=== PATIENT | female | born 1980 | race Caucasian/White ===

== ENCOUNTER 2020-05-31 15:57 | Emergency (ER) | payer MEDICARE, MEDICAID ==
[~2020-05-31] VITALS: Ht 167.7 cm; Wt 154.5 kg
[~2020-05-31 15:57] MED LIST: AC500T; AC500T PO; AMOX500C2 PO; ARIP15TA PO; ARPZ30T PO; CYCL10TA9 PO; DESV100T PO; FLC150T PO; FLX20C; FURO40TA4 PO; HYDR-31; HYDR-3874 PO; HYDR1CAP2 PO; HYDR1TAB PO; HYDR25CA5 PO; IBP800T; IBP800T PO; IMITREX PO; KCL10CCR PO; LORA10TA7 PO; LORA1TAB PO; METR500T PO; MGX400T; OLN10T; OMEP20CA6 PO; PRESTIQUE PO; SULF1TAB38; SUMA100T2 PO; [UNRECOGNIZED DRUG - CODE] PO; trazadone PO
--- NOTE | 2020-05-31 16:36 | ED Integumentary General ---
General Chief Complaint: Skin/Wound Problems Stated Complaint: 2ND COVID SHOT/RASH/L ARM SWELLING Nursing Triage Note: Pt states she had second covid vaccine today and has developed a rash and swelling on her arm Source: patient Exam Limitations: no limitations History of Present Illness Date Seen by Provider: May 31, 2020 Time Seen by Provider: 16:22 Initial Comments This pleasant 39-year-old young lady presents to the emergency room with complaints of left arm swelling, erythema, and mild itching after receiving her second vaccination of the motor during a COVID-19 vaccine. She did not have significant problems with the first dose. She denies any systemic or severe symptoms of allergic reaction such as hives, intense itching, difficulty breathing or swelling of the throat, lips, or tongue. She did take a hyd roxyzine and used topical Benadryl. This was helpful in reducing erythema and itching. She also describes some minor itching of the left upper chest. She denied any nausea, vomiting, lightheadedness, or tachycardia. Allergies and Home Medications Allergies Coded Allergies: diclofenac (Verified Allergy, Severe, BURNING, 08/06/14) ondansetron HCl (Verified Allergy, Severe, 11/03/11) INTERACTS WITH OTHER MEDS risperidone (Verified Allergy, Severe, 11/03/11) meloxicam (Verified Allergy, Intermediate, 11/03/11) COVID-19 vaccine, mRNA-1273, LNP-S (Verified Allergy, Mild, Rash, 05/31/20) Rash and itching of the left arm pseudoephedrine (Unverified Allergy, Mild, 12/20/08) tramadol (Unverified Allergy, Mild, 12/20/08) albuterol (Unverified Adverse Reaction, Unknown, tachycardia, 08/06/14) Uncoded Allergies: NSA (Allergy, Intermediate, 11/03/11) Home Medications Acetaminophen 500 Mg Tablet, 1,000 MG PO Q6H PRN, (Reported) Aripiprazole 15 Mg Tab, 15 MG PO DAILY, (Reported) AM Aripiprazole 30 Mg Tab, 30 MG PO HS, (Reported) Cyclobenzaprine Hcl 10 Mg Tablet, 10 PO BID PRN, (Reported) Desvenlafaxine Succinate 100 Mg Tab.sr.24h, 100 MG PO DAILY, (Reported) Hydrocodone Bit/Acetaminophen 1 Each Tablet, 1-2 EACH PO Q4HR PRN Prescribed by: DARLENE LOMELI on 11/03/11 1858 Hydrocodone/Acetaminophen 1 Each Tablet, 1 EACH PO Q6H PRN for PAIN Prescribed by: KAREN PORTER on 08/06/14 1747 Hydroxyzine Pamoate 25 Mg Capsule, 25 MG PO DAILY PRN, (Reported) TAKES IN THE AFTERNOON Ibuprofen 800 Mg Tablet, 1 EACH PO TID PRN, (Reported) Loratadine 10 Mg Tablet, 10 MG PO DAILY, (Reported) Omeprazole 20 Mg Capsule.dr, 40 MG PO DAILY, (Reported) Potassium Chloride 10 Meq Tablet.sa, 10 MEQ PO DAILY, (Reported) Sumatriptan Succinate 100 Mg Tablet, 0 PO UD, (Reported) 1 TAB AT ONSET OF CORONEL; MAY REPEAT X 1 IN 2 HOURS Patient Home Medication List Home Medication List Reviewed: Yes Review of Systems Review of Systems Constitutional: no symptoms reported EENTM: no symptoms reported Respiratory: no symptoms reported Cardiovascular: no symptoms reported Gastrointestinal: no symptoms reported Genitourinary: no symptoms reported : No Musculoskeletal: no symptoms reported Skin: see HPI Psychiatric/Neurological: No Symptoms Reported Endocrine: No Symptoms Reported Past Mldwkad-Fvlaar-Kiepdb Hx Past Med/Social Hx: Reviewed Nursing Past Med/Soc Hx Patient Social History Alcohol Use: Occasionally Uses Smoking Status: Current Someday Smoker Recent Infectious Disease Expo: No Recent Hopitalizations: Yes (; pancreatitis) Past Medical History Surgeries: Yes (c-sections; ovarian cyst) Respiratory: Yes (ALLERGY INDUCED ASTHMA) COPD Cardiac: Yes (ARRYTHMIA, HX OF ABLATION AGE 25; SVT) Neurological: Yes Reproductive Disorders: Yes (OVARIAN CYSTS (removed 2009)) Sexually Transmitted Disease: No Gastrointestinal: Yes (ACUTE pancreatitis - admitS 12/24/09, 12/28/09 & 01/04/10) Pancreatitis Musculoskeletal: Yes Chronic Back Pain Endocrine: Yes Diabetes, Insulin dep Psychosocial: Yes (BI-POLAR, PERSONALITY DISORDER; POST TRAMATIC STRESS DISORDER) Integumentary: No Blood Disorders: No Family Medical History No Pertinent Family Hx Physical Exam Vital Signs Vital Signs - First Documented 05/31/20 16:13 Temp 36.2 Pulse 78 Resp 18 B/P (MAP) 164/104 (124) Pulse Ox 94 O2 Delivery Room Air Capillary Refill : Less Than 3 Seconds General Appearance: WD/WN, no apparent distress HEENT: normal ENT inspection Neck: normal inspection Cardiovascular: regular rate, rhythm, no edema Respiratory: lungs clear, normal breath sounds, no respiratory distress Extremities: normal inspection, no pedal edema Neurologic/Psychiatric: no motor/sensory deficits, alert, normal mood/affect, oriented x 3 Skin: warm/dry, rash (Subtle erythema and subtle swelling of the left upper extremity from the wrist through the shoulder.) Progress/Results/Core Measures Results/Orders Vital Signs/I&O 05/31/20 05/31/20 16:13 16:44 Temp 36.2 Pulse 78 80 Resp 18 18 B/P (MAP) 164/104 (124) 140/89 Pulse Ox 94 94 O2 Delivery Room Air Blood Pressure Mean: 124 Progress Progress Note : Progress Note Patient did not appear to be in anaphylaxis. Symptoms were improving with use of antihistamines. She was advised to continue as he did with antihistamine therapy. The vaccine was added to her allergy list. Departure Impression Primary Impression: Local reaction to severe acute respiratory syndrome coronavirus 2 (SARS-CoV-2) vaccine Disposition: HOME, SELF-CARE Condition: Stable Departure-Patient Inst. Decision time for Depature: 16:34 Referrals: [facility] (PCP/Family) Primary Care Physician Patient Instructions: COVID-19 Vaccines Add. Discharge Instructions: You may continue to use [id number] antihistamines topically and/or orally. Benadryl (diphenhydramine) or hydroxyzine are both acceptable. Return to the emergency room promptly if you develop worsening symptoms c oncerning for severe allergic reaction such as hives, rapid heart rate, lightheadedness, difficulty breathing, vomiting, or swelling of the tongue, lips, or throat. Call with questions or concerns. Return to care if you have any other significant concerns or progressive symptoms. All discharge instructions reviewed with patient and/or family. Voiced understanding. Copy Copies To 1: JING WEISS JOSHUA T MD May 31, 2020 16:36
[2020-05-31 16:44] VITALS: BP 140/89
== END 2020-05-31 16:44 | disposition home or self-care (01) ==
LOC: EDUNIT# 15:57 → ER 16:00
DX: T88.1XXA Other complications following immunization, not elsewhere classified, initial encounter (principal); J44.9 Chronic obstructive pulmonary disease, unspecified; K21.9 Gastro-esophageal reflux disease without esophagitis; G89.29 Other chronic pain; M54.9 Dorsalgia, unspecified; E11.9 Type 2 diabetes mellitus without complications; F17.200 Nicotine dependence, unspecified, uncomplicated; Z88.6 Allergy status to analgesic agent; Z88.5 Allergy status to narcotic agent; Z88.7 Allergy status to serum and vaccine; Z88.8 Allergy status to other drugs, medicaments and biological substances; Z79.891 Long term (current) use of opiate analgesic
CPT/HCPCS: 99281

== ENCOUNTER 2020-09-03 17:34 | Emergency (ER) | payer MEDICARE, MEDICAID ==
[~2020-09-03] VITALS: Ht 170.2 cm; Wt 153.3 kg
[2020-09-03] MEDS ORDERED: ACHD5005 PO ×3 (18:03→18:16)
--- NOTE | 2020-09-03 18:18 | ED Headache ---
General Chief Complaint: Head/Cervical Problems Stated Complaint: HEADACHE Nursing Triage Note: PT ARRIVED TO THE ER BY PRIVATE VEHICLE WITH CHIEF COMPLAINT OF HEADACHE. PT WAS ALERT, ORIENTED X 4 AND AMBULATORY. 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 PT HAS HAD A MIGRAINE SINCE 1500 WHEN SHE TOOK HER LAST OF MEDICATIONS. TOOK HER MEDICATIONS AND DID NOT HELP. PAIN IS LOCALIZED TO OBACK AND TEMPORAL AREA. PT STATED FOR WHATEVER REASON THEY KEEP DENYING HER MEDICATION REFILLS. TODAY IS 11 YEAR ANNIVERSARY OF HER HUSBANDS PASSING. SHE KNEW SHE WOULD GET A HEADACHE, BUT DID NOT KNOW IT WOULD BE THIS BAD. PT HAS HISTORY OF MIGRAINES. PT HAS HYPERTENSION. 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 LAST ONE IN MAY 2020 PT STATES SHE HAS FREQUENT HEADACHES--AT LEAST 3 HEADACHES EVERY WEEK STATES THIS HEADACHE IS NO DIFFERENT THAN HER USUAL HEADACHES, JUST A LITTLE MO RE INTENSE, BUT HAS HAD HEADACHES THIS BAD AND WORSE IN THE PAST TOOK SUMATRIPTAN, TYLENOL 500 MG AND ZOFRAN AT 1500 STATES BLURRY VISION GOT BETTER, BUT NO RELIEF WITH HEADACHE OR NAUSEA STATES HE HAS BEEN UNDER ALOT OF STRESS LATELY--HER FATHER RECENTLY WAS PLACED ON HOSPICE IN THE LAST FEW WEEKS, AND TODAY IS 11TH ANNIVERSARY OF HER 'S . PT TAKES PROPRANOLOL FOR BLOOD PRESSURE AND HEADACHES NO CHANGE IN DOSE OR ANY MISSED DOSES. TAKES ONCE/DAY. PT IS DIABETIC, BLOOD GLUCOSE 112 AT 1700 PT SMOKES 1 PPD PCP: ADRIANNA-JAILENE, [employer] [facility] Allergies and Home Medications Allergies Coded Allergies: diclofenac (Verified Allergy, Severe, BURNING, 08/06/14) ondansetron HCl (Verified Allergy, Severe, 11/03/11) INTERACTS WITH OTHER MEDS risperidone (Verified Allergy, Severe, 11/03/11) meloxicam (Verified Allergy, Intermediate, 11/03/11) COVID-19 vaccine, mRNA-1273, LNP-S (Verified Allergy, Mild, Rash, 05/31/20) Rash and itching of the left arm pseudoephedrine (Unverified Allergy, Mild, 12/20/08) tramadol (Unverified Allergy, Mild, 12/20/08) albuterol (Unverified Adverse Reaction, Unknown, tachycardia, 08/06/14) Uncoded Allergies: NSA (Allergy, Intermediate, 11/03/11) Home Medications Acetaminophen 500 Mg Tablet, 1,000 MG PO Q6H PRN, (Reported) Aripiprazole 15 Mg Tab, 15 MG PO DAILY, (Reported) AM Aripiprazole 30 Mg Tab, 30 MG PO HS, (Reported) Cyclobenzaprine Hcl 10 Mg Tablet, 10 PO BID PRN, (Reported) Desvenlafaxine Succinate 100 Mg Tab.sr.24h, 100 MG PO DAILY, (Reported) Hydrocodone Bit/Acetaminophen 1 Each Tablet, 1-2 EACH PO Q4HR PRN Prescribed by: DARLENE LOMELI on 11/03/11 1858 Hydrocodone/Acetaminophen 1 Each Tablet, 1 EACH PO Q6H PRN for PAIN Prescribed by: KAREN PORTER on 08/06/14 1747 Hydroxyzine Pamoate 25 Mg Capsule, 25 MG PO DAILY PRN, (Reported) TAKES IN THE AFTERNOON Ibuprofen 800 Mg Tablet, 1 EACH PO TID PRN, (Reported) Loratadine 10 Mg Tablet, 10 MG PO DAILY, (Reported) Omeprazole 20 Mg Capsule.dr, 40 MG PO DAILY, (Reported) Potassium Chloride 10 Meq Tablet.sa, 10 MEQ PO DAILY, (Reported) Sumatriptan Succinate 100 Mg Tablet, 0 PO UD, (Reported) 1 TAB AT ONSET OF CORONEL; MAY REPEAT X 1 IN 2 HOURS Patient Home Medication List Home Medication List Reviewed: Yes Review of Systems Review of Systems Constitutional: no symptoms reported; No chills, No diaphoresis, No dizziness, No fever Eyes: See HPI, Blurred Vision Ears, Nose, Mouth, Throat: no symptoms reported Respiratory: no symptoms reported Cardiovascular: no symptoms reported Gastrointestinal: see HPI; No abdominal pain, No diarrhea; nausea; No vomiting Genitourinary: no symptoms reported Musculoskeletal: no symptoms reported; No back pain, No neck pain Skin: no symptoms reported; No rash Psychiatric/Neurological: See HPI, Anxiety, Depressed, Emotional Problems, Headache; Denies Numbness, Denies Paresthesia, Denies Seizure, Denies Tingling, Denies Tremors, Denies Weakness Past Knwzzqh-Hhpbhp-Ufhvxt Hx Patient Social History Tobacco Use?: Yes (SMOKES 1 PPD) Tobacco type used: Cigarettes Smoking Status: Current Everyday Smoker Smokeless Tobacco Frequency: Current Everyday User Substance use?: Yes Substance type: Marijuana Substance frequency: Daily Alcohol Use?: No Pt feels they are or have been: No Immunizations Up To Date Second COVID19 Vaccination Edwin: MAY 31, 2020 COVID19 Vaccine Knifer Up: [place] Past Medical History Surgery/Hospitalization HX: CARDIAC ABLATION AGE 25 FOR SVT C-SECTIONS OVARIAN CYST REMOVED Surgeries: Yes (c-sections; ovarian cyst) Cardiac, Section Respiratory: Yes (ALLERGY INDUCED ASTHMA) COPD Cardiac: Yes (ARRYTHMIA, HX OF ABLATION AGE 25; SVT) Hypertension, Irregular Heartbeat Neurological: Yes Headaches /Migraines Reproductive Disorders: Yes (OVARIAN CYSTS (removed 2009)) Sexually Transmitted Disease: No Genitourinary: No Gastrointestinal: Yes (ACUTE pancreatitis - admitS 12/24/09, 12/28/09 & 01/04/10) Pancreatitis Musculoskeletal: Yes Chronic Back Pain Endocrine: Yes (OBESITY) Diabetes, Insulin dep HEENT: No Psychosocial: Yes (BI-POLAR, PERSONALITY DISORDER; POST TRAMATIC STRESS DISORDER) Integumentary: No Blood Disorders: No Family Medical History No Pertinent Family Hx Physical Exam Vital Signs Vital Signs - First Documented 09/03/20 17:45 Temp 35.6 Pulse 85 Resp 18 B/P (MAP) 163/121 (135) Pulse Ox 98 O2 Delivery Room Air Capillary Refill : Less Than 3 Seconds Height, Weight, BMI Height: 5'7" Weight: 279lbs. oz. 126.133561oi; 52.00 BMI Method:Stated General Appearance: WD/WN, no apparent distress, obese HEENT: PERRL/EOMI, normal ENT inspection, TMs normal, pharynx normal Neck: non-tender, full range of motion, supple, normal inspection; No lymphadenopathy (R), No lymphadenopathy (L) Cardiovascular: regular rate, rhythm, no murmur Respiratory: normal breath sounds, no respiratory distress, no accessory muscle use Gastrointestinal: non tender, soft Back: normal inspection, no CVA tenderness, no vertebral tenderness Extremities: normal inspection, normal capillary refill Psychiatric: alert, oriented x 3 Crainal Nerves: normal hearing, normal speech, PERRL Coordination/Gait: normal finger to nose, normal gait Motor/Sensory: no motor deficit, no sensory deficit Skin: normal color, warm/dry, tattoos/piercings (TATTOOS) Progress/Results/Core Measures Results/Orders My Orders Orders - NEO MONTIEL DO Ketorolac Injection (Toradol Injection) (09/03/20 18:30) Clonidine Tablet (Catapres Tablet) (09/03/20 18:30) Medications Given in ED Vital Signs/I&O 09/03/20 09/03/20 17:45 19:55 Temp 35.6 Pulse 85 76 Resp 18 18 B/P (MAP) 163/121 (135) 139/109 Pulse Ox 98 96 O2 Delivery Room Air Room Air Blood Pressure Mean: 135 Progress Progress Note : Progress Note GIVEN TORADOL FOR HEADACHE WITH COMPLETE RELIEF OF HEADACHE--STATES SHE FEELS GREAT GIVEN CLONIDINE FOR BLOOD PRESSURE, AND BLOOD PRESSURE COMING DOWN AT DISMISSAL PT FEELS COMFORTABLE GOING HOME Departure Impression Primary Impression: Headache Additional Impression: HTN (hypertension) Disposition: 01 HOME, SELF-CARE Condition: Improved Departure-Patient Inst. Decision time for Depature: 19:35 Referrals: [facility] (PCP/Family) Primary Care Physician Patient Instructions: Headache, Adult (DC), DASH Diet, High Blood Pressure ED Add. Discharge Instructions: CONTINUE YOUR MEDICATIONS PRESCRIBED TYLENOL 1 GRAM/ MOTRIN 800 MG 4 TIMES A DAY NEEDED FOR PAIN/HEADACHE FOLLOW UP WITH YOUR DR TOMORROW IF SYMPTOMS PERSIST All discharge instructions reviewed with patient and/or family. Voiced understanding. NEO MONTIEL DO Sep 03, 2020 18:18
[2020-09-03] MEDS ORDERED: KETOROLAC 60 MG/2 ML VIAL IM ONE (18:30)
[2020-09-03] MEDS ORDERED: cloNIDine 0.1 MG (CATAPRES) TAB PO ONE (18:30)
[2020-09-03 19:55] VITALS: BP 139/109
== END 2020-09-03 19:55 | disposition home or self-care (01) ==
LOC: EDUNIT# 17:34 → ER 17:35
DX: I10 Essential (primary) hypertension (principal); G43.909 Migraine, unspecified, not intractable, without status migrainosus; E11.9 Type 2 diabetes mellitus without complications; F31.9 Bipolar disorder, unspecified; F43.10 Post-traumatic stress disorder, unspecified; F60.9 Personality disorder, unspecified; E66.9 Obesity, unspecified; J44.9 Chronic obstructive pulmonary disease, unspecified; F17.210 Nicotine dependence, cigarettes, uncomplicated; Z79.4 Long term (current) use of insulin; Z79.899 Other long term (current) drug therapy; Z88.5 Allergy status to narcotic agent; Z88.8 Allergy status to other drugs, medicaments and biological substances
CPT/HCPCS: 96372; 99284

== ENCOUNTER 2020-09-14 15:27 | Emergency (ER) | payer MEDICARE, MEDICAID ==
[~2020-09-14] VITALS: Ht 170 cm; Wt 155.0 kg
[~2020-09-14 15:27] MED LIST changes: +ACHD5005 PO
[2020-09-14 15:54] LABS: BASOPHILS # (AUTO) 0.1 10^3/uL (0.0-0.1); BASOPHILS % (AUTO) 1 % (0-10); EOSINOPHILS # (AUTO) 0.2 10^3/uL (0.0-0.3); EOSINOPHILS % (AUTO) 2 % (0-10); HEMATOCRIT 42 % (35-52); HEMOGLOBIN 13.4 g/dL (11.5-16.0); LYMPHOCYTES % (AUTO) 38 % (12-44); MEAN CORPUSCULAR HEMOGLOBIN 26 pg (25-34); MEAN CORPUSCULAR HGB CONC 32 g/dL (32-36); MEAN CORPUSCULAR VOLUME 82 fL (80-99); MEAN PLATELET VOLUME 9.4 fL (9.0-12.2); MONOCYTES # (AUTO) 1.2 10^3/uL (0.0-1.0); MONOCYTES % (AUTO) 9 % (0-12); NEUTROPHILS # (AUTO) 6.8 10^3/uL (1.8-7.8); NEUTROPHILS % (AUTO) 51 % (42-75); PLATELET COUNT 349 10^3/uL (130-400); WHITE BLOOD COUNT 13.3 10^3/uL (4.3-11.0)
[2020-09-14] MEDS ORDERED: ALPRAZolam 0.5 MG (XANAX) TAB PO SCH (16:00)
--- NOTE | 2020-09-14 16:07 | ED Chest Pain ---
General Chief Complaint: Chest Pain Stated Complaint: INTERMITTENT CP/STRESSED Source: patient Exam Limitations: no limitations History of Present Illness Date Seen by Provider: Sep 14, 2020 Time Seen by Provider: 16:07 Initial Comments ER with reports of chest pain onset last night. She attributes this to stress as her father was recently put on hospice. Timing/Duration: 1-2 days Severity/Quality: moderate Location: central Radiation: no radiation Activities at Onset: none ASA po CREPE BOX TENDER: No NTG SL CREPE BOX TENDER: No Associated Symptoms: denies symptoms Allergies and Home Medications Allergies Coded Allergies: diclofenac (Verified Allergy, Severe, BURNING, 08/06/14) ondansetron HCl (Verified Allergy, Severe, 11/03/11) INTERACTS WITH OTHER MEDS risperidone (Verified Allergy, Severe, 11/03/11) meloxicam (Verified Allergy, Intermediate, 11/03/11) COVID-19 vaccine, mRNA-1273, LNP-S (Verified Allergy, Mild, Rash, 05/31/20) Rash and itching of the left arm pseudoephedrine (Unverified Allergy, Mild, 12/20/08) tramadol (Unverified Allergy, Mild, 12/20/08) albuterol (Unverified Adverse Reaction, Unknown, tachycardia, 08/06/14) Uncoded Allergies: NSA (Allergy, Intermediate, 11/03/11) Home Medications Acetaminophen 500 Mg Tablet, 1,000 MG PO Q6H PRN, (Reported) Apixaban 5 Mg Tablet, 5 MG PO BID Prescribed by: JALEN ONEAL on 09/14/201650 Aripiprazole 15 Mg Tab, 15 MG PO DAILY, (Reported) AM Aripiprazole 30 Mg Tab, 30 MG PO HS, (Reported) Cyclobenzaprine Hcl 10 Mg Tablet, 10 PO BID PRN, (Reported) Desvenlafaxine Succinate 100 Mg Tab.sr.24h, 100 MG PO DAILY, (Reported) Diltiazem HCl 120 Mg Cap.er.24h, 120 MG PO DAILY Prescribed by: JALEN ONEAL on 09/14/20 165 Hydrocodone Bit/Acetaminophen 1 Each Tablet, 1-2 EACH PO Q4HR PRN Prescribed by: DARLENE LOMELI on 11/03/11 1858 Hydrocodone/Acetaminophen 1 Each Tablet, 1 EACH PO Q6H PRN for PAIN Prescribed by: KAREN PORTER on 08/06/14 1747 Hydroxyzine Pamoate 25 Mg Capsule, 25 MG PO DAILY PRN, (Reported) TAKES IN THE AFTERNOON Ibuprofen 800 Mg Tablet, 1 EACH PO TID PRN, (Reported) Loratadine 10 Mg Tablet, 10 MG PO DAILY, (Reported) Omeprazole 20 Mg Capsule.dr, 40 MG PO DAILY, (Reported) Potassium Chloride 10 Meq Tablet.sa, 10 MEQ PO DAILY, (Reported) Sumatriptan Succinate 100 Mg Tablet, 0 PO UD, (Reported) 1 TAB AT ONSET OF CORONEL; MAY REPEAT X 1 IN 2 HOURS Patient Home Medication List Home Medication List Reviewed: Yes Review of Systems Review of Systems Constitutional: see HPI EENTM: No Symptoms Reported Respiratory: No Symptoms Reported Cardiovascular: See HPI, Chest Pain Gastrointestinal: No Symptoms Reported Genitourinary: No Symptoms Reported Musculoskeletal: no symptoms reported Skin: no symptoms reported Psychiatric/Neurological: No Symptoms Reported Endocrine: No Symptoms Reported Hematologic/Lymphatic: No Symptoms Reported Past Whgcudb-Vweqyl-Nssmrk Hx Past Medical History Surgery/Hospitalization HX: CARDIAC ABLATION AGE 25 FOR SVT C-SECTIONS OVARIAN CYST REMOVED Surgeries: Yes (c-sections; ovarian cyst) Cardiac, Section Respiratory: Yes (ALLERGY INDUCED ASTHMA) COPD Cardiac: Yes (ARRYTHMIA, HX OF ABLATION AGE 25; SVT) Hypertension, Irregular Heartbeat Neurological: Yes Headaches /Migraines Reproductive Disorders: Yes (OVARIAN CYSTS (removed 2009)) Sexually Transmitted Disease: No Genitourinary: No Gastrointestinal: Yes (ACUTE pancreatitis - admitS 12/24/09, 12/28/09 & 01/04/10) Pancreatitis Musculoskeletal: Yes Chronic Back Pain Endocrine: Yes (OBESITY) Diabetes, Insulin dep HEENT: No Psychosocial: Yes (BI-POLAR, PERSONALITY DISORDER; POST TRAMATIC STRESS DISORDER) Integumentary: No Blood Disorders: No Family Medical History No Pertinent Family Hx Physical Exam Vital Signs Vital Signs - First Documented 09/14/20 15:33 Temp 36.0 Pulse 76 Resp 20 B/P (MAP) 167/108 (127) O2 Delivery Room Air Capillary Refill : Height, Weight, BMI Height: 5'7" Weight: 279lbs. oz. 126.990959ws; 52.00 BMI Method:Stated General Appearance: No Apparent Distress, WD/WN, Obese, Other (EKG shows a rate of 77 atrial flutter) Neck: Full Range of Motion, Normal Inspection Respiratory: No Accessory Muscle Use, No Respiratory Distress Cardiovascular: Normal Peripheral Pulses, Irregularly Irregular Gastrointestinal: Normal Bowel Sounds, Non Tender, Soft Extremity: Normal Capillary Refill, Normal Inspection Neurologic/Psychiatric: Alert, Oriented x3 Skin: Normal Color, Warm/Dry Progress/Results/Core Measures Results/Orders Lab Results Laboratory Tests Test 09/14/20 15:42 Range/Units White Blood Count 13.3 H 4.3-11.0 10^3/uL Red Blood Count 5.12 H 3.80-5.11 10^6/uL Hemoglobin 13.4 11.5-16.0 g/dL Hematocrit 42 35-52 % Mean Corpuscular Volume 82 80-99 fL Mean Corpuscular Hemoglobin 26 25-34 pg Mean Corpuscular Hemoglobin Concent 32 32-36 g/dL Red Cell Distribution Width 17.8 H 10.0-14.5 % Platelet Count 349 130-400 10^3/uL Mean Platelet Volume 9.4 9.0-12.2 fL Immature Granulocyte % (Auto) 0 % Neutrophils (%) (Auto) 51 42-75 % Lymphocytes (%) (Auto) 38 12-44 % Monocytes (%) (Auto) 9 0-12 % Eosinophils (%) (Auto) 2 0-10 % Basophils (%) (Auto) 1 0-10 % Neutrophils # (Auto) 6.8 1.8-7.8 10^3/uL Lymphocytes # (Auto) 5.0 H 1.0-4.0 10^3/uL Monocytes # (Auto) 1.2 H 0.0-1.0 10^3/uL Eosinophils # (Auto) 0.2 0.0-0.3 10^3/uL Basophils # (Auto) 0.1 0.0-0.1 10^3/uL Immature Granulocyte # (Auto) 0.1 0.0-0.1 10^3/uL Neutrophils % (Manual) 55 % Lymphocytes % (Manual) 36 % Monocytes % (Manual) 6 % Eosinophils % (Manual) 2 % Basophils % (Manual) 1 % Anisocytosis SLIGHT Microcytosis SLIGHT Prothrombin Time 12.6 12.2-14.7 SEC INR Comment 0.9 0.8-1.4 Activated Partial Thromboplast Time 29 24-35 SEC D-Dimer 0.33 0.00-0.49 UG/ML Sodium Level 141 135-145 MMOL/L Potassium Level 4.1 3.6-5.0 MMOL/L Chloride Level 105 98-107 MMOL/L Carbon Dioxide Level 25 21-32 MMOL/L Anion Gap 11 5-14 MMOL/L Blood Urea Nitrogen 9 7-18 MG/DL Creatinine 0.74 0.60-1.30 MG/DL Estimat Glomerular Filtration Rate 87 BUN/Creatinine Ratio 12 Glucose Level 134 H 70-105 MG/DL Calcium Level 9.0 8.5-10.1 MG/DL Corrected Calcium 9.1 8.5-10.1 MG/DL Magnesium Level 1.6 1.6-2.4 MG/DL Total Bilirubin 0.2 0.1-1.0 MG/DL Aspartate Amino Transf (AST/SGOT) 19 5-34 U/L Alanine Aminotransferase (ALT/SGPT) 33 0-55 U/L Alkaline Phosphatase 70 40-136 U/L Myoglobin 24.0 10.0-92.0 NG/ML Troponin I < 0.028 <0.028 NG/ML B-Type Natriuretic Peptide 43.6 <100.0 PG/ML Total Protein 7.1 6.4-8.2 GM/DL Albumin 3.9 3.2-4.5 GM/DL My Orders Orders - JALEN ONEAL APRN Cbc With Automated Diff (09/14/20 15:43) Magnesium (09/14/20 15:43) Chest 1 View, Ap/Pa Only (09/14/20 15:43) Ekg Tracing (09/14/20 15:43) Comprehensive Metabolic Panel (09/14/20 15:43) Myoglobin Serum (09/14/20 15:43) Protime With Inr (09/14/20 15:43) Partial Thromboplastin Time (09/14/20 15:43) O2 (09/14/20 15:43) Monitor-Rhythm Ecg Trace Only (09/14/20 15:43) Lipid Panel (09/15/20 06:00) Ed Iv/Invasive Line Start (09/14/20 15:43) BNP (09/14/20 15:43) Fibrin Degradation Products (09/14/20 15:43) Troponin I (09/14/20 15:43) Alprazolam Tablet (Xanax Tablet) (09/14/20 16:00) Manual Differential (09/14/20 15:42) Apixaban Tablet (Eliquis Tablet) (09/14/20 16:45) Diltiazem Cd 24 Hr Capsule (Cardizem Cd (09/14/20 16:45) Medications Given in ED Current Medications Medications Dose Ordered Sig/Sabine Route Start Time Stop Time Status Last Admin Dose Admin Apixaban 5 mg ONCE ONCE PO 09/14/20 16:45 09/14/20 16:46 DC 09/14/20 16:41 5 MG Vital Signs/I&O 09/14/20 09/14/20 15:33 15:33 Temp 36.0 Pulse 76 Resp 20 B/P (MAP) 167/108 (127) O2 Delivery Room Air Room Air Departure Communication (Admissions) She states that she has a history of SVT, she follows with an house decorator at [facility] in [place]. She had a cardiac catheterization at the age of 29. She is on propranolol. She has frequent palpitations and tachycardia that she attributes to SVT. However her EKG here shows this at this time to be rate controlled atrial flutter. She is not an ticoagulated. 1648-discussed with Dr. Landis. Her heart rate is controlled in the 70s, her blood pressure is 165/117 which is certainly going to be tolerant of a calcium channel jeremy like Cardizem CD 120 which will do daily in addition to stroke prophylaxis with Eliquis 5 mg p.o. twice daily. He will follow up with her in the clinic. Impression Primary Impression: New onset atrial flutter Disposition: , SELF-CARE Condition: Stable Departure-Patient Inst. Referrals: [facility] (PCP/Family) Primary Care Physician SYLVIE LANDIS MD Patient Instructions: Atrial Flutter (DC), Going Home on Blood Thinners Add. Discharge Instructions: 1. Call Dr. Landis Thursday to make an appointment to be seen for follow-up. In the meantime start the new medications. Be mindful that you are now on a blood thinner and so any previous injury that might not have blood much will now cause some more significant bleeding. If you fall and hit your head this does warrant evaluation in the emergency room. All discharge instructions reviewed with patient and/or family. Voiced understanding. Scripts Apixaban (Eliquis) 5 Mg Tablet 5 MG PO BID, #60 TAB Prov: JALEN ONEAL APRN 09/14/20 Diltiazem HCl (Cardizem Cd) 120 Mg Cap.er.24h 120 MG PO DAILY, #30 CAP Prov: JALEN ONEAL APRN 09/14/20 JALEN ONEAL APRN Sep 14, 2020 16:07
[2020-09-14 16:08] LABS: INR 0.9 (0.8-1.4); PROTHROMBIN TIME PATIENT 12.6 SEC (12.2-14.7)
[2020-09-14 16:09] LABS: ALBUMIN 3.9 GM/DL (3.2-4.5); POTASSIUM 4.1 MMOL/L (3.6-5.0)
[2020-09-14 16:12] LABS: TOTAL PROTEIN 7.1 GM/DL (6.4-8.2)
[2020-09-14 16:13] LABS: BILIRUBIN,TOTAL 0.2 MG/DL (0.1-1.0)
[2020-09-14 16:15] LABS: CREATININE SERUM 0.74 MG/DL (0.60-1.30)
[2020-09-14 16:17] LABS: ANISOCYTOSIS SLIGHT; BASOPHILS % (MANUAL) 1 %; EOSINOPHILS % (MANUAL) 2 %; LYMPHOCYTES % (MANUAL) 36 %; MICROCYTOSIS SLIGHT; MONOCYTES % (MANUAL) 6 %; NEUTROPHILS % (MANUAL) 55 %
[2020-09-14 16:18] LABS: MAGNESIUM 1.6 MG/DL (1.6-2.4)
--- NOTE | 2020-09-14 16:40 | Diagnostic Imaging Report ---
INDICATION: Chest pain COMPARISON: 04/12/2006 TECHNIQUE: Single Chest dated 09/14/2020. FINDINGS: Examination slightly limited secondary to patient body habitus. The cardiac silhouette is prominent. No significant pulmonary vascular congestion. No focal pulmonary opacity. No large-volume pleural effusion. No pneumothorax. No acute osseous abnormality. IMPRESSION: Prominence of the cardiac silhouette, which may be accentuated by patient body habitus and technique. No definite acute cardiopulmonary abnormality. Dictated by: Dictated on workstation # [id number]
[2020-09-14] MEDS ORDERED: APIXABAN 5 MG (ELIQUIS) TABLET PO ONE (16:45)
[2020-09-14] MEDS ORDERED: dilTIAZem120 MG (CARDIZEM CD) CAP PO SCH (16:45)
[2020-09-14] MEDS ORDERED: DILT120C82 PO (16:51)
[2020-09-14] MEDS ORDERED: APIX5TAB PO (16:51)
[2020-09-14 17:11] VITALS: BP 145/100
== END 2020-09-14 17:11 | disposition home or self-care (01) ==
LOC: EDUNIT# 15:27 → ER 15:29
DX: I48.92 Unspecified atrial flutter (principal); J44.9 Chronic obstructive pulmonary disease, unspecified; I10 Essential (primary) hypertension; G89.29 Other chronic pain; M54.9 Dorsalgia, unspecified; E11.9 Type 2 diabetes mellitus without complications; F31.9 Bipolar disorder, unspecified; E66.9 Obesity, unspecified; Z79.891 Long term (current) use of opiate analgesic; Z79.899 Other long term (current) drug therapy; Z68.43 Body mass index [BMI] 50.0-59.9, adult
CPT/HCPCS: 36415; 71045; 80053; 83735; 83874; 83880; 84484; 85007; 85027; 85379; 85610; 85730; 93005; 93041

== ENCOUNTER 2020-09-22 18:49 | Emergency (ER) | payer MEDICARE, MEDICAID ==
[~2020-09-22] VITALS: Ht 170.1 cm; Wt 145.0 kg
[~2020-09-22 18:49] MED LIST changes: +APIX5TAB PO; +DILT120C82 PO
--- NOTE | 2020-09-22 18:58 | ED Cardiac General ---
History of Present Illness General Stated Complaint: PALPITATIONS Source: patient History of Present Illness Date Seen by Provider: Sep 22, 2020 Time Seen by Provider: 18:48 Initial Comments PT ARRIVES VIA EMS FROM [facility] PT WENT TO [facility] TODAY BECAUSE OF ELEVATED BP AT HOME OF 150/90 PT C/O CHEST PAIN WHILE THERE, AND EKG WAS DONE AND SHOWED ATRIAL FLUTTER WITH RATE OF 87, SO EMS WAS CALLED. EMS GAVE 324 MG ASPIRIN PT WAS DX WITH ATRIAL FLUTTER ON 09/14/20 AND IS ON CARDIZEM, PROPRANOLOL AND ELIQUIS PT DOES NOT KNOW IF SHE IS ALWAYS IN ATRIAL FLUTTER OR NOT, DOES NOT HAVE ANY SENSATION OF IRREGULAR HEART BEAT OR PALPITATIONS STATES THE ONLY TIME SHE HAS ANY SENSATION OF AN IRREGULAR HEART BEAT IS WHEN IT IS BEATING FAST, AND HAS NOT BEEN HAVING THAT STATES SHE HAS HAD SLIGHT CHEST PAIN A COUPLE OF TIMES TODAY, BUT IS NOT HAVING PAIN NOW NO SHORTNESS OF BREATH NO SWELLING IN FEET/ANKLES NO SWEATS OR SYNCOPE PT HAD PRIOR CARDIAC ABLATION IN 2005 FOR SVT PT HAS NOT SEEN A POWERTRAIN DESIGN ENGINEER IN MANY YEARS HAS FIRST APPOINTMENT WITH DR. HOBSON 09/27/20 PCP: [facility], JUSTO RICCI POWERTRAIN DESIGN ENGINEER: DR. HOBSON Allergies and Home Medications Allergies Coded Allergies: diclofenac (Verified Allergy, Severe, BURNING, 08/06/14) ondansetron HCl (Verified Allergy, Severe, 11/03/11) INTERACTS WITH OTHER MEDS risperidone (Verified Allergy, Severe, 11/03/11) meloxicam (Verified Allergy, Intermediate, 11/03/11) COVID-19 vaccine, mRNA-1273, LNP-S (Verified Allergy, Mild, Rash, 05/31/20) Rash and itching of the left arm pseudoephedrine (Unverified Allergy, Mild, 12/20/08) tramadol (Unverified Allergy, Mild, 12/20/08) albuterol (Unverified Adverse Reaction, Unknown, tachycardia, 08/06/14) Uncoded Allergies: NSA (Allergy, Intermediate, 11/03/11) Home Medications Acetaminophen 500 Mg Tablet, 1,000 MG PO Q6H PRN, (Reported) Apixaban 5 Mg Tablet, 5 MG PO BID Prescribed by: JALEN ONEAL on 09/14/20 7001 Aripiprazole 15 Mg Tab, 15 MG PO DAILY, (Reported) AM Aripiprazole 30 Mg Tab, 30 MG PO HS, (Reported) Cyclobenzaprine Hcl 10 Mg Tablet, 10 PO BID PRN, (Reported) Desvenlafaxine Succinate 100 Mg Tab.sr.24h, 100 MG PO DAILY, (Reported) Diltiazem HCl 120 Mg Cap.er.24h, 120 MG PO DAILY Prescribed by: JALEN ONEAL on 09/14/20 1651 Hydrocodone Bit/Acetaminophen 1 Each Tablet, 1-2 EACH PO Q4HR PRN Prescribed by: DARLENE LOMELI on 11/03/11 1858 Hydrocodone/Acetaminophen 1 Each Tablet, 1 EACH PO Q6H PRN for PAIN Prescribed by: KAREN PORTER on 08/06/14 1747 Hydroxyzine Pamoate 25 Mg Capsule, 25 MG PO DAILY PRN, (Reported) TAKES IN THE AFTERNOON Ibuprofen 800 Mg Tablet, 1 EACH PO TID PRN, (Reported) Loratadine 10 Mg Tablet, 10 MG PO DAILY, (Reported) Omeprazole 20 Mg Capsule.dr, 40 MG PO DAILY, (Reported) Potassium Chloride 10 Meq Tablet.sa, 10 MEQ PO DAILY, (Reported) Sumatriptan Succinate 100 Mg Tablet, 0 PO UD, (Reported) 1 TAB AT ONSET OF CORONEL; MAY REPEAT X 1 IN 2 HOURS Review of Systems Review of Systems Constitutional: no symptoms reported; No dizziness Respiratory: No Symptoms Reported; Denies Shortness of Air Cardiovascular: See HPI Gastrointestinal: No Symptoms Reported Genitourinary: No Symptoms Reported Musculoskeletal: no symptoms reported Skin: no symptoms reported Psychiatric/Neurological: No Symptoms Reported Endocrine: No Symptoms Reported Hematologic/Lymphatic: No Symptoms Reported Past Qahpbdf-Riykro-Krxbmu Hx Patient Social History Tobacco Use?: Yes (1 PPD) Tobacco type used: Cigarettes Smoking Status: Current Everyday Smoker Substance use?: Yes Substance type: Marijuana Additional substance use comme: SMOKES MARIJUANA DAILY Substance frequency: Daily Alcohol Use?: No Past Medical History Surgery/Hospitalization HX: CARDIAC ABLATION AGE 25 FOR SVT IN 2005 C-SECTIONS OVARIAN CYST REMOVED 10/2009 Surgeries: Yes (c-sections; ovarian cyst) Cardiac, Section Respiratory: Yes (ALLERGY INDUCED ASTHMA) Asthma, COPD Cardiac: Yes (ATRIAL FLUTTER DX 09/14/20; HX OF CARDIAC ABLATION AGE 25 FOR SVT) Hypertension, Irregular Heartbeat Neurological: Yes Headaches /Migraines Reproductive Disorders: Yes (OVARIAN CYSTS (removed 2009)) Sexually Transmitted Disease: No Genitourinary: No Gastrointestinal: Yes (ACUTE PANCREATITIS/ADMITTED 12/24/09, 12/28/09 & 01/04/10) Pancreatitis Musculoskeletal: Yes Chronic Back Pain Endocrine: Yes (OBESITY) Diabetes, Insulin dep HEENT: No Cancer: No Psychosocial: Yes (BI-POLAR, PERSONALITY DISORDER; POST TRAMATIC STRESS DISORDER) Anxiety, PTSD, Bipolar, Personality Disorder, Depression Integumentary: No Blood Disorders: No Family Medical History No Pertinent Family Hx Physical Exam Vital Signs Vital Signs - First Documented 09/22/20 18:59 Temp 36.8 Pulse 85 Resp 20 B/P (MAP) 144/85 (104) Pulse Ox 97 O2 Delivery Room Air Capillary Refill : Height, Weight, BMI Height: 5'7" Weight: 279lbs. oz. 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 Norm as Tested Skin: Normal Color, Warm/Dry, Tattoos/Piercings (MULTIPLE TATTOOS) Progress/Results/Core Measures Results/Orders Lab Results Laboratory Tests Test 09/22/20 18:56 09/22/20 19:00 09/22/20 19:25 Range/Units White Blood Count 14.0 H 4.3-11.0 10^3/uL Red Blood Count 5.48 H 3.80-5.11 10^6/uL Hemoglobin 14.4 11.5-16.0 g/dL Hematocrit 45 35-52 % Mean Corpuscular Volume 82 80-99 fL Mean Corpuscular Hemoglobin 26 25-34 pg Mean Corpuscular Hemoglobin Concent 32 32-36 g/dL Red Cell Distribution Width 17.2 H 10.0-14.5 % Platelet Count 379 130-400 10^3/uL Mean Platelet Volume 9.8 9.0-12.2 fL Immature Granulocyte % (Auto) 0 % Neutrophils (%) (Auto) 53 42-75 % Lymphocytes (%) (Auto) 36 12-44 % Monocytes (%) (Auto) 9 0-12 % Eosinophils (%) (Auto) 1 0-10 % Basophils (%) (Auto) 1 0-10 % Neutrophils # (Auto) 7.5 1.8-7.8 10^3/uL Lymphocytes # (Auto) 5.0 H 1.0-4.0 10^3/uL Monocytes # (Auto) 1.3 H 0.0-1.0 10^3/uL Eosinophils # (Auto) 0.2 0.0-0.3 10^3/uL Basophils # (Auto) 0.1 0.0-0.1 10^3/uL Immature Granulocyte # (Auto) 0.0 0.0-0.1 10^3/uL Neutrophils % (Manual) 51 % Lymphocytes % (Manual) 40 % Monocytes % (Manual) 6 % Eosinophils % (Manual) 3 % Poikilocytosis SLIGHT Sodium Level 135-145 MMOL/L Potassium Level 4.1 3.6-5.0 MMOL/L Chloride Level 106 98-107 MMOL/L Carbon Dioxide Level 24 21-32 MMOL/L Anion Gap 9 5-14 MMOL/L Blood Urea Nitrogen 9 7-18 MG/DL Creatinine 0.78 0.60-1.30 MG/DL Estimat Glomerular Filtration Rate 82 BUN/Creatinine Ratio 12 Glucose Level 108 H 70-105 MG/DL Calcium Level 10.1 8.5-10.1 MG/DL Corrected Calcium 10.1 8.5-10.1 MG/DL Magnesium Level 2.1 1.6-2.4 MG/DL Total Bilirubin 0.3 0.1-1.0 MG/DL Aspartate Amino Transf (AST/SGOT) 22 5-34 U/L Alanine Aminotransferase (ALT/SGPT) 39 0-55 U/L Alkaline Phosphatase 74 40-136 U/L Troponin I < 0.028 <0.028 NG/ML B-Type Natriuretic Peptide 16.2 <100.0 PG/ML Total Protein 7.4 6.4-8.2 GM/DL Albumin 4.0 3.2-4.5 GM/DL TSH [place] Testing 2.12 0.35-4.94 UIU/ML Serum Test, Qualitative NEGATIVE NEGATIVE Glucometer 120 H 70-110 MG/DL Urine Opiates Screen NEGATIVE NEGATIVE Urine Oxycodone Screen NEGATIVE NEGATIVE Urine Methadone Screen NEGATIVE NEGATIVE Urine Propoxyphene Screen NEGATIVE NEGATIVE Urine Barbiturates Screen NEGATIVE NEGATIVE Ur Tricyclic Antidepressants Screen NEGATIVE NEGATIVE Urine Phencyclidine Screen NEGATIVE NEGATIVE Urine Amphetamines Screen NEGATIVE NEGATIVE Urine Methamphetamines Screen NEGATIVE NEGATIVE Urine Benzodiazepines Screen NEGATIVE NEGATIVE Urine Cocaine Screen NEGATIVE NEGATIVE Urine Cannabinoids Screen POSITIVE H NEGATIVE My Orders Orders - NEO MONTIEL DO Accucheck Stat ONCE (09/22/20 18:51) Ed Iv/Invasive Line Start (09/22/20 18:51) Ekg Tracing (09/22/20 18:51) Monitor-Rhythm Ecg Trace Only (09/22/20 18:51) BNP (09/22/20 18:51) Cbc With Automated Diff (09/22/20 18:51) Comprehensive Metabolic Panel (09/22/20 18:51) Drug Screen Stat (Urine) (09/22/20 18:51) Hcg,Qualitative Serum (09/22/20 18:51) Magnesium (09/22/20 18:51) Thyroid Analyzer (09/22/20 18:51) Troponin I (09/22/20 18:51) Chest 1 View, Ap/Pa Only (09/22/20 18:51) Manual Differential (09/22/20 18:56) Vital Signs/I&O 09/22/20 18:59 Temp 36.8 Pulse 85 Resp 20 B/P (MAP) 144/85 (104) Pulse Ox 97 O2 Delivery Room Air Progress Progress Note : Progress Note PT IS ASYMPTOMATIC THROUGHOUT ENTIRE ER STAY HEART RATE REMAINS IN 70'S, IN CONTINUOUS ATRIAL FLUTTER--PT IS UNAWARE OF IRREGULAR HEART BEAT BP STABLE Initial ECG Impression Date: Sep 22, 2020 Initial ECG Impression Time: 18:54 Initial ECG Rate: 77 Initial ECG Rhythm: A Fib/Flutter (ATRIAL FLUTTER) Diagnostic Imaging Comments CXR--NO ACUTE PROCESS, PER RADIOLOGIST REPORT Reviewed: Reviewed by Me Departure Communication (Admissions) 1949--SPOKE WITH DR. HOBSON, HE IS AGREEABLE TO DOING A REPEAT TROPONIN AND EKG, AND SENDING PT HOME IF UNCHANGED AND PT REMAINS ASYMPTOMATIC AND RATE CONT ROLLED. Impression Primary Impression: ATRIAL FLUTTER RATE CONTROLLED Additional Impressions: IDDM (insulin dependent diabetes mellitus) HTN (hypertension) Marijuana use Cigarette smoker Disposition: 01 HOME, SELF-CARE Condition: Stable Departure-Patient Inst. Referrals: [facility] (PCP/Family) Primary Care Physician NICO HOBSON JR, MD Patient Instructions: Atrial Flutter (DC), Controlling Blood Sugar in Children With Diabetes, High Blood Pressure (DC), Marijuana Use and Addiction (DC) Add. Discharge Instructions: CONTINUE YOUR CURRENT MEDICATIONS PRESCRIBED KEEP YOUR APPOINTMENT WITH DR. HOBSON THIS WEEK RETURN TO ER IF SYMPTOMS WORSEN NEO MONTIEL DO Sep 22, 2020 18:58
[2020-09-22 18:59] VITALS: BP 144/85
[2020-09-22 19:03] LABS: BASOPHILS # (AUTO) 0.1 10^3/uL (0.0-0.1); BASOPHILS % (AUTO) 1 % (0-10); EOSINOPHILS # (AUTO) 0.2 10^3/uL (0.0-0.3); EOSINOPHILS % (AUTO) 1 % (0-10); HEMATOCRIT 45 % (35-52); HEMOGLOBIN 14.4 g/dL (11.5-16.0); LYMPHOCYTES % (AUTO) 36 % (12-44); MEAN CORPUSCULAR HEMOGLOBIN 26 pg (25-34); MEAN CORPUSCULAR HGB CONC 32 g/dL (32-36); MEAN CORPUSCULAR VOLUME 82 fL (80-99); MEAN PLATELET VOLUME 9.8 fL (9.0-12.2); MONOCYTES # (AUTO) 1.3 10^3/uL (0.0-1.0); MONOCYTES % (AUTO) 9 % (0-12); NEUTROPHILS # (AUTO) 7.5 10^3/uL (1.8-7.8); NEUTROPHILS % (AUTO) 53 % (42-75); PLATELET COUNT 379 10^3/uL (130-400)
[2020-09-22 19:22] LABS: ALANINE AMINOTRANSFERASE 39 U/L (0-55); ALKALINE PHOSPHATASE 74 U/L (40-136); BILIRUBIN,TOTAL 0.3 MG/DL (0.1-1.0); BUN/CREATININE RATIO 12; CALCIUM 10.1 MG/DL (8.5-10.1); CARBON DIOXIDE 24 MMOL/L (21-32); CREATININE SERUM 0.78 MG/DL (0.60-1.30); GFR ESTIMATED 82; GLUCOSE 108 MG/DL (70-105); MAGNESIUM 2.1 MG/DL (1.6-2.4); TOTAL PROTEIN 7.4 GM/DL (6.4-8.2)
[2020-09-22 19:42] LABS: CHLORIDE 106 MMOL/L (98-107); POTASSIUM 4.1 MMOL/L (3.6-5.0); TSH (THYROID ANALYZER) 2.12 UIU/ML (0.35-4.94)
[2020-09-22 20:05] LABS: EOSINOPHILS % (MANUAL) 3 %; LYMPHOCYTES % (MANUAL) 40 %; MONOCYTES % (MANUAL) 6 %; NEUTROPHILS % (MANUAL) 51 %; POIKILOCYTOSIS SLIGHT
--- NOTE | 2020-09-22 20:06 | Diagnostic Imaging Report ---
EXAMINATION: Chest 1 view. HISTORY: Chest pain. COMPARISON: 09/14/2020. FINDINGS: The lung volumes are normal. No focal consolidation is seen. No large pleural effusion or pneumothorax is seen. The cardiomediastinal silhouette is normal in size and contour. No acute osseous abnormality is seen. IMPRESSION: No acute pleuroparenchymal process. Dictated by: Dictated on workstation # [id number]
[2020-09-22 20:09] LABS: AMPHETAMINE SCREEN, URINE NEGATIVE (NEGATIVE); BARBITURATE SCREEN URINE NEGATIVE (NEGATIVE); BENZODIAZEPINES SCREEN URINE NEGATIVE (NEGATIVE); CANNABINOID SCREEN, URINE POSITIVE (NEGATIVE); COCAINE SCREEN URINE NEGATIVE (NEGATIVE); METHADONE STAT NEGATIVE (NEGATIVE); METHAMPHETAMINE SCREEN URINE S NEGATIVE (NEGATIVE); OPIATE SCREEN URINE NEGATIVE (NEGATIVE); OXYCODONE STAT NEGATIVE (NEGATIVE); PROPOXYPHENE STAT NEGATIVE (NEGATIVE); TRICYCLIC ANTIDEPRESSANTS SCRE NEGATIVE (NEGATIVE)
== END 2020-09-22 21:55 | disposition home or self-care (01) ==
LOC: EDUNIT# 18:49 → ER 18:49
DX: I48.92 Unspecified atrial flutter (principal); E11.9 Type 2 diabetes mellitus without complications; I10 Essential (primary) hypertension; F12.90 Cannabis use, unspecified, uncomplicated; G43.909 Migraine, unspecified, not intractable, without status migrainosus; E66.9 Obesity, unspecified; J44.9 Chronic obstructive pulmonary disease, unspecified; G89.29 Other chronic pain; M54.9 Dorsalgia, unspecified; F41.9 Anxiety disorder, unspecified; F31.9 Bipolar disorder, unspecified; F17.210 Nicotine dependence, cigarettes, uncomplicated; Z68.43 Body mass index [BMI] 50.0-59.9, adult; Z79.891 Long term (current) use of opiate analgesic; Z79.01 Long term (current) use of anticoagulants; Z79.899 Other long term (current) drug therapy
CPT/HCPCS: 36415; 71045; 80053; 80306; 82947; 83735; 83880; 84443; 84484; 84703; 85007; 85027; 93005; 93041

== ENCOUNTER → 2020-10-02 | Outpatient (CLI) | payer MEDICARE, MEDICAID | LOC: CARD 08:26 | PROVIDERS: ATTEND Internal Medicine Cardiovascular Disease | DX: I51.7 Cardiomegaly (principal); I48.3 Typical atrial flutter | CPT/HCPCS: 93306 ==

== ENCOUNTER → 2020-10-11 | Outpatient (CLI) | payer MEDICARE, MEDICAID ==
[~2020-10-11] MED LIST changes: +CATHETER FLUSH 10 ML SYR IV PRN; +REGADENOSON 0.4 MG/5 ML SYR (LEXISCAN) IV ONE
[2020-10-11 08:15] VITALS: BP 133/94
--- NOTE | 2020-10-11 10:34 | NUCLEAR STRESS TEST ---
REGADENOSON NUCLEAR STRESS Date of procedure: 10/11/2020. Primary care provider: [facility]. Admitting physician: Agapito Canales Jr., MD. INDICATION: Typical atrial flutter. BASELINE ELECTROCARDIOGRAM: Atrial flutter with variable AV block with a ventricular rate of 80 bpm with low voltage in the precordial leads and nonspecific ST changes. STRESS TEST PROCEDURE: The patient was administered 0.4 mg of intravenous Regadenoson. The resting heart rate was 80 bpm and the peak heart rate was 100 bpm. The resting blood pressure was 134/94 mmHg and the minimum blood pressure was 127/82 mmHg. This represents a normal heart rate and a normal blood pressure response to Regadenoson. The test was stopped due to the protocol. There was no chest discomfort during the test. The patient was in atrial flutter for the duration of the test. There were no significant stress induced electrocardiogram changes. NUCLEAR PROCEDURE: The patient was administered 11 mCi of intravenous technetium 99m Tetrofosmin at rest for the rest images. The patient was subsequently administered 31.2 mCi of intravenous technetium 99m Tetrofosmin at peak stress for the stress images. Following an appropriate wait after each injection, imaging was obtained. The images were subsequently processed and reformatted in the usual views. Gated imaging was obtained. The image quality was adequate but with the fair amount of gastrointestinal and breast attenuation artifact. CT attenuation correction was used as a adjunct to standard imaging. Both the corrected and uncorrected images were reviewed for interpretation. NUCLEAR RESULTS: There was a moderate sized, moderate intensity, reversible mid to distal anterior defect with a moderate amount of inducible ischemia. There was normal left ventricular chamber size with an end-diastolic volume of 100 mL and an end-systolic volume of 27 mL. There was borderline transient ischemic dilatation. The TID ratio was 1.27. There was normal wall motion in all segments with a calculated ejection fraction of 73%. IMPRESSION: 1. Normal heart rate and blood pressure response to regadenoson. 2. There was no chest discomfort during the test. 3. The patient was in atrial flutter for the duration of the test. 4. There were no electrocardiogram changes during the test. 5. There was a moderate sized, moderate intensity, reversible mid to distal anterior defect with a moderate amount of inducible ischemia. 6. There was borderline transient ischemic dilatation with a TID ratio of 1.27. 7. There was normal wall motion in all segments with a calculated ejection fraction of 73%. 8. This is an abnormal result representing an overall moderate risk of future cardiac events. Certain portions of this document may have been dictated utilizing voice recognition technology. Inherent to this technology, typographical and grammatical errors may exist. As much as I am diligent to identify and correct these mistakes, some errors may remain in the document. AGAPITO CANALES JR, MD Oct 11, 2020 10:34
== END ==
LOC: CARD 06:39
PROVIDERS: ATTEND Internal Medicine Cardiovascular Disease
DX: I48.3 Typical atrial flutter (principal)
CPT/HCPCS: 78452; 93017; A9502

== ENCOUNTER 2020-10-25 10:35 | Day surgery (SDC) | payer MEDICARE, MEDICAID ==
[2020-10-25] VITALS (9 sets, daily range): BP systolic 102–129; BP diastolic 55–81
[~2020-10-25] VITALS: Ht 170 cm; Wt 154.0 kg
[~2020-10-25 10:35] MED LIST changes: -CATHETER FLUSH 10 ML SYR IV PRN; -REGADENOSON 0.4 MG/5 ML SYR (LEXISCAN) IV ONE
[2020-10-25] MEDS ORDERED: NS IV 1000 ML 1,000 ML IV ONE (11:30)
[2020-10-25] MEDS ORDERED: CATHETER FLUSH 10 ML SYR IV PRN (11:30)
[2020-10-25] MEDS ORDERED: ASPIRIN 81 MG CHEW (CHILDREN'S ASA) PO ONE (11:30)
[2020-10-25] MEDS ORDERED: MIDAZOLAM 5 MG/5 ML (VERSED) VIAL ONE (11:45)
[2020-10-25] MEDS ORDERED: NITRO DRIP 25000 MCG/D5W 250 ML IV ONE (11:45)
[2020-10-25] MEDS ORDERED: ASPIRIN 81 MG CHEW (CHILDREN'S ASA) ONE (11:45)
[2020-10-25] MEDS ORDERED: VERAPAMIL 5 MG/2 ML (CALAN) VIAL IV ONE (11:45)
[2020-10-25] MEDS ORDERED: HEParin 1000 UNIT/ML (10ML VIAL) FOR BOLUS ONE (11:45)
[2020-10-25] MEDS ORDERED: fentaNYL INJ 100 MCG/2 ML AMP ONE (11:46)
[2020-10-25] MEDS ORDERED: NS IV 1000 ML 1,000 ML ONE (11:51)
[2020-10-25] MEDS ORDERED: EXEN2AUT SQ (12:05)
[2020-10-25] MEDS ORDERED: DULO60CA59 PO (12:05)
[2020-10-25] MEDS ORDERED: PRAV20TA3 PO (12:05)
[2020-10-25] MEDS ORDERED: PANT40TA52 PO (12:05)
[2020-10-25] MEDS ORDERED: PROP20TA5 PO (12:05)
[2020-10-25] MEDS ORDERED: CARI4.5C PO (12:05)
[2020-10-25] MEDS ORDERED: ONDA-105 PO (12:05)
[2020-10-25] MEDS ORDERED: CETI10TA17 PO (12:05)
[2020-10-25] MEDS ORDERED: SUMA100T3 PO (12:05)
[2020-10-25] MEDS ORDERED: CYCL10TA9 PO (12:05)
[2020-10-25] MEDS ORDERED: HYDR-3584 PO (12:05)
[2020-10-25] MEDS ORDERED: PEDI18TA2 PO (12:05)
[2020-10-25] MEDS ORDERED: RT-ALBUINH INH (12:05)
[2020-10-25] MEDS ORDERED: DILT-27 PO (12:05)
[2020-10-25] MEDS ORDERED: GLIM2TAB4 PO (12:05)
[2020-10-25] MEDS ORDERED: METF-865 PO (12:05)
[2020-10-25] MEDS ORDERED: BUSP10TA95 PO ×2 (12:05)
[2020-10-25] MEDS ORDERED: APIX5TAB PO (12:05)
--- NOTE | 2020-10-25 12:05 | Pre-Op Note & Conscious Sedat ---
Pre-Operative Progress Note H&P Reviewed The H&P was reviewed, patient examined and no changes noted. Date H&P Reviewed: Oct 25, 2020 Time H&P Reviewed: 12:05 Pre-Op Diagnosis: Abnormal nuclear stress test Conscious Sedation Pre-Proced ASA Score 2 For ASA 3 and 4: Consider anesthesia and medical clearance. Also, for patients with a history of failed moderate sedation consider anesthesia. Airway Lungs Heart ASA score ASA 1: a normal healthy patient ASA 2: a patient with a mild systemic disease (mid diabetes, controlled hypertension, obesity ASA 3: a patient with a severe systemic disease that limits activity (angina, COPD, prior Myocardial infarction) ASA 4: a patient with an incapacitating disease that is a constant threat to life (CHF, renal failure) ASA 5: a moribund patient not expected to survive 24 hrs. (ruptured aneurysm) ASA 6: a declared brain- patient whose organs are being harvested. For emergent operations, add the letter E after the classification Mallampati Classification Grade 3 Sedation Plan Analgesia, Amnesia, Plan communicated to team members, Discussed options with patient/fam, Discussed risks with patient/fam The patient is an appropriate candidate to undergo the planned procedure, sedation, and anesthesia. The patient immediately re-assessed prior to indication. NICO HOBSON JR, MD Oct 25, 2020 12:05
[2020-10-25] MEDS ORDERED: PATIENT MAY USE OWN MEDS, ALL PO SCH (12:45)
[2020-10-25] MEDS ORDERED: NS IV 1000 ML 1,000 ML IV SCH (12:45)
--- NOTE | 2020-10-25 12:48 | Cardiac Cath Report ---
CARDIAC CATHETERIZATION DATE OF PROCEDURE: 10/25/2020 INDICATION: Abnormal nuclear stress test. HISTORY: The patient is a 40 year old female with typical atrial flutter who I had her undergo a nuclear stress test. This demonstrated moderate sized reversible anteroapical defect with a moderate amount of inducible ischemia with a normal ejection fraction. There was also borderline transient ischemic dilatation. This was not overall moderate risk result. In light of the abnormal stress test, she is now referred for further evaluation with a cardiac catheterization. PROCEDURES PERFORMED: 1. Left heart catheterization with hemodynamic measurements. 2. Diagnostic inupiat coronary angiography. PROCEDURE DESCRIPTION: After informed consent and in the fasting state, left heart catheterization was performed through the right radial artery utilizing a 6 [place] system by percutaneous approach. Standard Ebony catheters were utilized for the diagnostic portion of the procedure. All catheters were exchanged over a guidewire. Following the procedure, a vascular band was applied to the radial artery access site and the sheath was removed with good hemostasis. RESULTS: HEMODYNAMICS: The aortic pressure was 124/84 mmHg. The left ventricular pressure was 113/0 mmHg with a left ventricular end-diastolic pressure of 15 mmHg. There was no significant pressure gradient upon pullback across aortic valve. CORONARY ANGIOGRAPHY: Left main coronary artery: Free of significant disease. Left anterior descending coronary artery: Free of significant disease. Left circumflex coronary artery: Free of significant disease. Right coronary artery: Dominant and free of significant disease. IMPRESSION: 1. Mildly elevated left ventricular end-diastolic pressure. 2. Angiographically normal-appearing coronary arteries in a right dominant system. 3. The patient is known to have normal left ventricular systolic function with a calculated ejection fraction of 73% by nuclear stress test performed on 10/11/2020. 4. The patient most likely had a false positive stress test. Certain portions of this document may have been dictated utilizing voice re cognition technology. Inherent to this technology, typographical and grammatical errors may exist. As much as I am diligent to identify and correct these mistakes, some errors may remain in the document. NICO HOBSON JR, MD Oct 25, 2020 12:47
== END 2020-10-25 16:10 ==
LOC: CATH 10:35 → SDC 13:03 → CATH 16:10
PROVIDERS: ATTEND Internal Medicine Cardiovascular Disease
DX: I48.3 Typical atrial flutter (principal); I47.1 Supraventricular tachycardia; I10 Essential (primary) hypertension; E11.9 Type 2 diabetes mellitus without complications; E66.01 Morbid (severe) obesity due to excess calories; R94.39 Abnormal result of other cardiovascular function study; F17.210 Nicotine dependence, cigarettes, uncomplicated; Z79.899 Other long term (current) drug therapy; Z79.01 Long term (current) use of anticoagulants; Z79.84 Long term (current) use of oral hypoglycemic drugs; Z90.89 Acquired absence of other organs; Z82.49 Family history of ischemic heart disease and other diseases of the circulatory system; Z68.43 Body mass index [BMI] 50.0-59.9, adult
CPT/HCPCS: 93458; C1894

== ENCOUNTER 2020-11-16 15:22 | Emergency (ER) | payer MEDICARE, MEDICAID ==
[~2020-11-16] VITALS: Ht 170 cm; Wt 154.0 kg
[~2020-11-16 15:22] MED LIST changes: +BUSP10TA95 PO; +CARI4.5C PO; +CETI10TA17 PO; +DILT-27 PO; +DULO60CA59 PO; +EXEN2AUT SQ; +GLIM2TAB4 PO; +HYDR-3584 PO; +METF-865 PO; +ONDA-105 PO; +PANT40TA52 PO; +PEDI18TA2 PO; +PRAV20TA3 PO; +PROP20TA5 PO; +RT-ALBUINH INH; +SUMA100T3 PO
[2020-11-16] MEDS ORDERED: ALPR0.5T PO (16:28)
--- NOTE | 2020-11-16 16:28 | ED Psychosocial ---
General Chief Complaint: Psych/Social Disorder Stated Complaint: ANXIETY/EMOTIONAL/HEADACHE Nursing Triage Note: PT ARRIVES TO ER WITH C/O FEELING ANXIOUS AND EMOTIONAL DUE TO HER FATHER BEING PUT ON HOSPICE AND MENTAL HEALTH NOT HELPING HER. Source: patient Exam Limitations: no limitations History of Present Illness Date Seen by Provider: Nov 16, 2020 Time Seen by Provider: 16:25 Initial Comments To your with reports of anxiety. She was recently taken off of her hydroxyzine because it was too sedating. It was not replaced with anything and she is only on BuSpar and does not feel that it is helping. Currently her dad is on hospice, she went to visit him today and he did not recognize her and seems to be acutely worsening. She is very upset over this and would like something to help with anxiety control in the upcoming few days as he is expected to pass. Timing/Duration: this morning Severity: moderate Associated Symptoms: anxiety Allergies and Home Medications Allergies Coded Allergies: diclofenac (Verified Allergy, Severe, BURNING, 08/06/14) ondansetron HCl (Verified Allergy, Severe, 11/03/11) INTERACTS WITH OTHER MEDS risperidone (Verified Allergy, Severe, 11/03/11) meloxicam (Verified Allergy, Intermediate, 11/03/11) COVID-19 vaccine, mRNA, [id number], (Verified Allergy, Mild, Rash, 05/31/20) Rash and itching of the left arm pseudoephedrine (Unverified Allergy, Mild, 12/20/08) tramadol (Unverified Allergy, Mild, 12/20/08) albuterol (Unverified Adverse Reaction, Unknown, tachycardia, 08/06/14) Uncoded Allergies: NSA (Allergy, Intermediate, 11/03/11) Patient Home Medication List Home Medication List Reviewed: Yes Albuterol Sulfate (Proventil Hfa) 6.7 Gm Hfa.aer.ad, 2 PUFF INH Q6H PRN for SHORTNESS OF BREATH, (Reported) Entered as Reported by: GREY GORMAN on 10/25/20 1205 Apixaban (Eliquis) 5 Mg Tablet, 5 MG PO BID, (Reported) Entered as Reported by: GREY GORMAN on 10/25/20 1205 Buspirone HCl (Buspirone HCl) 10 Mg Tablet, 30 MG PO DAILY, (Reported) Entered as Reported by: GREY GORMAN on 10/25/201204 Buspirone HCl (Buspirone HCl) 10 Mg Tablet, 20 MG PO HS, (Reported) Entered as Reported by: GREY GORMAN on 10/25/201204 Cariprazine Hydrochloride (Vraylar) 4.5 Mg Capsule, 4.5 MG PO DAILY, (Reported) Entered as Reported by: GREY GORMAN on 10/25/201204 Cetirizine HCl (Cetirizine HCl) 10 Mg Tablet, 10 MG PO DAILY, (Reported) Entered as Reported by: GREY GORMAN on 10/25/201204 Cyclobenzaprine HCl (Cyclobenzaprine HCl) 10 Mg Tablet, 10 MG PO TID PRN for MUSCLE SPASMS, (Reported) Entered as Reported by: GREY GORMAN on 10/25/201204 Diltiazem HCl (Diltiazem 24Hr ER) 120 Mg Cap.er.24h, 120 MG PO DAILY, (Reported) Entered as Reported by: GREY GORMAN on 10/25/201204 Duloxetine HCl (Duloxetine HCl) 60 Mg Capsule.dr, 60 MG PO BID, (Reported) Entered as Reported by: GREY GORMAN on 10/25/201204 Exenatide Microspheres (Bydureon Bcise) 2 Mg/0.85 Ml Auto.injct, 2 MG SQ THUR, (Reported) Entered as Reported by: GREY GORMAN on 10/25/201204 Glimepiride (Glimepiride) 2 Mg Tablet, 2 MG PO DAILY, (Reported) Entered as Reported by: GREY GORMAN on 10/25/201204 Hydroxyzine HCl (Hydroxyzine HCl) 10 Mg Tablet, 5-10 MG PO DAILY PRN for ANXIETY, (Reported) Entered as Reported by: GREY GORMAN on 10/25/201204 Metformin HCl (Metformin HCl ER) 500 Mg Tab.er.24h, 1,000 MG PO BID, (Reported) Entered as Reported by: GREY GORMAN on 10/25/201204 Ondansetron HCl (Ondansetron HCl) 4 Mg Tablet, 4 MG PO Q8H PRN for NAUSEA/VOMITING-1ST LINE, (Reported) Entered as Reported by: GREY GORMAN on 10/25/201204 Pantoprazole Sodium (Pantoprazole Sodium) 40 Mg Tablet.dr, 40 MG PO BID, (Reported) Entered as Reported by: GREY GORMAN on 10/25/201204 Pedi Mv No.79/Ferrous Fumarate (Flintstones with Iron Tab Chew) 18 Mg Tab.chew, 18 MG PO DAILY, (Reported) Entered as Reported by: GREY GORMAN on 10/25/201204 Pravastatin Sodium (Pravastatin Sodium) 20 Mg Tablet, 20 MG PO HS, (Reported) Entered as Reported by: GREY GORMAN on 10/25/201204 Propranolol HCl (Propranolol HCl) 20 Mg Tablet, 20 MG PO BID, (Reported) Entered as Reported by: GREY GORMAN on 10/25/201204 Sumatriptan Succinate (Sumatriptan Succinate) 100 Mg Tablet, 100 MG PO UD PRN for MIGRAINE, (Reported) Entered as Reported by: GREY GORMAN on 10/25/201204 Review of Systems Constitutional: see HPI EENTM: see HPI Respiratory: no symptoms reported Cardiovascular: no symptoms reported Genitourinary: no symptoms reported Musculoskeletal: no symptoms reported Skin: no symptoms reported Psychiatric/Neurological: See HPI, Anxiety Past Wtzcbmp-Dvnfry-Havlns Hx Past Medical History Surgery/Hospitalization HX: CARDIAC ABLATION AGE 25 FOR SVT IN 2005 C-SECTIONS OVARIAN CYST REMOVED 10/2009 Surgeries: Yes (c-sections; ovarian cyst) Cardiac, Section Respiratory: Yes (ALLERGY INDUCED ASTHMA) Asthma, COPD Cardiac: Yes (ATRIAL FLUTTER DX 09/14/20; HX OF CARDIAC ABLATION AGE 25 FOR SVT) Hypertension, Irregular Heartbeat Neurological: Yes Headaches /Migraines Last Menstrual Period: Nov 15, 2020 Reproductive Disorders: Yes (OVARIAN CYSTS (removed 2009)) Sexually Transmitted Disease: No Genitourinary: No Gastrointestinal: Yes (ACUTE PANCREATITIS/ADMITTED 12/24/09, 12/28/09 & 01/04/10) Pancreatitis Musculoskeletal: Yes Chronic Back Pain Endocrine: Yes (OBESITY) Diabetes, Insulin dep HEENT: No Cancer: No Psychosocial: Yes (BI-POLAR, PERSONALITY DISORDER; POST TRAMATIC STRESS DISORDER) Anxiety, PTSD, Bipolar, Personality Disorder, Depression Integumentary: No Blood Disorders: No Family Medical History No Pertinent Family Hx Physical Exam Vital Signs - First Documented 11/16/20 15:41 Temp 36.5 Pulse 80 Resp 20 B/P (MAP) 135/95 (108) Pulse Ox 99 O2 Delivery Room Air Capillary Refill : Less Than 3 Seconds Height, Weight, BMI Height: 5'7" Weight: 279lbs. oz. 126.974571ko; 53.00 BMI Method:Stated General Appearance: WD/WN, no apparent distress HEENT: PERRL/EOMI, normal ENT inspection Respiratory: normal breath sounds, no respiratory distress, no accessory muscle use Gastrointestinal: normal bowel sounds, non tender, soft Extremities: normal range of motion, non-tender Neurologic/Psychiatric: alert, normal mood/affect, oriented x 3 Appearance/Memory: appropriate appearance, appropriate insight Behavior/Eye Contact: cooperative, good eye contact Thoughts/Hallucinations: normal thought pattern, no apparent hallucination Skin: normal color, warm/dry Progress/Results/Core Measures Results/Orders My Orders Orders - JALEN ONEAL APRN Alprazolam Tablet (Xanax Tablet) (11/16/20 16:30) Vital Signs/I&O 11/16/20 15:41 Temp 36.5 Pulse 80 Resp 20 B/P (MAP) 135/95 (108) Pulse Ox 99 O2 Delivery Room Air Blood Pressure Mean: 108 Departure Impression Primary Impression: Anxiety Disposition: 01 HOME, SELF-CARE Condition: Stable Departure-Patient Inst. Decision time for Depature: 16:27 Referrals: [facility]/K (PCP/Family) Primary Care Physician Patient Instructions: Anxiety, Adult (DC) Add. Discharge Instructions: All discharge instructions reviewed with patient and/or family. Voiced understanding. Scripts Alprazolam (Xanax) 0.5 Mg Tablet 0.5 MG PO BID PRN for ANXIETY, #10 TAB Prov: JALEN ONEAL APRN 11/16/20 JALEN ONEAL APRN Nov 16, 2020 16:28
[2020-11-16 16:30] VITALS: BP 135/95
[2020-11-16] MEDS ORDERED: ALPRAZolam 0.5 MG (XANAX) TAB PO SCH (16:30)
== END 2020-11-16 16:37 | disposition home or self-care (01) ==
LOC: EDUNIT# 15:22 → ER 15:24
DX: F41.9 Anxiety disorder, unspecified (principal); I10 Essential (primary) hypertension; J44.9 Chronic obstructive pulmonary disease, unspecified; E66.9 Obesity, unspecified; F31.9 Bipolar disorder, unspecified; E11.9 Type 2 diabetes mellitus without complications; G43.909 Migraine, unspecified, not intractable, without status migrainosus; Z68.43 Body mass index [BMI] 50.0-59.9, adult; Z79.01 Long term (current) use of anticoagulants; Z79.899 Other long term (current) drug therapy
CPT/HCPCS: 99283

== ENCOUNTER 2020-12-06 07:53 | Day surgery (SDC) | payer MEDICARE, MEDICAID ==
[2020-12-06] VITALS (8 sets, daily range): BP systolic 112–136; BP diastolic 75–103
[~2020-12-06] VITALS: Ht 171.5 cm; Wt 156.0 kg
[~2020-12-06 07:53] MED LIST changes: +ALPR0.5T PO
[2020-12-06] MEDS ORDERED: NS IV 1000 ML 1,000 ML ONE (07:57)
[2020-12-06] MEDS ORDERED: MIDAZOLAM 5 MG/5 ML (VERSED) VIAL IV ONE (08:15)
[2020-12-06] MEDS ORDERED: CATHETER FLUSH 10 ML SYR IV ONE (08:15)
[2020-12-06] MEDS ORDERED: NS IV 1000 ML 1,000 ML IV ONE (08:15)
[2020-12-06] MEDS ORDERED: fentaNYL INJ 100 MCG/2 ML AMP IV ONE (08:15)
[2020-12-06] MEDS ORDERED: SERT100T PO (08:27)
[2020-12-06] MEDS ORDERED: proPOfol 200 MG/20 ML (DIPRIVAN) VIAL IV ONE (08:38)
[2020-12-06] MEDS ORDERED: MIDAZOLAM 5 MG/5 ML (VERSED) VIAL ONE (08:38)
--- NOTE | 2020-12-06 09:11 | Anesthesia-General Post-Op ---
MAC Patient Condition Mental Status/LOC: Same as Preop Cardiovascular: Satisfactory Nausea/Vomiting: Absent Respiratory: Satisfactory Pain: Controlled Complications: Absent Post Op Complications Complications None Follow Up Care/Instructions Patient Instructions None needed. Anesthesiology Discharge Order Discharge Order Patient is doing well, no complaints, stable vital signs, no apparent adverse anesthesia problems. No complications reported per nursing. TAYLOR YATES CRNA Dec 06, 2020 09:11
--- NOTE | 2020-12-06 09:11 | Cardiac Procedure Note ---
Cardiology Procedures Date of Procedure 12/06/2020 DIRECT-CURRENT CARDIOVERSION INDICATION: TYPICAL ATRIAL FLUTTER. PROCEDURE: After informed consent and in the fasting state, direct-current cardioversion was performed with 1 synchronized biphasic shock at 50 J with successful conversion of atrial flutter to a junctional rhythm which later progressed to sinus rhythm with type I second-degree AV block. IMPRESSION: 1. Status post successful direct-current cardioversion with 1 synchronized biphasic shock at 50 J with conversion of typical atrial flutter to a junctional rhythm which later progressed to sinus rhythm with type I second-degree AV block. Certain portions of this document may have been dictated utilizing voice re cognition technology. Inherent to this technology, typographical and grammatical errors may exist. As much as I am diligent to identify and correct these mistakes, some errors may remain in the document. NICO HOBSON JR, MD Dec 06, 2020 09:11
== END 2020-12-06 10:21 | disposition home or self-care (01) ==
LOC: CATH 07:53
PROVIDERS: ATTEND Internal Medicine Cardiovascular Disease
DX: I48.3 Typical atrial flutter (principal); E66.01 Morbid (severe) obesity due to excess calories; E11.9 Type 2 diabetes mellitus without complications; E78.2 Mixed hyperlipidemia; I10 Essential (primary) hypertension; I71.2 Thoracic aortic aneurysm, without rupture; F17.210 Nicotine dependence, cigarettes, uncomplicated; I27.20 Pulmonary hypertension, unspecified; K21.9 Gastro-esophageal reflux disease without esophagitis; J44.9 Chronic obstructive pulmonary disease, unspecified; Z90.81 Acquired absence of spleen; Z79.84 Long term (current) use of oral hypoglycemic drugs; Z79.899 Other long term (current) drug therapy; Z68.43 Body mass index [BMI] 50.0-59.9, adult; Z88.7 Allergy status to serum and vaccine; Z88.8 Allergy status to other drugs, medicaments and biological substances
CPT/HCPCS: 84703; 92960; 93005

== ENCOUNTER 2021-01-26 16:51 | Emergency (ER) | payer MEDICARE, MEDICAID ==
[~2021-01-26] VITALS: Ht 170.2 cm; Wt 156.0 kg
[~2021-01-26 16:51] MED LIST changes: +CYCL10TA25 PO; +SERT100T PO
[2021-01-26] MEDS ORDERED: LACTATED RINGERS 1,000 ML IV STA (17:09)
[2021-01-26] MEDS ORDERED: ASPIRIN 81 MG CHEW (CHILDREN'S ASA) PO ONE (17:15)
[2021-01-26 17:26] LABS: BASOPHILS # (AUTO) 0.1 10^3/uL (0.0-0.1); BASOPHILS % (AUTO) 1 % (0-10); EOSINOPHILS # (AUTO) 0.1 10^3/uL (0.0-0.3); EOSINOPHILS % (AUTO) 1 % (0-10); HEMATOCRIT 44 % (35-52); HEMOGLOBIN 13.5 g/dL (11.5-16.0); LYMPHOCYTES # (AUTO) 4.7 10^3/uL (1.0-4.0); LYMPHOCYTES % (AUTO) 38 % (12-44); MEAN CORPUSCULAR HEMOGLOBIN 25 pg (25-34); MEAN CORPUSCULAR HGB CONC 31 g/dL (32-36); MEAN CORPUSCULAR VOLUME 79 fL (80-99); MEAN PLATELET VOLUME 9.4 fL (9.0-12.2); MONOCYTES % (AUTO) 8 % (0-12); NEUTROPHILS # (AUTO) 6.6 10^3/uL (1.8-7.8); NEUTROPHILS % (AUTO) 53 % (42-75); PLATELET COUNT 382 10^3/uL (130-400); WHITE BLOOD COUNT 12.5 10^3/uL (4.3-11.0)
--- NOTE | 2021-01-26 17:31 | ED Chest Pain ---
General Chief Complaint: Chest Pain Stated Complaint: CHEST PAIN JITTERY/SHAKEY Source: patient Exam Limitations: no limitations (VERONICA NEGRO MD) History of Present Illness Date Seen by Provider: Jan 26, 2021 Time Seen by Provider: 17:07 Initial Comments Here with report of central chest discomfort but is getting over bronchitis. She has been taking a Z-Kenneth. She did take Mucinex DM today and she has not taken that before. Symptoms started after that. She does have problems with pseudoephedrine and similar. She is also on Symbicort. Denies nausea, vomiting, diarrhea, weakness but does have cough that is resolving with bronchitis as well as central sharp intermittent chest pain that started about 3 hours ago. This is nonradiating. Denies sweating or diaphoresis. Does have history of atrial fibrillation and atrial flutter as well as SVT and has had ablations previously. 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) NTG SL WINDOW TRIMMER APPRENTICE: No Associated Symptoms: No abdominal pain, No back pain, No diaphoresis, No fever/chills, No nausea/vomiting, No shortness of breath, No weakness (VERONICA NEGRO MD) Allergies and Home Medications Allergies Coded Allergies: diclofenac (Verified Allergy, Severe, BURNING, 08/06/14) ondansetron HCl (Verified Allergy, Severe, 11/03/11) INTERACTS WITH OTHER MEDS risperidone (Verified Allergy, Severe, 11/03/11) meloxicam (Verified Allergy, Intermediate, 11/03/11) COVID-19 vaccine, mRNA, [id number], (Verified Allergy, Mild, Rash, 05/31/20) Rash and itching of the left arm pseudoephedrine (Unverified Allergy, Mild, 12/20/08) tramadol (Unverified Allergy, Mild, 12/20/08) albuterol (Unverified Adverse Reaction, Unknown, tachycardia, 08/06/14) Uncoded Allergies: NSA (Allergy, Intermediate, 11/03/11) Patient Home Medication List Home Medication List Reviewed: Yes (VERONICA NEGRO MD) Albuterol Sulfate (Proventil Hfa) 6.7 Gm Hfa.aer.ad, 2 PUFF INH Q6H PRN for SHORTNESS OF BREATH, (Reported) Entered as Reported by: GREY GORMAN on 10/25/20 120 Alprazolam (Xanax) 0.5 Mg Tablet, 0.5 MG PO BID PRN for ANXIETY Prescribed by: JALEN ONEAL on 11/16/20 1628 Apixaban (Eliquis) 5 Mg Tablet, 5 MG PO BID, (Reported) Entered as Reported by: GREY GORMAN on 10/25/20 120 Buspirone HCl (Buspirone HCl) 10 Mg Tablet, 30 MG PO DAILY, (Reported) Entered as Reported by: GREY GORMAN on 10/25/20 120 Buspirone HCl (Buspirone HCl) 10 Mg Tablet, 20 MG PO HS, (Reported) Entered as Reported by: GREY GORMAN on 10/25/20 120 Cariprazine Hydrochloride (Vraylar) 4.5 Mg Capsule, 4.5 MG PO DAILY, (Reported) Entered as Reported by: GREY GORMAN on 10/25/20 120 Cetirizine HCl (Cetirizine HCl) 10 Mg Tablet, 10 MG PO DAILY, (Reported) Entered as Reported by: GREY GORMAN on 10/25/20 120 Cyclobenzaprine HCl (Cyclobenzaprine HCl) 10 Mg Tablet, 10 MG PO TID PRN for MUSCLE SPASMS, (Reported) Entered as Reported by: GREY GORMAN on 10/25/20 120 Diltiazem HCl (Diltiazem 24Hr ER) 120 Mg Cap.er.24h, 120 MG PO DAILY, (Reported) Entered as Reported by: GREY GORMAN on 10/25/20 120 Exenatide Microspheres (Bydureon Bcise) 2 Mg/0.85 Ml Auto.injct, 2 MG SQ THUR, (Reported) Entered as Reported by: GREY GORMAN on 10/25/20 120 Glimepiride (Glimepiride) 2 Mg Tablet, 2 MG PO DAILY, (Reported) Entered as Reported by: GREY GORMAN on 10/25/20 120 Hydroxyzine HCl (Hydroxyzine HCl) 10 Mg Tablet, 5-10 MG PO DAILY PRN for ANXIETY, (Reported) Entered as Reported by: GREY GORMAN on 10/25/201204 Metformin HCl (Metformin HCl ER) 500 Mg Tab.er.24h, 1,000 MG PO BID, (Reported) Entered as Reported by: GREY GORMAN on 10/25/201204 Ondansetron HCl (Ondansetron HCl) 4 Mg Tablet, 4 MG PO Q8H PRN for NAUSEA/VOMITING-1ST LINE, (Reported) Entered as Reported by: GREY GORMAN on 10/25/201204 Pantoprazole Sodium (Pantoprazole Sodium) 40 Mg Tablet.dr, 40 MG PO BID, (Reported) Entered as Reported by: GREY GORMAN on 10/25/201204 Pedi Mv No.79/Ferrous Fumarate (Flintstones with Iron Tab Chew) 18 Mg Tab.chew, 18 MG PO DAILY, (Reported) Entered as Reported by: GREY GORMAN on 10/25/201204 Pravastatin Sodium (Pravastatin Sodium) 20 Mg Tablet, 20 MG PO HS, (Reported) Entered as Reported by: GREY GORMAN on 10/25/201204 Propranolol HCl (Propranolol HCl) 20 Mg Tablet, 20 MG PO BID, (Reported) Entered as Reported by: GREY GORMAN on 10/25/201204 Sertraline HCl (Zoloft) 100 Mg Tablet, 100 MG PO DAILY, (Reported) Entered as Reported by: RITO HADLEY on 12/06/20 0827 Sumatriptan Succinate (Sumatriptan Succinate) 100 Mg Tablet, 100 MG PO UD PRN for MIGRAINE, (Reported) Entered as Reported by: GREY GORMAN on 10/25/201204 Review of Systems Review of Systems Constitutional: see HPI; No chills, No fever; other (Jittery feeling) EENTM: No Nose Pain, No Throat Swelling Respiratory: Denies Cough, Denies SOA at Rest Cardiovascular: Chest Pain; Denies Edema; Irregular Heart Rate, Lightheadedness Gastrointestinal: Denies Nausea, Denies Vomiting Genitourinary: No Symptoms Reported Musculoskeletal: No back pain, No neck pain Skin: no symptoms reported Psychiatric/Neurological: See HPI (VERONICA NEGRO MD) All Other Systems Reviewed Negative Unless Noted: Yes (VERONICA NEGRO MD) Past Feogdww-Dkkyrj-Shefzt Hx Patient Social History Tobacco Use?: Yes Tobacco type used: Cigarettes Substance use?: Yes Substance type: Marijuana Substance frequency: Once in a while Alcohol Use?: No (VERONICA NEGRO MD) Immunizations Up To Date First/Initial COVID19 Vaccinat: APRIL 2020 Second COVID19 Vaccination Edwin: MAY 2020 (VERONICA NEGRO MD) Past Medical History Surgery/Hospitalization HX: CARDIAC ABLATION AGE 25 FOR SVT IN 2005 C-SECTIONS OVARIAN CYST REMOVED 10/2009 Surgeries: Yes (c-sections; ovarian cyst) Cardiac, Section Respiratory: Yes (ALLERGY INDUCED ASTHMA) Asthma, COPD Cardiac: Yes (ATRIAL FLUTTER DX 09/14/20; HX OF CARDIAC ABLATION AGE 25 FOR SVT) Hypertension, Irregular Heartbeat Neurological: Yes Headaches /Migraines Reproductive Disorders: Yes (OVARIAN CYSTS (removed 2009)) Sexually Transmitted Disease: No Genitourinary: No Gastrointestinal: Yes (ACUTE PANCREATITIS/ADMITTED 12/24/09, 12/28/09 & 01/04/10) Pancreatitis Musculoskeletal: Yes Chronic Back Pain Endocrine: Yes (OBESITY) Diabetes, Insulin dep HEENT: No Cancer: No Psychosocial: Yes (BI-POLAR, PERSONALITY DISORDER; POST TRAMATIC STRESS DISORDER) Anxiety, PTSD, Bipolar, Personality Disorder, Depression Integumentary: No Blood Disorders: No (VERONICA NEGRO MD) Family Medical History Reviewed Nursing Family Hx (VERONICA NEGRO MD) No Pertinent Family Hx (VERONICA NEGRO MD) Physical Exam Vital Signs Vital Signs - First Documented 01/26/21 16:57 Temp 36.5 Pulse 85 Resp 20 B/P (MAP) 146/109 (121) Pulse Ox 95 O2 Delivery Room Air (DINESH,NEO K DO) Vital Signs Capillary Refill : (VERONICA NEGRO MD) Height, Weight, BMI Height: 5'7" Weight: 279lbs. oz. 126.960397jc; 53.03 BMI Method:Stated General Appearance: No Apparent Distress, WD/WN HEENT: PERRL/EOMI, Pharynx Normal Neck: Non Tender, Supple Respiratory: Lungs Clear, Normal Breath Sounds Cardiovascular: Regular Rate, Rhythm, No Murmur Gastrointestinal: Non Tender, Soft Extremity: Normal Range of Motion, Non Tender Neurologic/Psychiatric: Alert, Oriented x3 Skin: Normal Color, Warm/Dry (VERONICA NEGRO MD) Progress/Results/Core Measures Results/Orders Lab Results Laboratory Tests Test 01/26/21 17:18 Range/Units White Blood Count 12.5 H 4.3-11.0 10^3/uL Red Blood Count 5.49 H 3.80-5.11 10^6/uL Hemoglobin 13.5 11.5-16.0 g/dL Hematocrit 44 35-52 % Mean Corpuscular Volume 79 L 80-99 fL Mean Corpuscular Hemoglobin 25 25-34 pg Mean Corpuscular Hemoglobin Concent 31 L 32-36 g/dL Red Cell Distribution Width 15.9 H 10.0-14.5 % Platelet Count 382 130-400 10^3/uL Mean Platelet Volume 9.4 9.0-12.2 fL Immature Granulocyte % (Auto) 0 % Neutrophils (%) (Auto) 53 42-75 % Lymphocytes (%) (Auto) 38 12-44 % Monocytes (%) (Auto) 8 0-12 % Eosinophils (%) (Auto) 1 0-10 % Basophils (%) (Auto) 1 0-10 % Neutrophils # (Auto) 6.6 1.8-7.8 10^3/uL Lymphocytes # (Auto) 4.7 H 1.0-4.0 10^3/uL Monocytes # (Auto) 1.0 0.0-1.0 10^3/uL Eosinophils # (Auto) 0.1 0.0-0.3 10^3/uL Basophils # (Auto) 0.1 0.0-0.1 10^3/uL Immature Granulocyte # (Auto) 0.0 0.0-0.1 10^3/uL Prothrombin Time 14.0 12.2-14.7 SEC INR Comment 1.0 0.8-1.4 Activated Partial Thromboplast Time 36 H 24-35 SEC D-Dimer 0.07 0.00-0.49 UG/ML Sodium Level 139 135-145 MMOL/L Potassium Level 4.1 3.6-5.0 MMOL/L Chloride Level 104 98-107 MMOL/L Carbon Dioxide Level 25 21-32 MMOL/L Anion Gap 10 5-14 MMOL/L Blood Urea Nitrogen 11 7-18 MG/DL Creatinine 0.79 0.60-1.30 MG/DL Estimat Glomerular Filtration Rate 81 BUN/Creatinine Ratio 14 Glucose Level 98 70-105 MG/DL Calcium Level 9.5 8.5-10.1 MG/DL Corrected Calcium 9.4 8.5-10.1 MG/DL Magnesium Level 1.9 1.6-2.4 MG/DL Total Bilirubin 0.2 0.1-1.0 MG/DL Aspartate Amino Transf (AST/SGOT) 19 5-34 U/L Alanine Aminotransferase (ALT/SGPT) 28 0-55 U/L Alkaline Phosphatase 70 40-136 U/L Myoglobin 49.8 10.0-92.0 NG/ML Troponin I < 0.028 <0.028 NG/ML Total Protein 7.5 6.4-8.2 GM/DL Albumin 4.1 3.2-4.5 GM/DL (DINESH,NEO K DO) Medications Given in ED Current Medications Medications Dose Ordered Sig/Sabine Route Start Time Stop Time Status Last Admin Dose Admin Aspirin 324 mg ONCE ONCE PO 01/26/21 17:15 01/26/21 17:16 DC 01/26/21 17:22 324 MG (DINESH,NEO K DO) Vital Signs/I&O 01/26/21 16:57 Temp 36.5 Pulse 85 Resp 20 B/P (MAP) 146/109 (121) Pulse Ox 95 O2 Delivery Room Air (DINESH,NEO K DO) Progress Progress Note : Progress Note Seen and evaluated. IV, labs, EKG, chest x-ray and ASA 324 mg p.o. ordered. I have reviewed previous history including heart cath and previous EKGs. She has normal EF and no significant vascular disease. Does have history of ablations. EKG does show a junctional rhythm QRS duration is normal. Patient had similar appearing EKG that was noted to be second-degree type I block by Dr. Canales in November of this year. The jittery feeling may be related to Mucinex DM and medication effect. We will give 1 L of LR and monitor patient. Discussed with patient to avoid [id number]-[id number] products with DM in them. (VERONICA NEGRO MD) Progress Note : Progress Note 1800--ASSUMED CARE FROM DR. NEGRO, LAB PENDING. PT IS CURRENTLY ASYMPTOMATIC. VITALS STABLE. (NEO MONTIEL DO) Initial ECG Impression Date: Jan 26, 2021 Initial ECG Impression Time: 17:01 Initial ECG Rate: 87 Comment Accelerated junctional rhythm versus atypical block second-degree. No evidence of ST elevation AL. Normal axis. Similar to 12/06/2020. Interpreted by me. (VERONICA NEGRO MD) Diagnostic Imaging Comments CXR--PER RADIOLOGIST REPORT AT 1802 FINDINGS: Cardiomegaly. Normal pulmonary vascularity. No focal pulmonary opacity. No pleural effusion or pneumothorax. No acute osseous findings. IMPRESSION: Stable cardiomegaly. No acute cardiopulmonary findings. Reviewed: Reviewed by Me (NEO MONTIEL DO) Departure Impression Primary Impression: Chest wall pain Additional Impression: Acute bronchitis Disposition: HOME, SELF-CARE Condition: Improved Departure-Patient Inst. Decision time for Depature: 18:07 (NEO MONTIEL DO) Referrals: [facility] (PCP/Family) Primary Care Physician Patient Instructions: Acute Bronchitis, Adult (DC), Costochondritis (DC) Add. Discharge Instructions: CONTINUE YOUR REGULAR MEDICATIONS PRESCRIBED AVOID OVER THE COUNTER MEDICATIONS WITH DECONGESTANTS OR COUGH SUPPRESSANTS IN THEM TYLENOL AND MOTRIN NEEDED FOR PAIN OR FEVER FOLLOW UP WITH YOUR DR IN 2-3 DAYS IF NO BETTER, RETURN TO ER IF WORSE All discharge instructions reviewed with patient and/or family. Voiced understanding. VERONICA NEGRO MD Jan 26, 2021 17:31 NEO MONTIEL DO Jan 26, 2021 18:03
[2021-01-26 17:38] LABS: ALBUMIN 4.1 GM/DL (3.2-4.5); POTASSIUM 4.1 MMOL/L (3.6-5.0)
[2021-01-26 17:39] LABS: CALCIUM 9.5 MG/DL (8.5-10.1)
[2021-01-26 17:41] LABS: TOTAL PROTEIN 7.5 GM/DL (6.4-8.2)
--- NOTE | 2021-01-26 17:41 | Diagnostic Imaging Report ---
EXAM: CHEST 1 VIEW, AP/PA ONLY INDICATION: Chest pain. COMPARISON: 09/22/2020. FINDINGS: Cardiomegaly. Normal pulmonary vascularity. No focal pulmonary opacity. No pleural effusion or pneumothorax. No acute osseous findings. IMPRESSION: Stable cardiomegaly. No acute cardiopulmonary findings. Dictated by: Dictated on workstation # [id number]
[2021-01-26 17:42] LABS: BILIRUBIN,TOTAL 0.2 MG/DL (0.1-1.0)
[2021-01-26 17:44] LABS: CREATININE SERUM 0.79 MG/DL (0.60-1.30)
[2021-01-26 17:47] LABS: MAGNESIUM 1.9 MG/DL (1.6-2.4)
[2021-01-26 18:18] VITALS: BP 127/86
== END 2021-01-26 18:19 | disposition home or self-care (01) ==
LOC: EDUNIT# 16:51 → ER 16:53
DX: R07.89 Other chest pain (principal); J20.9 Acute bronchitis, unspecified; J44.9 Chronic obstructive pulmonary disease, unspecified; I10 Essential (primary) hypertension; G43.909 Migraine, unspecified, not intractable, without status migrainosus; E11.9 Type 2 diabetes mellitus without complications; F41.9 Anxiety disorder, unspecified; F31.9 Bipolar disorder, unspecified; I48.91 Unspecified atrial fibrillation; E66.9 Obesity, unspecified; Z68.43 Body mass index [BMI] 50.0-59.9, adult; Z72.0 Tobacco use; Z79.01 Long term (current) use of anticoagulants; Z79.899 Other long term (current) drug therapy
CPT/HCPCS: 36415; 71045; 80053; 83735; 83874; 84484; 85025; 85379; 85610; 85730; 93005; 93041

== ENCOUNTER → 2021-05-09 | Outpatient (CLI) | payer MEDICARE, MEDICAID ==
--- NOTE | 2021-05-09 11:34 | Diagnostic Imaging Report ---
PROCEDURE: Pelvic comp/transvaginal sonogram. TECHNIQUE: Complete transabdominal and transvaginal pelvic ultrasound was performed. In addition, limited pelvic Doppler was performed. INDICATION: Left ovarian cyst. Uterus is anteverted measuring 7.3 x 3.6 x 4.7 cm. No myometrial mass is detected. Endometrium is 9 mm in thickness. Right ovary is surgically absent. Left ovary measures 3.6 x 3.4 x 3.7 cm. Left ovary contains multiple cysts. The largest measures 2.9 x 2.2 x 2.6 cm. There is blood flow to left ovary. No free fluid is detected. IMPRESSION: A 2.9 cm left ovarian cyst. The study is otherwise unremarkable. Dictated by: Dictated on workstation # [id number]
== END ==
LOC: RAD 10:41
PROVIDERS: ATTEND Obstetrics & Gynecology
DX: N83.202 Unspecified ovarian cyst, left side (principal)
CPT/HCPCS: 76830; 76856

== ENCOUNTER 2021-07-29 18:58 | Emergency (ER) | payer MEDICARE, MEDICAID ==
[~2021-07-29] VITALS: Ht 170.1 cm; Wt 128.3 kg
[2021-07-29] MEDS ORDERED: METOCLOPRAMIDE INJ 10 MG/2 ML (REGLAN) IVP ONE (19:15)
[2021-07-29] MEDS ORDERED: LACTATED RINGERS 1,000 ML IV ONE (19:15)
[2021-07-29 19:30] LABS: BASOPHILS # (AUTO) 0.1 10^3/uL (0.0-0.1); BASOPHILS % (AUTO) 1 % (0-10); EOSINOPHILS # (AUTO) 0.1 10^3/uL (0.0-0.3); EOSINOPHILS % (AUTO) 1 % (0-10); HEMATOCRIT 49 % (35-52); HEMOGLOBIN 15.3 g/dL (11.5-16.0); LYMPHOCYTES # (AUTO) 5.1 10^3/uL (1.0-4.0); LYMPHOCYTES % (AUTO) 31 % (12-44); MEAN CORPUSCULAR HEMOGLOBIN 25 pg (25-34); MEAN CORPUSCULAR HGB CONC 31 g/dL (32-36); MEAN CORPUSCULAR VOLUME 79 fL (80-99); MEAN PLATELET VOLUME 9.1 fL (9.0-12.2); MONOCYTES # (AUTO) 1.2 10^3/uL (0.0-1.0); MONOCYTES % (AUTO) 7 % (0-12); NEUTROPHILS # (AUTO) 10.1 10^3/uL (1.8-7.8); NEUTROPHILS % (AUTO) 60 % (42-75); PLATELET COUNT 403 10^3/uL (130-400); WHITE BLOOD COUNT 16.8 10^3/uL (4.3-11.0)
[2021-07-29 19:40] LABS: BILIRUBIN,URINE NEGATIVE (NEGATIVE); CLARITY,URINE CLEAR; COLOR,URINE YELLOW; GLUCOSE, URINE (UA) 2+ (NEGATIVE); KETONES,URINE NEGATIVE (NEGATIVE); LEUKOCYTE ESTERASE ,URINE NEGATIVE (NEGATIVE); NITRITE,URINE NEGATIVE (NEGATIVE); PROTEIN,URINE NEGATIVE (NEGATIVE)
[2021-07-29 19:45] LABS: LYMPHOCYTES % (MANUAL) 25 %; MONOCYTES % (MANUAL) 16 %; NEUTROPHILS % (MANUAL) 59 %; RBC MORPH NORMAL
[2021-07-29 19:49] LABS: BACTERIA,URINE NEGATIVE /HPF; SQUAMOUS EPITHELIAL CELL,UR 0-2 /HPF; WBC,URINE 0-2 /HPF
--- NOTE | 2021-07-29 19:56 | ED General ---
General Chief Complaint: General Problems/Pain Stated Complaint: HEAT EXHAUSTION Nursing Triage Note: pt ambulatory to room. pt states a couple hours ago she began having headache, nausea, a dizzy spell and sweating profusely. pt states she thinks she has heat exhaustion because her air conditioner went out and it is too hot in her house. Source of Information: Patient History of Present Illness Date Seen by Provider: Jul 29, 2021 Time Seen by Provider: 19:10 Initial Comments PT ARRIVES VIA POV FROM HOME PT THINKS SHE HAS HEAT EXHAUSTION AIR CONDITIONING IS OUT IN THEIR HOME TODAY, AND TEMP IN HOUSE IS 83 DEGREES. WAS OUTSIDE FOR A TOTAL OF AN HOUR YESTERDAY, BUT NOT CONSISTENTLY-IN HEAT FOR ONLY A FEW MINUTES AT A TIME. HAD AIR CONDITIONING YESTERDAY AND LAST NIGHT, JUST NOT TODAY WOKE UP THIS MORNING WITH LEG CRAMPS, BUT NONE SINCE STATES FOR THE LAST FEW HOURS SHE HAS BEEN FEELING: -NAUSEA, NO VOMITING, NO DIARRHEA, NO ABDOMINAL PAIN -HAD BRIEF EPISODE OF DIZZINESS. NOT NOW -HAS GENERALIZED HEADACHE -HAS BEEN "PROFUSELY SWEATY ALL DAY, AND NOW SHE ISN'T SWEATING" HAS NOT CHECKED HER TEMPERATURE NO CHEST PAIN NO SHORTNESS OF BREATH NO PALPITATIONS NO VISION CHANGES HAS BEEN DRINKING WATER AND GATORADE TODAY, AND VOIDED 40 MINUTES AGO, BUT THINKS SHE DID NOT VOID MUCH USUAL HAS HAD DECREASED APPETITE TODAY--ATE A SANDWICH AND APPLESAUCE EARLIER TODAY PT HAS HAD COVID-19 VACCINE X 3--LAST ONE > 6 MONTHS GO PT HAS COPD, BUT NO INCREASE IN SHORTNESS OF BREATH. STATES HER COUGH IS ALWAYS WORSE WHEN SHE GETS HOT. NO RECENT ILLNESS NO KNOWN SICK CONTACTS. PT IS NOT EMPLOYED PCP: ADRIANNA-JAILENE, OCE[employer] SCI[employer] PROFESSOR [employer]HAMES Allergies and Home Medications Allergies Coded Allergies: diclofenac (Verified Allergy, Severe, BURNING, 08/06/14) ondansetron HCl (Verified Allergy, Severe, 11/03/11) INTERACTS WITH OTHER MEDS risperidone (Verified Allergy, Severe, 11/03/11) meloxicam (Verified Allergy, Intermediate, 11/03/11) COVID-19 vaccine, mRNA, [id number], (Verified Allergy, Mild, Rash, 05/31/20) Rash and itching of the left arm pseudoephedrine (Unverified Allergy, Mild, 12/20/08) tramadol (Unverified Allergy, Mild, 12/20/08) albuterol (Unverified Adverse Reaction, Unknown, tachycardia, 08/06/14) Uncoded Allergies: NSA (Allergy, Intermediate, 11/03/11) Patient Home Medication List Home Medication List Reviewed: Yes Albuterol Sulfate (Proventil Hfa) 6.7 Gm Hfa.aer.ad, 2 PUFF INH Q6H PRN for SHORTNESS OF BREATH, (Reported) Entered as Reported by: GREY GORMAN on 10/25/20 1205 Alprazolam (Xanax) 0.5 Mg Tablet, 0.5 MG PO BID PRN for ANXIETY Prescribed by: JALEN ONEAL on 11/16/20 1628 Apixaban (Eliquis) 5 Mg Tablet, 5 MG PO BID, (Reported) Entered as Reported by: GREY GORMAN on 10/25/20 120 Buspirone HCl (Buspirone HCl) 10 Mg Tablet, 30 MG PO DAILY, (Reported) Entered as Reported by: GREY GORMAN on 10/25/20 1205 Buspirone HCl (Buspirone HCl) 10 Mg Tablet, 20 MG PO HS, (Reported) Entered as Reported by: GREY GORMAN on 10/25/20 120 Cariprazine Hydrochloride (Vraylar) 4.5 Mg Capsule, 4.5 MG PO DAILY, (Reported) Entered as Reported by: GREY GORMAN on 10/25/20 120 Cetirizine HCl (Cetirizine HCl) 10 Mg Tablet, 10 MG PO DAILY, (Reported) Entered as Reported by: GREY GORMAN on 10/25/20 120 Cyclobenzaprine HCl (Cyclobenzaprine HCl) 10 Mg Tablet, 10 MG PO TID PRN for MUSCLE SPASMS, (Reported) Entered as Reported by: GREY GORMAN on 10/25/20 1205 Diltiazem HCl (Diltiazem 24Hr ER) 120 Mg Cap.er.24h, 120 MG PO DAILY, (Reported) Entered as Reported by: GREY GORMAN on 10/25/20 1205 Exenatide Microspheres (Bydureon Bcise) 2 Mg/0.85 Ml Auto.injct, 2 MG SQ THUR, (Reported) Entered as Reported by: GREY GORMAN on 10/25/201204 Glimepiride (Glimepiride) 2 Mg Tablet, 2 MG PO DAILY, (Reported) Entered as Reported by: GREY GORMAN on 10/25/201204 Hydroxyzine HCl (Hydroxyzine HCl) 10 Mg Tablet, 5-10 MG PO DAILY PRN for ANXIETY, (Reported) Entered as Reported by: GREY GORMAN on 10/25/201204 Metformin HCl (Metformin HCl ER) 500 Mg Tab.er.24h, 1,000 MG PO BID, (Reported) Entered as Reported by: GREY GORMAN on 10/25/201204 Ondansetron HCl (Ondansetron HCl) 4 Mg Tablet, 4 MG PO Q8H PRN for NAUSEA/VOMITING-1ST LINE, (Reported) Entered as Reported by: GREY GORMAN on 10/25/201204 Pantoprazole Sodium (Pantoprazole Sodium) 40 Mg Tablet.dr, 40 MG PO BID, (Reported) Entered as Reported by: GREY GORMAN on 10/25/201204 Pedi Mv No.79/Ferrous Fumarate (Flintstones with Iron Tab Chew) 18 Mg Tab.chew, 18 MG PO DAILY, (Reported) Entered as Reported by: GREY GORMAN on 10/25/201204 Pravastatin Sodium (Pravastatin Sodium) 20 Mg Tablet, 20 MG PO HS, (Reported) Entered as Reported by: GREY GORMAN on 10/25/201204 Propranolol HCl (Propranolol HCl) 20 Mg Tablet, 20 MG PO BID, (Reported) Entered as Reported by: GREY GORMAN on 10/25/201204 Sertraline HCl (Zoloft) 100 Mg Tablet, 100 MG PO DAILY, (Reported) Entered as Reported by: RITO HADLEY on 12/06/20 0827 Sumatriptan Succinate (Sumatriptan Succinate) 100 Mg Tablet, 100 MG PO UD PRN for MIGRAINE, (Reported) Entered as Reported by: GREY GORMAN on 10/25/201204 Review of Systems Review of Systems Constitutional: see HPI, dizziness, malaise, weakness EENTM: no symptoms reported Respiratory: see HPI Cardiovascular: no symptoms reported; No chest pain, No edema, No palpitations, No syncope, No vascular heart diseas Gastrointestinal: see HPI; No abdominal pain, No diarrhea; loss of appetite, nausea; No vomiting Genitourinary: see HPI, decreased output Musculoskeletal: no symptoms reported Skin: no symptoms reported Psychiatric/Neurological: See HPI, Headache; Denies Numbness, Denies Paresthesia, Denies Tingling, Denies Weakness Hematologic/Lymphatic: No Symptoms Reported Immunological/Allergic: no symptoms reported Past Gcovxee-Jwewtd-Slbylb Hx Patient Social History Tobacco Use?: Yes Tobacco type used: Cigarettes Smoking Status: Current Everyday Smoker Use of E-Cig and/or Vaping dev: No Substance use?: Yes Substance type: Marijuana Substance frequency: Daily Alcohol Use?: No Immunizations Up To Date Influenza Vaccine Up-to-Date: Yes; Up-to-Date First/Initial COVID19 Vaccinat: APRIL 2020 Second COVID19 Vaccination Edwin: MAY 2020 Past Medical History Surgery/Hospitalization HX: CARDIAC ABLATION AGE 25 FOR SVT IN 2005, C-SECTIONS, OVARIAN CYST REMOVED 10/2009, CARDIOVERSION FOR A FLUTTER IN NOV 2020 Surgeries: Yes (c-sections; ovarian cyst) Cardiac, Section Respiratory: Yes (ALLERGY INDUCED ASTHMA) Asthma, COPD Cardiac: Yes (ATRIAL FLUTTER DX 09/14/20; HX OF CARDIAC ABLATION AGE 25 FOR SVT) Atrial Fibrillation, High Cholesterol, Hypertension, Irregular Heartbeat Neurological: Yes Headaches /Migraines Reproductive Disorders: Yes (OVARIAN CYSTS (removed 2009)) Female Reproductive Disorders: Ovarian Cyst Sexually Transmitted Disease: No Genitourinary: No Gastrointestinal: Yes (ACUTE PANCREATITIS/ADMITTED 12/24/09, 12/28/09 & 01/04/10) Pancreatitis Musculoskeletal: Yes Chronic Back Pain Endocrine: Yes (OBESITY) Diabetes, Insulin dep HEENT: No Cancer: No Psychosocial: Yes (BI-POLAR, PERSONALITY DISORDER; POST TRAMATIC STRESS DISORDER) Anxiety, PTSD, Bipolar, Personality Disorder, Depression Integumentary: No Blood Disorders: No Family Medical History No Pertinent Family Hx SOCIAL HISTORY: -SMOKES 1 PPD -ETOH--DENIES USE -DRUGS--SMOKES MARIJUANA DAILY PAST SURGICAL HISTORY: -CARDIAC ABLATION AGE 25 FOR SVT IN 2005 -CARDIOVERSION FOR ATRIAL FLUTTER 11/2020 -C-SECTIONS -OVARIAN CYST REMOVED 10/2009 Physical Exam Vital Signs Vital Signs - First Documented 07/29/21 19:10 Temp 37.0 Pulse 91 Resp 20 B/P (MAP) 123/93 (103) Pulse Ox 96 Capillary Refill : Height, Weight, BMI Height: 5'7" Weight: 279lbs. oz. 126.592799bf; 44.00 BMI Method:Stated General Appearance: No Apparent Distress, WD/WN, Obese, Other (DOES NOT APPEAR ILL OR TO BE IN ANY DISCOMFORT OR DISTRESS. REEKS OF CIGARETTES AND THC. 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 Norm as Tested; No Abnormal Cerebellar Tests Skin: Normal Color, Warm/Dry, Tattoos/Piercings Progress/Results/Core Measures Suspected Sepsis SIRS Temperature: Pulse: 91 Respiratory Rate: 20 Laboratory Tests 07/29/21 19:20: White Blood Count 16.8H Blood Pressure 123 /93 Mean: 103 Laboratory Tests 07/29/21 19:20: Creatinine 0.93, Platelet Count 403H, Total Bilirubin 0.3 Results/Orders Lab Results Laboratory Tests Test 07/29/21 19:20 07/29/21 19:33 07/29/21 19:56 Range/Units White Blood Count 16.8 H 4.3-11.0 10^3/uL Red Blood Count 6.21 H 3.80-5.11 10^6/uL Hemoglobin 15.3 11.5-16.0 g/dL Hematocrit 49 35-52 % Mean Corpuscular Volume 79 L 80-99 fL Mean Corpuscular Hemoglobin 25 25-34 pg Mean Corpuscular Hemoglobin Concent 31 L 32-36 g/dL Red Cell Distribution Width 19.9 H 10.0-14.5 % Platelet Count 403 H 130-400 10^3/uL Mean Platelet Volume 9.1 9.0-12.2 fL Immature Granulocyte % (Auto) 0 % Neutrophils (%) (Auto) 60 42-75 % Lymphocytes (%) (Auto) 31 12-44 % Monocytes (%) (Auto) 7 0-12 % Eosinophils (%) (Auto) 1 0-10 % Basophils (%) (Auto) 1 0-10 % Neutrophils # (Auto) 10.1 H 1.8-7.8 10^3/uL Lymphocytes # (Auto) 5.1 H 1.0-4.0 10^3/uL Monocytes # (Auto) 1.2 H 0.0-1.0 10^3/uL Eosinophils # (Auto) 0.1 0.0-0.3 10^3/uL Basophils # (Auto) 0.1 0.0-0.1 10^3/uL Immature Granulocyte # (Auto) 0.1 0.0-0.1 10^3/uL Neutrophils % (Manual) 59 % Lymphocytes % (Manual) 25 % Monocytes % (Manual) 16 % Blood Morphology Comment NORMAL Sodium Level 139 135-145 MMOL/L Potassium Level 4.0 3.6-5.0 MMOL/L Chloride Level 103 98-107 MMOL/L Carbon Dioxide Level 22 21-32 MMOL/L Anion Gap 14 5-14 MMOL/L Blood Urea Nitrogen 9 7-18 MG/DL Creatinine 0.93 0.60-1.30 MG/DL Estimat Glomerular Filtration Rate 80 BUN/Creatinine Ratio 10 Glucose Level 110 H 70-105 MG/DL Calcium Level 9.8 8.5-10.1 MG/DL Corrected Calcium 9.6 8.5-10.1 MG/DL Magnesium Level 2.3 1.6-2.4 MG/DL Total Bilirubin 0.3 0.1-1.0 MG/DL Aspartate Amino Transf (AST/SGOT) 16 5-34 U/L Alanine Aminotransferase (ALT/SGPT) 30 0-55 U/L Alkaline Phosphatase 59 40-136 U/L Total Creatine Kinase 73 29-168 U/L Creatine Kinase MB 0.8 <6.6 NG/ML Troponin I < 0.028 <0.028 NG/ML Total Protein 7.3 6.4-8.2 GM/DL Albumin 4.3 3.2-4.5 GM/DL Amylase Level 44 25-125 U/L Lipase 27 8-78 U/L TSH [place] Testing 2.55 0.35-4.94 UIU/ML Serum Test, Qualitative NEGATIVE NEGATIVE Influenza Type A (RT-PCR) Not Detected Not Detecte Influenza Type B (RT-PCR) Not Detected Not Detecte SARS-CoV-2 RNA (RT-PCR) Not Detected Not Detecte Urine Color YELLOW Urine Clarity CLEAR Urine pH 5.0 5-9 Urine Specific [place] >=1.030 1.016-1.022 Urine Protein NEGATIVE NEGATIVE Urine Glucose (UA) 2+ H NEGATIVE Urine Ketones NEGATIVE NEGATIVE Urine Nitrite NEGATIVE NEGATIVE Urine Bilirubin NEGATIVE NEGATIVE Urine Urobilinogen 0.2 < = 1.0 MG/DL Urine Leukocyte Esterase NEGATIVE NEGATIVE Urine RBC (Auto) NEGATIVE NEGATIVE Urine RBC NONE /HPF Urine WBC 0-2 /HPF Urine Squamous Epithelial Cells 0-2 /HPF Urine Renal Epithelial Cells NONE /HPF Urine Crystals NONE /LPF Urine Bacteria NEGATIVE /HPF Urine Casts NONE /LPF Urine Mucus NEGATIVE /LPF Urine Culture Indicated NO Urine Opiates Screen NEGATIVE NEGATIVE Urine Oxycodone Screen NEGATIVE NEGATIVE Urine Methadone Screen NEGATIVE NEGATIVE Urine Propoxyphene Screen NEGATIVE NEGATIVE Urine Barbiturates Screen NEGATIVE NEGATIVE Ur Tricyclic Antidepressants Screen POSITIVE H NEGATIVE Urine Phencyclidine Screen NEGATIVE NEGATIVE Urine Amphetamines Screen NEGATIVE NEGATIVE Urine Methamphetamines Screen NEGATIVE NEGATIVE Urine Benzodiazepines Screen NEGATIVE NEGATIVE Urine Cocaine Screen NEGATIVE NEGATIVE Urine Cannabinoids Screen POSITIVE H NEGATIVE Serum Alcohol < 10 <10 MG/DL My Orders Orders - NEO MONTIEL DO Ed Iv/Invasive Line Start (07/29/21 19:15) Ekg Tracing (07/29/21 19:15) Monitor-Rhythm Ecg Trace Only (07/29/21 19:15) Amylase (07/29/21 19:15) Cbc With Automated Diff (07/29/21 19:15) Comprehensive Metabolic Panel (07/29/21 19:15) Creatine Kinase (07/29/21 19:15) Creatine Kinase Mb (07/29/21 19:15) Lipase (07/29/21 19:15) Magnesium (07/29/21 19:15) Thyroid Analyzer (07/29/21 19:15) Ua Culture If Indicated (07/29/21 19:15) Troponin I [place] (07/29/21 19:15) Ed Iv/Invasive Line Start (07/29/21 19:15) Lactated Ringers (Lr 1000 Ml Iv Solution (07/29/21 19:15) Covid 19 Inhouse Test (07/29/21 19:15) Influenza A And B By Pcr (07/29/21 19:15) Isolation Central Supply Req (07/29/21 19:15) Hcg,Qualitative Serum (07/29/21 19:15) Metoclopramide Injection (Reglan Injecti (07/29/21 19:15) Manual Differential (07/29/21 19:20) Alcohol (07/29/21 19:56) Drug Screen Stat (Urine) (07/29/21 19:56) Medications Given in ED Vital Signs/I&O 07/29/21 07/29/21 19:10 20:55 Temp 37.0 Pulse 91 83 Resp 20 12 B/P (MAP) 123/93 (103) 124/95 Pulse Ox 96 95 07/30/21 00:00 Intake Total 1000 ml Balance 1000 ml Capillary Refill : Blood Pressure Mean: 103 Progress Note : Progress Note COVID TESTING DONE GIVEN IV FLUIDS AND REGLAN WITH IMPROVEMENT IN SYMPTOMS--STATES SHE FEELS GREAT AT DISMISSAL STATES SHE HAS AN UNKNOWN NAUSEA MEDICATION AT HOME, "BUT I DIDN'T THING ABOUT TAKING IT" ECG Initial ECG Impression Date: Jul 29, 2021 Initial ECG Impression Time: 19:29 Initial ECG Rate: 83 Initial ECG Rhythm: Normal Sinus Initial ECG Impression: Nonspecific Changes Initial ECG Comparisson: Unchanged Departure Impression Primary Impression: Heat exhaustion Disposition: 01 HOME, SELF-CARE Condition: Improved Departure-Patient Inst. Decision time for Depature: 20:39 Referrals: [facility] [place] (PCP/Family) Primary Care Physician Patient Instructions: Heat Illness ED Add. Discharge Instructions: LOTS OF CLEAR LIQUIDS--WATER, BROTH,JELLO, GATORADE DRINK ENOUGH SO YOU ARE URINATING EVERY 2 HOURS WHILE YOU ARE AWAKE CONTINUE YOUR REGULAR MEDICATIONS PRESCRIBED TAKE YOUR HOME NAUSEA MEDICATION NEEDED FOLLOW UP WITH YOUR DR IN 1-2 DAYS IF NO BETTER, RETURN TO ER IF WORSE All discharge instructions reviewed with patient and/or family. Voiced understanding. NEO MONTIEL DO Jul 29, 2021 19:56
[2021-07-29 19:58] LABS: ALANINE AMINOTRANSFERASE 30 U/L (0-55); ALBUMIN 4.3 GM/DL (3.2-4.5); ALKALINE PHOSPHATASE 59 U/L (40-136); AMYLASE 44 U/L (25-125); BILIRUBIN,TOTAL 0.3 MG/DL (0.1-1.0); BUN/CREATININE RATIO 10; CALCIUM 9.8 MG/DL (8.5-10.1); CARBON DIOXIDE 22 MMOL/L (21-32); CREATINE KINASE 73 U/L (29-168); CREATININE SERUM 0.93 MG/DL (0.60-1.30); GFR ESTIMATED 80; GLUCOSE 110 MG/DL (70-105); MAGNESIUM 2.3 MG/DL (1.6-2.4); TOTAL PROTEIN 7.3 GM/DL (6.4-8.2)
[2021-07-29 20:19] LABS: CHLORIDE 103 MMOL/L (98-107); SODIUM 139 MMOL/L (135-145)
[2021-07-29 20:21] LABS: AMPHETAMINE SCREEN, URINE NEGATIVE (NEGATIVE); BARBITURATE SCREEN URINE NEGATIVE (NEGATIVE); BENZODIAZEPINES SCREEN URINE NEGATIVE (NEGATIVE); CANNABINOID SCREEN, URINE POSITIVE (NEGATIVE); COCAINE SCREEN URINE NEGATIVE (NEGATIVE); METHADONE STAT NEGATIVE (NEGATIVE); OPIATE SCREEN URINE NEGATIVE (NEGATIVE); OXYCODONE STAT NEGATIVE (NEGATIVE); PROPOXYPHENE STAT NEGATIVE (NEGATIVE); TRICYCLIC ANTIDEPRESSANTS SCRE POSITIVE (NEGATIVE)
[2021-07-29 20:22] LABS: CREATINE KINASE MB 0.8 NG/ML (<6.6); TSH (THYROID ANALYZER) 2.55 UIU/ML (0.35-4.94)
[2021-07-29 20:40] LABS: LIPASE 27 U/L (8-78)
[2021-07-29 20:55] VITALS: BP 124/95
== END 2021-07-29 20:57 | disposition home or self-care (01) ==
LOC: EDUNIT# 18:58 → ER 19:02
DX: T67.5XXA Heat exhaustion, unspecified, initial encounter (principal); E66.9 Obesity, unspecified; E11.9 Type 2 diabetes mellitus without complications; F17.210 Nicotine dependence, cigarettes, uncomplicated; Z68.41 Body mass index [BMI] 40.0-44.9, adult; Z20.822 Contact with and (suspected) exposure to COVID-19; Z28.311 Partially vaccinated for COVID-19; Z79.4 Long term (current) use of insulin; X30.XXXA Exposure to excessive natural heat, initial encounter
CPT/HCPCS: 80053; 80306; 81000; 82150; 82550; 82553; 83690; 83735; 84443; 84484; 84703; 85007; 85027; 87636; 93041; G0480; 36415; 80320; 93005

== ENCOUNTER → 2021-08-07 | Outpatient (CLI) | payer MEDICARE, MEDICAID ==
[~2021-08-07] MED LIST changes: +RT-ALBUTEROL SULF 2.5 MG/3 ML PRE-MIX VIAL INH ONE
== END ==
LOC: RT 13:55
PROVIDERS: ATTEND Nurse Practitioner Family
DX: J45.901 Unspecified asthma with (acute) exacerbation (principal); E66.01 Morbid (severe) obesity due to excess calories
CPT/HCPCS: 94060; 94726; 94729

== ENCOUNTER → 2021-09-04 | Outpatient (CLI) | payer MEDICARE, MEDICAID ==
[~2021-09-04] MED LIST changes: -RT-ALBUTEROL SULF 2.5 MG/3 ML PRE-MIX VIAL INH ONE
[2021-09-04 15:42] LABS: BASOPHILS # (AUTO) 0.1 10^3/uL (0.0-0.1); BASOPHILS % (AUTO) 0 % (0-10); EOSINOPHILS # (AUTO) 0.2 10^3/uL (0.0-0.3); EOSINOPHILS % (AUTO) 2 % (0-10); HEMATOCRIT 47 % (35-52); HEMOGLOBIN 14.6 g/dL (11.5-16.0); LYMPHOCYTES # (AUTO) 3.9 10^3/uL (1.0-4.0); LYMPHOCYTES % (AUTO) 29 % (12-44); MEAN CORPUSCULAR HEMOGLOBIN 25 pg (25-34); MEAN CORPUSCULAR HGB CONC 31 g/dL (32-36); MEAN CORPUSCULAR VOLUME 80 fL (80-99); MEAN PLATELET VOLUME 9.1 fL (9.0-12.2); MONOCYTES # (AUTO) 0.9 10^3/uL (0.0-1.0); MONOCYTES % (AUTO) 7 % (0-12); NEUTROPHILS # (AUTO) 8.4 10^3/uL (1.8-7.8); NEUTROPHILS % (AUTO) 62 % (42-75); PLATELET COUNT 406 10^3/uL (130-400); WHITE BLOOD COUNT 13.5 10^3/uL (4.3-11.0)
== END ==
LOC: LAB 15:26
PROVIDERS: ATTEND Internal Medicine Cardiovascular Disease
DX: K92.1 Melena (principal)
CPT/HCPCS: 36415; 85025

== ENCOUNTER 2021-09-14 21:53 | Emergency (ER) | payer MEDICARE, MEDICAID ==
[2021-09-14 22:06] VITALS: BP 118/78
[2021-09-14] MEDS ORDERED: NS IV 1000 ML 1,000 ML IV SCH (22:30)
[2021-09-14 22:43] LABS: BASOPHILS # (AUTO) 0.1 10^3/uL (0.0-0.1); BASOPHILS % (AUTO) 1 % (0-10); EOSINOPHILS # (AUTO) 0.2 10^3/uL (0.0-0.3); EOSINOPHILS % (AUTO) 1 % (0-10); HEMATOCRIT 46 % (35-52); HEMOGLOBIN 14.8 g/dL (11.5-16.0); LYMPHOCYTES # (AUTO) 5.2 10^3/uL (1.0-4.0); LYMPHOCYTES % (AUTO) 32 % (12-44); MEAN CORPUSCULAR HEMOGLOBIN 26 pg (25-34); MEAN CORPUSCULAR HGB CONC 32 g/dL (32-36); MEAN CORPUSCULAR VOLUME 80 fL (80-99); MEAN PLATELET VOLUME 9.3 fL (9.0-12.2); MONOCYTES # (AUTO) 1.3 10^3/uL (0.0-1.0); MONOCYTES % (AUTO) 8 % (0-12); NEUTROPHILS # (AUTO) 9.8 10^3/uL (1.8-7.8); NEUTROPHILS % (AUTO) 59 % (42-75); PLATELET COUNT 416 10^3/uL (130-400); WHITE BLOOD COUNT 16.6 10^3/uL (4.3-11.0)
[2021-09-14 22:56] LABS: INR 1.1 (0.8-1.4); PROTHROMBIN TIME PATIENT 14.7 SEC (12.2-14.7)
[2021-09-14 23:03] LABS: ALBUMIN 4.1 GM/DL (3.2-4.5)
[2021-09-14 23:05] LABS: CALCIUM 9.6 MG/DL (8.5-10.1)
[2021-09-14 23:06] LABS: TOTAL PROTEIN 6.9 GM/DL (6.4-8.2)
[2021-09-14 23:08] LABS: BILIRUBIN,TOTAL 0.2 MG/DL (0.1-1.0)
[2021-09-14 23:09] LABS: CREATININE SERUM 0.77 MG/DL (0.60-1.30)
[2021-09-14 23:10] LABS: EOSINOPHILS % (MANUAL) 1 %; HYPOCHROMASIA SLIGHT; LYMPHOCYTES % (MANUAL) 34 %; MICROCYTOSIS SLIGHT; MONOCYTES % (MANUAL) 4 %; NEUTROPHILS % (MANUAL) 61 %
[2021-09-15] MEDS ORDERED: HOLD METFORMIN - RECEIVED CONTRAST 20 ML VIAL IV SCH
[2021-09-15] MEDS ORDERED: IOHEXOL 350 MG/ML 100 ML (OMNIPAQUE 350) VIAL IV ONE
[2021-09-15] MEDS ORDERED: NS 100 ML (IVPB) BAG IV ONE
--- NOTE | 2021-09-15 01:28 | ED GI ---
General Chief Complaint: Rect Problems Stated Complaint: RECTAL BLEEDING Nursing Triage Note: TO ED VIA POV AND AMBULATORY TO ROOM 6 WITH C/O RECTAL BLEEDING. Source of Information: Patient Allergies and Home Medications Allergies Coded Allergies: diclofenac (Verified Allergy, Severe, BURNING, 08/06/14) ondansetron HCl (Verified Allergy, Severe, 11/03/11) INTERACTS WITH OTHER MEDS risperidone (Verified Allergy, Severe, 11/03/11) meloxicam (Verified Allergy, Intermediate, 11/03/11) COVID-19 vaccine, mRNA, [id number], (Verified Allergy, Mild, Rash, 05/31/20) Rash and itching of the left arm pseudoephedrine (Unverified Allergy, Mild, 12/20/08) tramadol (Unverified Allergy, Mild, 12/20/08) Pertussis Vaccines (Verified Allergy, Unknown, 09/14/21) albuterol (Unverified Adverse Reaction, Unknown, tachycardia, 08/06/14) Uncoded Allergies: NSA (Allergy, Intermediate, 11/03/11) Patient Home Medication List Albuterol Sulfate (Proventil Hfa) 6.7 Gm Hfa.aer.ad, 2 PUFF INH Q6H PRN for SHORTNESS OF BREATH, (Reported) Entered as Reported by: GREY GORMAN on 10/25/20 120 Alprazolam (Xanax) 0.5 Mg Tablet, 0.5 MG PO BID PRN for ANXIETY Prescribed by: JALEN ONEAL on 11/16/20 1628 Apixaban (Eliquis) 5 Mg Tablet, 5 MG PO BID, (Reported) Entered as Reported by: GREY GORMAN on 10/25/20 1205 Buspirone HCl (Buspirone HCl) 10 Mg Tablet, 30 MG PO DAILY, (Reported) Entered as Reported by: GREY GORMAN on 10/25/20 1205 Buspirone HCl (Buspirone HCl) 10 Mg Tablet, 20 MG PO HS, (Reported) Entered as Reported by: GREY GORMAN on 10/25/20 1205 Cariprazine Hydrochloride (Vraylar) 4.5 Mg Capsule, 4.5 MG PO DAILY, (Reported) Entered as Reported by: GREY GORMAN on 10/25/20 1205 Cetirizine HCl (Cetirizine HCl) 10 Mg Tablet, 10 MG PO DAILY, (Reported) Entered as Reported by: GREY GORMAN on 10/25/201204 Cyclobenzaprine HCl (Cyclobenzaprine HCl) 10 Mg Tablet, 10 MG PO TID PRN for MUSCLE SPASMS, (Reported) Entered as Reported by: GREY GORMAN on 10/25/201204 Diltiazem HCl (Diltiazem 24Hr ER) 120 Mg Cap.er.24h, 120 MG PO DAILY, (Reported) Entered as Reported by: GREY GORMAN on 10/25/201204 Exenatide Microspheres (Bydureon Bcise) 2 Mg/0.85 Ml Auto.injct, 2 MG SQ THUR, (Reported) Entered as Reported by: GREY GORMAN on 10/25/201204 Glimepiride (Glimepiride) 2 Mg Tablet, 2 MG PO DAILY, (Reported) Entered as Reported by: GREY GORMAN on 10/25/201204 Hydroxyzine HCl (Hydroxyzine HCl) 10 Mg Tablet, 5-10 MG PO DAILY PRN for ANXIETY, (Reported) Entered as Reported by: GREY GORMAN on 10/25/201204 Metformin HCl (Metformin HCl ER) 500 Mg Tab.er.24h, 1,000 MG PO BID, (Reported) Entered as Reported by: GREY GORMAN on 10/25/201204 Ondansetron HCl (Ondansetron HCl) 4 Mg Tablet, 4 MG PO Q8H PRN for NAUSEA/VOMITING-1ST LINE, (Reported) Entered as Reported by: GREY GORMAN on 10/25/201204 Pantoprazole Sodium (Pantoprazole Sodium) 40 Mg Tablet.dr, 40 MG PO BID, (Reported) Entered as Reported by: GREY GORMAN on 10/25/201204 Pedi Mv No.79/Ferrous Fumarate (Flintstones with Iron Tab Chew) 18 Mg Tab.chew, 18 MG PO DAILY, (Reported) Entered as Reported by: GREY GORMAN on 10/25/201204 Pravastatin Sodium (Pravastatin Sodium) 20 Mg Tablet, 20 MG PO HS, (Reported) Entered as Reported by: GERY GORMAN on 9/16/21 1205 Propranolol HCl (Propranolol HCl) 20 Mg Tablet, 20 MG PO BID, (Reported) Entered as Reported by: GREY GORMAN on 10/25/20 1205 Sertraline HCl (Zoloft) 100 Mg Tablet, 100 MG PO DAILY, (Reported) Entered as Reported by: RITO HADLEY on 12/06/20 0827 Sumatriptan Succinate (Sumatriptan Succinate) 100 Mg Tablet, 100 MG PO UD PRN for MIGRAINE, (Reported) Entered as Reported by: GREY GORMAN on 10/25/20 1205 Past Wnswjst-Jqprsm-Ynhnow Hx Immunizations Up To Date First/Initial COVID19 Vaccinat: APRIL 2020 Second COVID19 Vaccination Edwin: MAY 2020 Third COVID19 Vaccination Date: HAS HAD 2 VACCINES PLUS BOOSTER Past Medical History Surgery/Hospitalization HX: CARDIAC ABLATION AGE 25 FOR SVT IN 2005, C-SECTIONS, OVARIAN CYST REMOVED 10/2009, CARDIOVERSION FOR A FLUTTER IN NOV 2020 Surgeries: Yes (c-sections; ovarian cyst) Cardiac, Section Respiratory: Yes (ALLERGY INDUCED ASTHMA) Asthma, COPD Cardiac: Yes (ATRIAL FLUTTER DX 09/14/20; HX OF CARDIAC ABLATION AGE 25 FOR SVT) Atrial Fibrillation, Hypertension, Irregular Heartbeat Neurological: Yes Headaches /Migraines Reproductive Disorders: Yes (OVARIAN CYSTS (removed 2009)) Sexually Transmitted Disease: No Genitourinary: No Gastrointestinal: Yes (ACUTE PANCREATITIS/ADMITTED 12/24/09, 12/28/09 & 01/04/10) Pancreatitis Musculoskeletal: Yes Chronic Back Pain Endocrine: Yes (OBESITY) Diabetes, Insulin dep HEENT: No Cancer: No Psychosocial: Yes (BI-POLAR, PERSONALITY DISORDER; POST TRAMATIC STRESS DISORDER) Anxiety, PTSD, Bipolar, Personality Disorder, Depression Integumentary: No Blood Disorders: No Family Medical History No Pertinent Family Hx Physical Exam Vital Signs Vital Signs - First Documented 09/14/21 22:06 Temp 37.0 Pulse 90 Resp 18 B/P (MAP) 118/78 (91) Pulse Ox 96 O2 Delivery Room Air Capillary Refill : Less Than 3 Seconds Height/Weight/BMI Height: 5'7" Weight: 279lbs. oz. 126.123520ur; 44.00 BMI Method:Stated Progress/Results/Core Measures Results/Orders Lab Results Laboratory Tests Test 09/14/21 22:35 Range/Units White Blood Count 16.6 H 4.3-11.0 10^3/uL Red Blood Count 5.81 H 3.80-5.11 10^6/uL Hemoglobin 14.8 11.5-16.0 g/dL Hematocrit 46 35-52 % Mean Corpuscular Volume 80 80-99 fL Mean Corpuscular Hemoglobin 26 25-34 pg Mean Corpuscular Hemoglobin Concent 32 32-36 g/dL Red Cell Distribution Width 19.0 H 10.0-14.5 % Platelet Count 416 H 130-400 10^3/uL Mean Platelet Volume 9.3 9.0-12.2 fL Immature Granulocyte % (Auto) 0 % Neutrophils (%) (Auto) 59 42-75 % Lymphocytes (%) (Auto) 32 12-44 % Monocytes (%) (Auto) 8 0-12 % Eosinophils (%) (Auto) 1 0-10 % Basophils (%) (Auto) 1 0-10 % Neutrophils # (Auto) 9.8 H 1.8-7.8 10^3/uL Lymphocytes # (Auto) 5.2 H 1.0-4.0 10^3/uL Monocytes # (Auto) 1.3 H 0.0-1.0 10^3/uL Eosinophils # (Auto) 0.2 0.0-0.3 10^3/uL Basophils # (Auto) 0.1 0.0-0.1 10^3/uL Immature Granulocyte # (Auto) 0.1 0.0-0.1 10^3/uL Neutrophils % (Manual) 61 % Lymphocytes % (Manual) 34 % Monocytes % (Manual) 4 % Eosinophils % (Manual) 1 % Hypochromasia SLIGHT Microcytosis SLIGHT Prothrombin Time 14.7 12.2-14.7 SEC INR Comment 1.1 0.8-1.4 Activated Partial Thromboplast Time 51 H 24-35 SEC Sodium Level 138 135-145 MMOL/L Potassium Level 4.0 3.6-5.0 MMOL/L Chloride Level 103 98-107 MMOL/L Carbon Dioxide Level 21 21-32 MMOL/L Anion Gap 14 5-14 MMOL/L Blood Urea Nitrogen 12 7-18 MG/DL Creatinine 0.77 0.60-1.30 MG/DL Estimat Glomerular Filtration Rate 100 BUN/Creatinine Ratio 16 Glucose Level 99 70-105 MG/DL Calcium Level 9.6 8.5-10.1 MG/DL Corrected Calcium 9.5 8.5-10.1 MG/DL Total Bilirubin 0.2 0.1-1.0 MG/DL Aspartate Amino Transf (AST/SGOT) 16 5-34 U/L Alanine Aminotransferase (ALT/SGPT) 26 0-55 U/L Alkaline Phosphatase 57 40-136 U/L Total Protein 6.9 6.4-8.2 GM/DL Albumin 4.1 3.2-4.5 GM/DL Serum Test, Qualitative NEGATIVE NEGATIVE My Orders Orders - NEO MONTIEL DO Ed Iv/Invasive Line Start (09/14/21 22:19) Cbc With Automated Diff (09/14/21 22:19) Comprehensive Metabolic Panel (09/14/21 22:19) Hcg,Qualitative Serum (09/14/21 22:19) Protime With Inr (09/14/21 22:19) Partial Thromboplastin Time (09/14/21 22:19) Ed Iv/Invasive Line Start (09/14/21 22:19) Ns Iv 1000 Ml (Sodium Chloride 0.9%) (09/14/21 22:30) Ct Abdomen/Pelvis W (09/14/21 22:19) Manual Differential (09/14/21 22:35) Iohexol Injection (Omnipaque 350 Mg/Ml 1 (09/15/21 00:00) Received Contrast (Hold Metformin- Contr (09/15/21 00:00) Ns (Ivpb) (Sodium Chloride 0.9% Ivpb Bag (09/15/21 00:00) Medications Given in ED Current Medications Medications Dose Ordered Sig/Sabine Route Start Time Stop Time Status Last Admin Dose Admin Iohexol 100 ml ONCE ONCE IV 09/15/21 00:00 09/15/21 00:15 DC 09/15/21 00:23 100 ML Sodium Chloride 100 ml ONCE ONCE IV 09/15/21 00:00 09/15/21 00:15 DC 09/15/21 00:23 80 ML Vital Signs/I&O 09/14/21 22:06 Temp 37.0 Pulse 90 Resp 18 B/P (MAP) 118/78 (91) Pulse Ox 96 O2 Delivery Room Air Blood Pressure Mean: 91 Progress Progress Note : Progress Note NO RECTAL BLEEDING OR ANY OTHER SYMPTOMS DURING ER STAY MUCH DELAY IN OBTAINING CT REPORTS Diagnostic Imaging Comments CT ABDOMEN/PELVIS--PER [facility] VIA FAX AT 0120 -NO ACUTE PROCESS -GALLSTONE IN GALLBLADDER NECK WITHOUT OBSTRUCTION -OTHER CHRONIC FINDINGS. Reviewed: Reviewed by Me Departure Impression Primary Impression: Hemorrhoids Additional Impression: Anal fissure Disposition: HOME, SELF-CARE Condition: Stable Departure-Patient Inst. Decision time for Depature: 01:35 Referrals: [facility] (PCP/Family) Primary Care Physician Patient Instructions: Anal Fissure, Adult ED, How to Do a Sitz Bath, Hemorrhoids ED Add. Discharge Instructions: TAKE MIRALAX DAILY AVOID CONSTIPATION AND AVOID STRAINING WITH BM'S CONTINUE YOUR OTHER MEDICATIONS PRESCRIBED FOLLOW UP WITH YOUR DR IN 3-4 DAYS IF NO BETTER, RETURN TO ER IF WORSE All discharge instructions reviewed with patient and/or family. Voiced understanding. Scripts Hydrocortisone Acetate (Proctocort) 30 Mg Supp.rect 30 MG RC PRN, #10 SUPP.RECT Prov: NEO MONTIEL DO 09/15/21 Hydrocortisone (Proctocort) 1 % Cream..g. 28.4 GM TP BID, #1 TUBE Prov: NEO MONTIEL DO 09/15/21 NEO MONTIEL DO Sep 15, 2021 01:28
[2021-09-15] MEDS ORDERED: HYDR30SU6 RC (01:38)
[2021-09-15] MEDS ORDERED: HYDR28.336 TP (01:38)
--- NOTE | 2021-09-15 06:47 | Diagnostic Imaging Report ---
PROCEDURE: CT abdomen and pelvis with contrast. TECHNIQUE: Multiple contiguous axial images were obtained through the abdomen and pelvis after administration of intravenous contrast. Auto Exposure Controls were utilized during the CT exam to meet ALARA standards for radiation dose reduction. All CT scans use one or more of the following dose optimizing techniques: automated exposure control, MA and/or KvP adjustment based on patient size and exam type or iterative reconstruction. INDICATION: Bloody stools. Pain. EXAMINATION: CT abdomen and pelvis with contrast 09/14/2021. FINDINGS: The lung bases appear clear. Postoperative changes noted in left upper quadrant with the spleen absent. A few residual splenules noted. Pancreas and adrenal glands appear unremarkable. Liver unremarkable. The gallbladder is contracted. There is a likely stone near the neck. No surrounding inflammatory change is seen. Mild irregularity along the lateral cortex of the right kidney likely due to prior infectious etiology. Kidneys otherwise normal. There is mild atherosclerotic disease. Appendix normal. IUD noted in the uterus. There are cystic changes in the left adnexa ovarian in nature. No free fluid, no free air. There is mild diverticular disease without evidence for diverticulitis. There are postoperative changes along the anterior abdominal wall. The osseous structures unremarkable. IMPRESSION: 1. Suspected stone towards the gallbladder neck without surrounding inflammatory change. If there is right upper quadrant pain, sonography could better characterize. 2. Postoperative changes as above with other incidental findings as noted. Findings agree with the preliminary report. Dictated by: Dictated on workstation # [id number]
== END 2021-09-15 02:05 | disposition home or self-care (01) ==
LOC: EDUNIT# 21:53 → ER 21:55
DX: K60.2 Anal fissure, unspecified (principal); K64.9 Unspecified hemorrhoids; E11.9 Type 2 diabetes mellitus without complications; E66.9 Obesity, unspecified; Z68.41 Body mass index [BMI] 40.0-44.9, adult; Z79.4 Long term (current) use of insulin
CPT/HCPCS: 36415; 74177; 80053; 84703; 85007; 85027; 85610; 85730

== ENCOUNTER 2021-09-19 05:34 | Outpatient (RCR) | payer MEDICARE, MEDICAID ==
[~2021-09-19] VITALS: Ht 170 cm; Wt 125.9 kg
[~2021-09-19 05:34] MED LIST changes: +HYDR28.336 TP; +HYDR30SU6 RC
[2021-09-19] MEDS ORDERED: MULT-1076 PO (10:53)
[2021-09-19] MEDS ORDERED: DABI150C5 PO (10:53)
[2021-09-19] MEDS ORDERED: [UNRECOGNIZED DRUG - CODE] IV (10:53)
[2021-09-19] MEDS ORDERED: FEXO1POW MC (10:53)
[2021-09-19] MEDS ORDERED: LISI2.5T13 PO (10:53)
[2021-09-19] MEDS ORDERED: BUDE10.2 IH (10:53)
[2021-09-19] MEDS ORDERED: TIOT18CA2 IH (10:53)
[2021-09-19] MEDS ORDERED: DULA4.5P SQ (10:53)
[2021-09-19] MEDS ORDERED: DAPA1TAB3 PO (10:53)
== END 2021-10-09 | disposition home or self-care (01) ==
LOC: PREOP 05:34
PROVIDERS: ATTEND Surgery
DX: Z01.818 Encounter for other preprocedural examination (principal)

== ENCOUNTER 2021-09-30 09:38 | Day surgery (SDC) | payer MEDICARE, MEDICAID ==
[~2021-09-30] VITALS: Ht 171.5 cm; Wt 125.9 kg
[~2021-09-30 09:38] MED LIST changes: +BUDE10.2 IH; +DABI150C5 PO; +DAPA1TAB3 PO; +DULA4.5P SQ; +FEXO1POW MC; +LISI2.5T13 PO; +MULT-1076 PO; +TIOT18CA2 IH; +[UNRECOGNIZED DRUG - CODE] IV
[2021-09-30] MEDS ORDERED: LACTATED RINGERS 1,000 ML IV STA (09:44)
[2021-09-30] MEDS ORDERED: HURRICAINE EXT TUBE (BENZOCAINE) XX PRN (09:45)
--- NOTE | 2021-09-30 09:51 | Progress Note-Pre Operative ---
Pre-Operative Progress Note Date of Available H&P: Sep 17, 2021 Date H&P Reviewed: Sep 30, 2021 Time H&P Reviewed: 09:49 History & Physical: H&P Reviewed, Patient Examed, No changes noted Pre-Operative Diagnosis: Gastric ulcer, rectal bleed ADELINA VICTORIA DO Sep 30, 2021 09:51
[2021-09-30 10:10] VITALS: BP 113/81
[2021-09-30] MEDS ORDERED: MIDAZOLAM 2 MG/2 ML (VERSED) VIAL ONE (10:57)
[2021-09-30] MEDS ORDERED: PROPOFOL INJECTION 50 ML IV ONE (10:57)
[2021-09-30] MEDS ORDERED: KETAMINE 50 MG/5 ML SYRINGE ONE (11:26)
[2021-09-30] MEDS ORDERED: proPOfol 200 MG/20 ML (DIPRIVAN) VIAL IV ONE (11:26)
[2021-09-30 11:51] VITALS: BP 110/66
--- NOTE | 2021-09-30 11:55 | Progress Note-Post Operative ---
Post-Operative Progess Note Surgeon (s)/Repair Operator (s) Surgeon ADELINA VICTORIA DO Repair Operator: JAZMINE Moreno Pre-Operative Diagnosis Gastric ulcer, rectal bleed Post-Operative Diagnosis Gastritis Hiatal hernia Polyps Diverticula int hemorrhoids Procedure & Operative Findings Date of Procedure 09/30/21 Procedure Performed/Findings EGD with bx Colonoscopy with snare polypectomy Colon with cold bx PROCEDURE NOTE: After informed consent was obtained, the patient was brought to the endoscopy suite, placed in bed in left lateral decubitus position. She was administered IV sedation by the TECHNICAL WRITER AND EDITOR who then monitored vitals the entire time, heart rate, blood pressure and pulse ox and the scope was inserted down the mouth through the esophagus into the stomach. Pushed past the antrum, where there was some mild inflammation, into the duodenum. Duodenum looked good. Pulled back and did a biopsy of the antrum, then retroflexed the scope, saw small sliding hiatal hernia, took a picture of this and then pulled the scope into the GE junction, took another picture of the hiatal hernia and then did a biopsy of the GE junction. Pushed the scope back into the stomach, suctioned all the air out of the stomach. At this point pulled the scope up the esophagus and out the mouth. Switched camera, switched gloves, went down below, started the colonoscopy. Pushed all the way in to about 140 cm to get all the way to cecum. Took a picture of the appendiceal orifice, noted the ileocecal valve and saw a very small polyp. Took a picture of the polyp and then elected to remove it with cold biopsy. Then slowly withdrew the scope, insufflating to look circumferentially at the huff starting in the cecum, up the ascending colon to the hepatic flexure, then down the transverse colon to the splenic flexure and into the descending colon. Found four polyps here, that I completely removed with snare polypectomy. Next, down in to the sigmoid where I found two more large polyps and removed these with snare as well. Finally into the rectum, retroflexed in the rectal vault, saw some minimal internal hemorrhoids and took a picture of them. The patient tolerated the procedure and she recovered in the endoscopy suite. Recommended for repeat colonoscopy in 3 years Anesthesia Type IV sedation by TECHNICAL WRITER AND EDITOR Estimated Blood Loss Estimated blood loss (mL): scant Specimens/Packing Specimens Removed antral bx body of stomach bx GE jxn bx cecal polyp desc colon polyp x 4 sigm polyp x 2 ADELINA VICTORIA DO Sep 30, 2021 11:55
[2021-09-30 11:56] VITALS: BP 117/81
[2021-09-30 12:00] VITALS: BP 117/81
--- NOTE | 2021-09-30 12:20 | Endoscopy Discharge Instruct ---
Endo Procedure/Findings Findings 1.: Gastritis 2.: Hiatal Hernia 3.: Polyp 4.: Diverticulosis, Internal Hemorrhoids Discharge Instructions - Activity: You might feel a little sleepy until tomorrow. This is due to the medicine you received to relax you. Until tomorrow, you should: NOT drive a car, operate machinery or power tools. NOT drink any alcoholic beverages. NOT make any important decisions or sign importortant papers. Do not return to work until tomorrow, unless otherwise instructed. Resume previous activities tomorrow. Diet: Start by taking liquids. If you tolerate liquids, advance to solid food. 1.: EGD in 3 years 2.: Colonscopy in 3 years Notify Physician - If you experience excessive bleeding, unusual abdominal pain, fever, or chest pain, contact your doctor immediately. ADELINA VICTORIA DO Sep 30, 2021 12:20
--- NOTE | 2021-09-30 12:25 | Anesthesia-General Post-Op ---
MAC Patient Condition Mental Status/LOC: Same as Preop Cardiovascular: Satisfactory Nausea/Vomiting: Absent Respiratory: Satisfactory Pain: Controlled Complications: Absent Post Op Complications Complications None Follow Up Care/Instructions Patient Instructions None needed. Anesthesiology Discharge Order Discharge Order Patient is doing well, no complaints, stable vital signs, no apparent adverse anesthesia problems. No complications reported per nursing. OPHELIA LÓPEZ CRNA Sep 30, 2021 12:25
[2021-09-30 12:48] VITALS: BP 117/81
== END 2021-09-30 12:50 | disposition home or self-care (01) ==
LOC: ENDO 09:38
PROVIDERS: ATTEND Surgery
DX: K29.51 Unspecified chronic gastritis with bleeding (principal); K44.9 Diaphragmatic hernia without obstruction or gangrene; D12.0 Benign neoplasm of cecum; Z79.899 Other long term (current) drug therapy; D12.4 Benign neoplasm of descending colon; K63.5 Polyp of colon; K20.91 Esophagitis, unspecified with bleeding; K57.31 Diverticulosis of large intestine without perforation or abscess with bleeding; K64.8 Other hemorrhoids; Z88.7 Allergy status to serum and vaccine; Z79.84 Long term (current) use of oral hypoglycemic drugs; E11.9 Type 2 diabetes mellitus without complications; F17.210 Nicotine dependence, cigarettes, uncomplicated; K21.9 Gastro-esophageal reflux disease without esophagitis; K80.20 Calculus of gallbladder without cholecystitis without obstruction; E66.01 Morbid (severe) obesity due to excess calories; Z68.41 Body mass index [BMI] 40.0-44.9, adult
CPT/HCPCS: 82947; 84703; 88305

== ENCOUNTER → 2021-10-16 | Outpatient (CLI) | payer MEDICARE, MEDICAID ==
[~2021-10-16] VITALS: Ht 171.5 cm; Wt 126.1 kg
== END | disposition home or self-care (01) ==
LOC: PREOP 05:28
PROVIDERS: ATTEND Surgery
DX: Z01.818 Encounter for other preprocedural examination (principal)

== ENCOUNTER 2021-10-23 07:05 | Day surgery (SDC) | payer MEDICARE, MEDICAID ==
[2021-10-23] VITALS (11 sets, daily range): BP systolic 109–141; BP diastolic 52–92
[~2021-10-23] VITALS: Ht 171 cm; Wt 126.1 kg
[2021-10-23] MEDS ORDERED: LIDOCAINE/EPI 2% 1:200,00 (XYLOCAINE) 20 ML VIAL ONE ×2 (07:22→08:49)
[2021-10-23] MEDS ORDERED: MIDAZOLAM 2 MG/2 ML (VERSED) VIAL ONE (07:34)
[2021-10-23] MEDS ORDERED: LIDOCAINE PF 2% 5 ML (XYLOCAINE) VIAL ONE (07:34)
[2021-10-23] MEDS ORDERED: fentaNYL INJ 100 MCG/2 ML AMP ONE (07:34)
[2021-10-23] MEDS ORDERED: ONDANSETRON 4 MG/2 ML (SDV) Z0FRAN ONE ×3 (07:34→10:58)
[2021-10-23] MEDS ORDERED: NEOSTIGMINE (BLOXIVERZ ) 1 MG/1ML 10 ML VIAL ONE (07:34)
[2021-10-23] MEDS ORDERED: ROCURONIUM 10 MG/ML 5 ML SYRINGE IV ONE ×2 (07:34→09:36)
[2021-10-23] MEDS ORDERED: proPOfol 200 MG/20 ML (DIPRIVAN) VIAL IV ONE (07:34)
[2021-10-23] MEDS ORDERED: GLYCOPYRROLATE 0.2 MG/ML (ROBINUL) 2 ML VIAL ONE (07:34)
[2021-10-23] MEDS ORDERED: ceFAZolin INJECTION 3,000 MG in NS (IVPB) 100 ML IV ONE (07:45)
[2021-10-23] MEDS: LACTATED RINGERS 1,000 ML IV PRN ×2 (07:58→09:00)
[2021-10-23] MEDS ORDERED: ONDANSETRON 4 MG/2 ML (SDV) Z0FRAN IV ONE (08:00)
[2021-10-23] MEDS ORDERED: FAMOTIDINE 20MG/2ML IV (PEPCID) IV ONE (08:00)
--- NOTE | 2021-10-23 08:19 | Progress Note-Pre Operative ---
Pre-Operative Progress Note Date of Available H&P: Oct 08, 2021 Date H&P Reviewed: Oct 23, 2021 Time H&P Reviewed: 08:14 History & Physical: H&P Reviewed, Patient Examed, No changes noted Pre-Operative Diagnosis: Cholelithiasis/Cholecystitis ADELINA VICTORIA DO Oct 23, 2021 08:19
[2021-10-23] MEDS ORDERED: HYDROmorphone 2 MG/ML VIAL (DILAUDID) ONE (09:47)
[2021-10-23] MEDS ORDERED: SEVOFLURANE (ULTANE) 15 ML INHAL SOLN ONE (10:07)
--- NOTE | 2021-10-23 10:11 | Progress Note-Post Operative ---
Post-Operative Progess Note Surgeon (s)/Lubrication Supervisor (s) Surgeon ADELINA VICTORIA DO Lubrication Supervisor: Edvin Pre-Operative Diagnosis Cholelithiasis/Cholecystitis Post-Operative Diagnosis Same plus extensive adhesions Procedure & Operative Findings Date of Procedure 10/23/21 Procedure Performed/Findings 1) Lap moody with IOC 2) Extensive GIANCARLO Anesthesia Type GET Estimated Blood Loss Estimated blood loss (mL): less than 10ml Specimens/Packing Specimens Removed GB and contents ADELINA VICTORIA DO Oct 23, 2021 10:11
[2021-10-23] MEDS ORDERED: ACHD5005 PO (10:13)
--- NOTE | 2021-10-23 10:14 | Discharge Inst-Surgical ---
Discharge Inst-Surgical Depart Medication/Instructions New, Converted or Re-Newed RX: Transmitted to Pharmacy Patient Instructions Follow up Appt: Make appointment for 1 week. [phone] Instructions: No lifting greater than 20 pounds. No strenuous activity. May shower in 24 hours, no tub bath or soaking. Use incentive spirometer at home as directed. No Smoking Skin/Wound Care: May remove bandages in am. You need to leave the Dermabond on incision it will fall off on it's own. Symptoms to Report: Appetite Changes, Extremity Discoloration, Numbness/Tingling, Swelling Increased, Bleeding Excessive, Eyesight Changes, Pain Increased, Urine Color Change, Constipation(Persistent), Fever over 101 degree F, Pain/Pressure in chest, Urinating Difficulty, Cough Up/Vomit Blood, Heart Beat Irreg/Pounding, Pain/Pressure in jaw, Cramps in feet or legs, Lightheadedness, Pain/Pressure in shoulder, Diarrhea(Persistent), Memory Changes Suddenly, Questions/Concerns, Weight gain consecutive days, Dizziness/Fainting, Nausea/Vomiting, Shortness of Breath, Weight gain over 2 pounds If questions or concerns contact your physician Or seek help at emergency department. Activity Activity as Tolerated: Yes Activity Instructions: Avoid Stress to Incision Driving Instructions: No Driving/Refer to Dr. Miranda Discharge Diet: Avoid Fatty Foods, Low Fat/Low Cholesterol If Any Problems/Questions/Issu: Contact Your Physician, Go to Emergency Room Skin/Wound Care Infection Signs and Symptoms: Increased Redness, Foul Odor of Wound, Increased Drainage, Skin Itchy or Has a Rash, Increased Swelling, Temperature Above 101 F Wound Care Comment: heating pad to shoulder or neck tonight for pain Bathing Instructions: Shower Stitches/Artemio/Dermabond Dis: Dermabond Ice Pack: Ice On and Off Site ADELINA VICOTRIA DO Oct 23, 2021 10:14
[2021-10-23] MEDS ORDERED: HYDROmorphone 2 MG/ML VIAL (DILAUDID) IV ONE (10:45)
[2021-10-23] MEDS ORDERED: morphine INJ 10 MG/ML 1ML (SYR OR VIAL) IVP ONE (10:45)
--- NOTE | 2021-10-23 12:34 | Anesthesia-General Post-Op ---
General Patient Condition Mental Status/LOC: Same as Preop Cardiovascular: Satisfactory Nausea/Vomiting: Absent Respiratory: Satisfactory Pain: Controlled Complications: Absent Post Op Complications Complications None Follow Up Care/Instructions Patient Instructions None needed. Anesthesia/Patient Condition Patient Condition Patient is doing well, no complaints, stable vital signs, no apparent adverse anesthesia problems. She is currently being discharged to home. No complications reported per nursing. GELACIO KEEN DO Oct 23, 2021 12:34
--- NOTE | 2021-10-23 13:21 | Diagnostic Imaging Report ---
INDICATION: Bloody stools. History of abdominal pain. Cholecystectomy. COMPARISON: CT dated 09/14/2021. TOTAL FLUOROSCOPY TIME: 10 seconds. TOTAL FLUOROSCOPY TIME: 48 seconds. FINDINGS: Multiple fluoroscopic and digital subtraction views of the right upper abdominal quadrant were obtained during laparoscopic cholangiogram. Images provided show contrast filling the intra and extrahepatic biliary ductal systems. There is no focal stricture. No large intraluminal filling defect is seen. Contrast empties into the small bowel, as expected. Please note, the interpreting radiologist was not present during the procedure. IMPRESSION: Fluoroscopic guidance provided during laparoscopic cholangiogram as above. Dictated by: Dictated on workstation # [id number]
--- NOTE | 2021-10-23 20:28 | OPERATIVE REPORT ---
DATE OF SERVICE: 10/23/2021 PREOPERATIVE DIAGNOSES: Cholelithiasis, cholecystitis. POSTOPERATIVE DIAGNOSES: 1. Cholelithiasis, cholecystitis. 2. Extensive adhesions. PROCEDURES: 1. Laparoscopic cholecystectomy, intraoperative cholangiogram. 2. Extensive lysis of adhesions. SURGEON: Adelina Camejo DO SENIOR ASIC DESIGN ENGINEER: Jacob Pardo DO. ANESTHESIA: General endotracheal tube. SPECIMEN: Gallbladder and contents. BLOOD LOSS: Scant. FLUIDS: Per anesthesia. POSTOPERATIVE CONDITION: Stable. INDICATION FOR PROCEDURE: The patient is a 41-year-old female who has pain and classic symptoms of cholelithiasis and cholecystitis. She had an EGD, which really did not show anything and wanted to get her gallbladder out. FINDINGS: The patient had extensive adhesions. It actually took over an hour just to get the adhesions down, so we could finally get to the gallbladder. This is way more time than normal for adhesions. There were also adhesions on the gallbladder, which indicates previous gallbladder attacks. Pictures were taken. PROCEDURE NOTE: After informed consent was obtained, the patient was brought to the operating room, placed on the operating table in supine position, sterilely prepped and draped in normal fashion. Local lidocaine was used to infiltrate the skin above the umbilicus. I made the incision with 11 blade, carried down through the skin and subcutaneous tissue, deepened down to subcutaneous tissue with Bovie electrocautery down to fascia, incised the fascia. I was then encountered mesh. Patient was not sure of the mesh covered here or not. So at this point, we then elected to try in the left upper quadrant, infiltrated the skin with local, make an incision with a #11 blade, carried down through the skin and subcutaneous tissue, then deepened down to subcutaneous tissue with Bovie electrocautery and the fascia. Fascia was then incised and spread the muscle apart, went to the posterior fascia. Unfortunately, after going through the posterior fascia, she had some adhesions here, able to carefully and gently break these down with some blunt dissection my finger, placed an 11 mm trocar port and then placed a camera and then used the camera to break down some adhesions going along the left pericolic gutter and able to finally get down and around, then get over and see the right side, placed 2 ports in the right mid abdomen. Using local lidocaine, 11 blade for stab incision and VersaStep system, all done under direct visualization, started taking down the adhesions in the midline, could see that the omentum was stuck on the abdominal wall, tenting up the transverse colon going up all the way out into the left upper quadrant. Carefully started taking these down, had actually placed another 5 mm port just below the umbilicus. This was below the mesh to help as I placed the 5 mm camera as well as then the LigaSure and then also to hold down the omentum to get out of the way, carefully started taking down all of these adhesions. Finally able to get these adhesions down after over an hour of lysis of adhesions and we were able to visualize the transverse colon the entire time. All of it looked good. We were not close to the transverse colon, there were no openings. Once this was down, I elected to place another 5 mm port just subxiphoid and to the right of the midline. This was so we could do the cholangiogram. We were able to grasp the gallbladder at the fundus and taken in superior direction and then start taking down the adhesions with a LigaSure as well as Bovie electrocautery, taking the gallbladder from superior direction and then able to grasp down Janet's pouch and pulled in inferolateral direction, started dissecting out cystic duct and cystic artery. Pushing the adhesions away as well as pushing the small intestine way. Once we had freed this up, able to get around the cystic duct as well as the cystic artery, placed 1 clip distally on the cystic duct and one distally and 2 proximally on the cystic artery. Cut chcf through the cystic duct with Metzenbaum scissors. Placed a cholangiogram catheter, shot a cholangiogram. Good spillage down the cystic duct into the common bile duct and down in the small intestine as well as up into common hepatic and right and left hepatic, removed the cholangiogram catheter, placed 2 clips proximally on the cystic duct and cut the cystic duct and cystic artery with Metzenbaum scissors and then removed the gallbladder from bed of liver with L-hook cautery. Once this was completely removed, placed a bag in the abdomen, placed the gallbladder in the bag and then removed this through the left upper quadrant incision and port, placed the port back in, copiously irrigated, looked around to suction out all the fluid. All of the intestine looked good. There was no bleeding from bed of liver, pictures were taken. At this point, I then removed all ports under direct visualization, allowed pneumoperitoneum to escape and closed the left upper quadrant incision with 0 Vicryl [id number] suture and then closed all incision with 4-0 undyed Monocryl subcuticular stitches. Area was cleaned and dried. Dermabond placed as well as Band-Aids. The patient tolerated the procedure. She was then transferred to recovery room in stable condition. Sponge, instrument and needle count correct at the end of the case. Dr. Pardo assisted in this case helping me to make incisions, close incisions, identify anatomy, hold anatomy out of the way. This lysis of adhesions was well out of the range of normal and therefore a separate procedure, extensive lysis of adhesions was performed. Job ID: [id number] DocumentID: [id number] Dictated Date: 10/23/2021 15:12:18 Community Liaison Date: 10/23/2021 20:28:06 Dictated By: ADELINA CAMEJO DO MTDSue
== END 2021-10-23 12:30 | disposition home or self-care (01) ==
LOC: SDC 07:05
PROVIDERS: ATTEND Surgery
DX: K80.10 Calculus of gallbladder with chronic cholecystitis without obstruction (principal); K66.0 Peritoneal adhesions (postprocedural) (postinfection); K44.9 Diaphragmatic hernia without obstruction or gangrene; D12.6 Benign neoplasm of colon, unspecified; K21.00 Gastro-esophageal reflux disease with esophagitis, without bleeding; K57.30 Diverticulosis of large intestine without perforation or abscess without bleeding; K64.0 First degree hemorrhoids; E66.01 Morbid (severe) obesity due to excess calories; Z68.41 Body mass index [BMI] 40.0-44.9, adult; F17.210 Nicotine dependence, cigarettes, uncomplicated; Z28.311 Partially vaccinated for COVID-19
CPT/HCPCS: 76000; 82947; 84703; 87081; 88304

== ENCOUNTER 2021-10-27 18:37 | Emergency (ER) | payer MEDICARE, MEDICAID ==
[~2021-10-27] VITALS: Ht 170.2 cm; Wt 119.7 kg
[2021-10-27 18:53] VITALS: BP 129/84
--- NOTE | 2021-10-27 19:11 | ED Integumentary General ---
General Chief Complaint: Post OP Complications/Pain Stated Complaint: POST OP WOUND DRAINING History of Present Illness Date Seen by Provider: Oct 27, 2021 Time Seen by Provider: 19:05 Initial Comments Patient states that she had her gallbladder out recently. Was seen at [facility] yesterday and started on Cephalexin for possible wound infection. Today she noticed what she reports as bloody pus like fluid coming out of it. Has 6 incisions but states that this is the only incision that is giving her problems. Denies fever. Has an appointment tomorrow with surgeon for wound check. Timing/Duration: week Severity: mild Possible Cause: other (recent surgery) Associated Symptoms: No fever; other (drainage) (FLORINA WIGGINS APRN) Allergies and Home Medications Allergies Coded Allergies: diclofenac (Verified Allergy, Severe, BURNING, 08/06/14) ondansetron HCl (Verified Allergy, Severe, 11/03/11) INTERACTS WITH OTHER MEDS risperidone (Verified Allergy, Severe, 11/03/11) meloxicam (Verified Allergy, Intermediate, 11/03/11) COVID-19 vaccine, mRNA, [id number], (Verified Allergy, Mild, Rash, 05/31/20) Rash and itching of the left arm pseudoephedrine (Unverified Allergy, Mild, 12/20/08) tramadol (Unverified Allergy, Mild, 12/20/08) Pertussis Vaccines (Verified Allergy, Unknown, 09/14/21) Uncoded Allergies: NSA (Allergy, Intermediate, 11/03/11) Patient Home Medication List Home Medication List Reviewed: Yes (FLORINA WIGGINS APRN) Albuterol Sulfate (Proventil Hfa) 6.7 Gm Hfa.aer.ad, 2 PUFF INH Q6H PRN for SHORTNESS OF BREATH, (Reported) Entered as Reported by: GREY GORMAN on 10/25/20 1205 Budesonide/Formoterol Fumarate (Symbicort 160-4.5 Mcg Inhaler) 160 Mcg-4.5 Mcg/Actuation Hfa.aer.ad, 2 PUFF IH BID, (Reported) Entered as Reported by: CHU NESS on 09/19/21 1053 Buspirone HCl (Buspirone HCl) 10 Mg Tablet, 30 MG PO DAILY, (Reported) Entered as Reported by: GREY GORMAN on 10/25/20 1205 Cariprazine Hydrochloride (Vraylar) 4.5 Mg Capsule, 4.5 MG PO DAILY, (Reported) Entered as Reported by: GREY GORMAN on 10/25/20 1205 Cyclobenzaprine HCl (Cyclobenzaprine HCl) 10 Mg Tablet, 10 MG PO TID PRN for MUSCLE SPASMS, (Reported) Entered as Reported by: GREY GORMAN on 10/25/20 1205 Dabigatran Etexilate Mesylate (Pradaxa) 150 Mg Capsule, 150 MG PO BID, (Reported) Entered as Reported by: CHU NESS on 09/19/21 1053 Dapagliflozin/Metformin HCl (Xigduo Xr 5 mg-1,000 mg Tablet) 5 Mg-1,000 Mg Tab.bp.24h, 2 EACH PO DAILY, (Reported) Entered as Reported by: CHU NESS on 09/19/21 1053 Diltiazem HCl (Diltiazem 24Hr ER) 120 Mg Cap.er.24h, 120 MG PO DAILY, (Reported) Entered as Reported by: GREY GORMAN on 10/25/20 120 Dulaglutide (Trulicity) 4.5 Mg/0.5 Ml Pen.injctr, 4.5 MG SQ WEEK, (Reported) Entered as Reported by: CHU NESS on 09/19/21 1053 Fexofenadine HCl (Fexofenadine HCl) 100 % Powder, 1 GM MC DAILY, (Reported) Entered as Reported by: CHU NESS on 09/19/21 1053 Hydrocodone Bit/Acetaminophen (HYDROcodone/APAP 5 MG/325 MG TAB) 1 Tab Tab, 1 TAB PO Q8H PRN for PAIN-MODERATE (5-7) Prescribed by: ADELINA VICTORIA on 10/23/21 1013 Hydrocortisone (Proctocort) 1 % Cream..g., 28.4 GM TP BID Prescribed by: NEO MONTIEL on 09/15/21 0138 Lisinopril (Lisinopril) 2.5 Mg Tablet, 2.5 MG PO DAILY, (Reported) Entered as Reported by: CHU NESS on 09/19/21 1053 Multivitamin/Iron/Folic Acid (Multivitamin with Iron Tablet) 18 Mg Iron-400 Mcg Tablet, 1 EACH PO DAILY, (Reported) Entered as Reported by: CHU NESS on 09/19/21 1053 Ondansetron HCl (Ondansetron HCl) 4 Mg Tablet, 4 MG PO Q8H PRN for NAUSEA/VOMITING-1ST LINE, (Reported) Entered as Reported by: GREY GORMAN on 10/25/20 120 Pantoprazole Sodium (Pantoprazole Sodium) 40 Mg Tablet.dr, 40 MG PO BID, (Reported) Entered as Reported by: GREY GORMAN on 10/25/20 120 Pravastatin Sodium (Pravastatin Sodium) 20 Mg Tablet, 20 MG PO HS, (Reported) Entered as Reported by: GREY GORMAN on 10/25/20 120 Sertraline HCl (Zoloft) 100 Mg Tablet, 100 MG PO DAILY, (Reported) Entered as Reported by: RITO HADLEY on 12/06/20 0827 Sulfamethoxazole/Trimethoprim (Bactrim Ds Tablet) 800 Mg-160 Mg Tablet, 1 EACH PO BID Prescribed by: Florina Wiggins on 10/27/211940 Sumatriptan Succinate (Sumatriptan Succinate) 100 Mg Tablet, 100 MG PO UD PRN for MIGRAINE, (Reported) Entered as Reported by: GREY GORMAN on 10/25/20 120 Tiotropium [place] (Spiriva) 18 Mcg Aerp, 1 INH IH DAILY, (Reported) Entered as Reported by: CHU NESS on 09/19/21 105 Review of Systems Review of Systems Constitutional: No chills, No fever Respiratory: No cough, No short of breath Cardiovascular: No chest pain, No palpitations Gastrointestinal: abdominal pain (incisional); No jaundice, No nausea, No vomiting Skin: other (drainage to left upper quadrant with redness) (FLORINA WIGGINS APRN) All Other Systems Reviewed Negative Unless Noted: Yes (FLORINA WIGGINS APRN) Past Jqxbxco-Uunpak-Hthwiu Hx Immunizations Up To Date First/Initial COVID19 Vaccinat: 05-02-20 Second COVID19 Vaccination Edwin: 05-31-20 Third COVID19 Vaccination Date: 12-28-20 (FLORINA WIGGINS APRN) Seasonal Allergies Seasonal Allergies: Yes (FLORINA WIGGINS APRN) Past Medical History Surgery/Hospitalization HX: CARDIAC ABLATION AGE 25 FOR SVT IN 2005, C-SECTIONS, OVARIAN CYST REMOVED 10/2009, CARDIOVERSION FOR A FLUTTER IN NOV 2020 Surgeries: Yes (c-sections; ovarian cyst; CARDIAC ABLATIONS) Cardiac, Section, Hysterectomy, Tonsillectomy Respiratory: Yes (ALLERGY INDUCED ASTHMA, BRONCHITIS) Asthma, COPD Currently Using CPAP: No Currently Using BIPAP: No Cardiac: Yes (ATRIAL FLUTTER DX 09/14/20; HX OF CARDIAC ABLATION AGE 25 FOR SVT) Aneurysm, Atrial Fibrillation, High Cholesterol, Hypertension, Irregular Heartbeat Neurological: Yes Headaches /Migraines Reproductive Disorders: Yes (OVARIAN CYSTS (removed 2009)) Female Reproductive Disorders: Denies, Ovarian Cyst Sexually Transmitted Disease: No Genitourinary: No Gastrointestinal: Yes (ACUTE PANCREATITIS/ADMITTED 12/24/09, 12/28/09 & 01/04/10) Hemorrhoids, Pancreatitis Musculoskeletal: Yes Chronic Back Pain Endocrine: Yes (OBESITY) Diabetes, Insulin dep HEENT: No Loss of Vision: Denies Hearing Impairment: Denies Cancer: Yes (PRE-CANCEROUS CELLS) Cervical Did You Recieve Any Treatments: No What Type of Treatment Did You: Surgical Intervention Psychosocial: Yes (BI-POLAR; POST TRAMATIC STRESS DISORDER) Anxiety, PTSD, Bipolar, Depression Integumentary: No Blood Disorders: No Adverse Reaction/Blood Tranf: No (FLORINA WIGGINS APRN) Family Medical History Reviewed Nursing Family Hx (FLORINA WIGGINS APRN) No Pertinent Family Hx (FLORINA WIGGINS APRN) Physical Exam Vital Signs Vital Signs - First Documented 10/27/21 18:53 Temp 37.3 Pulse 85 Resp 18 B/P (MAP) 129/84 (99) Pulse Ox 96 O2 Delivery Room Air (DINESH,NEO K DO) Vital Signs Capillary Refill : (FLORINA WIGGINS APRN) General Appearance: WD/WN, no apparent distress Respiratory: chest non-tender, lungs clear, normal breath sounds Gastrointestinal: soft, other (incisions x 6 noted, incision to left upper abdomen with very mild erythema, no drainage appreciated, glue intact to incisions and well approximated.) Skin: normal color (FLORINA WIGGINS APRN) Progress/Results/Core Measures Results/Orders Medications Given in ED Current Medications Medications Dose Ordered Sig/Sabine Route Start Time Stop Time Status Last Admin Dose Admin Trimethoprim/ Sulfamethoxazole 1 ea ONCE ONCE PO 10/27/21 19:15 10/27/21 19:16 DC 10/27/21 19:32 1 EA (NEO MONTIEL DO) Vital Signs/I&O 10/27/21 18:53 Temp 37.3 Pulse 85 Resp 18 B/P (MAP) 129/84 (99) Pulse Ox 96 O2 Delivery Room Air (NEO MONTIEL DO) Progress Progress Note : Progress Note Surgical incisions overall look well. The left upper abdomen incision overall looks okay. No active drainage appreciated on exam. Mild erythema around the edges. Will go ahead and start on Bactrim at this time. Instructed may stop the Cephalexin. Has an appointment tomorrow with surgeon. Reasons to return to the ER were discussed with patient. (FLORINA WIGGINS APRN) Departure Impression Primary Impression: Encounter for postoperative wound check Disposition: HOME, SELF-CARE Condition: Stable Departure-Patient Inst. Decision time for Depature: 19:39 (FLORINA WIGGINS APRN) Referrals: [facility] [place] (PCP/Family) Primary Care Physician Patient Instructions: Wound Care (DC) Add. Discharge Instructions: 1. Home and rest. 2. Push fluids. 3. Alternate Tylenol/Ibuprofen as needed for pain. 4. Follow up with PCP as needed 5. Follow up with surgeon as scheduled tomorrow. 6. Return here if worse or concerns. 7. Bactrim as directed. Scripts Sulfamethoxazole/Trimethoprim (Bactrim Ds Tablet) 800 Mg-160 Mg Tablet 1 EACH PO BID, #14 TAB Prov: FLORINA WIGGINS APRN 10/27/21 ATTENDING PHYSICIAN NOTE: I WAS PHYSICALLY PRESENT ER PHYSICAN, BUT I WAS NOT INVOLVED IN ANY DECISION MAKING OR ANY CARE OF THIS PATIENT, AND I AM NOT COLLABORATING PHYSICIAN. (NEO MONTIEL DO) FLORINA WIGGINS APRN Oct 27, 2021 19:11 NEO MONTIEL DO Oct 28, 2021 03:37
[2021-10-27] MEDS ORDERED: TRIM/SULFAMETH 160/800 (SEPTRA DS) TAB PO ONE (19:15)
[2021-10-27] MEDS ORDERED: SULF-221 PO (19:41)
== END 2021-10-27 19:45 | disposition home or self-care (01) ==
LOC: EDUNIT# 18:37 → ER 18:40
DX: Z48.89 Encounter for other specified surgical aftercare (principal); E66.9 Obesity, unspecified; E11.9 Type 2 diabetes mellitus without complications; Z79.4 Long term (current) use of insulin
CPT/HCPCS: 99283

== ENCOUNTER 2021-11-07 20:33 | Outpatient (CLI) | payer OTHER, MEDICAID ==
[~2021-11-07 20:33] MED LIST changes: +SULF-221 PO
== END 2021-11-08 03:00 | disposition home or self-care (01) ==
LOC: SLEEP 20:33
PROVIDERS: ATTEND Nurse Practitioner Family
DX: G47.33 Obstructive sleep apnea (adult) (pediatric) (principal); G47.9 Sleep disorder, unspecified; G47.19 Other hypersomnia
CPT/HCPCS: 95810

== ENCOUNTER 2021-11-28 11:00 | Emergency (ER) | payer MEDICARE, MEDICAID ==
[~2021-11-28] VITALS: Ht 171 cm; Wt 117.5 kg
--- NOTE | 2021-11-28 11:06 | ED Chest Pain ---
General Chief Complaint: Chest Pain Stated Complaint: CHEST PAIN History of Present Illness Date Seen by Provider: Nov 28, 2021 Time Seen by Provider: 11:00 Initial Comments Patient presents to the emergency room today for intermittent chest pain that started around 745 this morning. States that she has a history of similar symptoms in the past when she went into a flutter and was cardioverted out of it. Concerned that she could be back in that rhythm. Has not been taking her blood thinners for about the past 6 weeks. States that she had her gallbladder removed and then had some infection in her surgical sites and needed to take the Ibuprofen. Last night was the first dose of blood thinner that she started taking again. Currently denies chest pain. Denies shortness of breath, nausea, vomiting. Denies exposure to COVID that she is aware of. Timing/Duration: intermittent Severity/Quality: mild, pressure Location: substernal Radiation: no radiation Activities at Onset: none Associated Symptoms: No abdominal pain, No back pain, No diaphoresis, No dizziness, No fever/chills, No headache, No heartburn, No nausea/vomiting, No shortness of breath, No syncope, No weakness Allergies and Home Medications Allergies Coded Allergies: diclofenac (Verified Allergy, Severe, BURNING, 08/06/14) ondansetron HCl (Verified Allergy, Severe, 11/03/11) INTERACTS WITH OTHER MEDS risperidone (Verified Allergy, Severe, 11/03/11) meloxicam (Verified Allergy, Intermediate, 11/03/11) COVID-19 vaccine, mRNA, [id number], (Verified Allergy, Mild, Rash, 05/31/20) Rash and itching of the left arm pseudoephedrine (Unverified Allergy, Mild, 12/20/08) tramadol (Unverified Allergy, Mild, 12/20/08) Pertussis Vaccines (Verified Allergy, Unknown, 09/14/21) Uncoded Allergies: NSA (Allergy, Intermediate, 11/03/11) Patient Home Medication List Home Medication List Reviewed: Yes Albuterol Sulfate (Proventil Hfa) 6.7 Gm Hfa.aer.ad, 2 PUFF INH Q6H PRN for SHORTNESS OF BREATH, (Reported) Entered as Reported by: GREY GORMAN on 10/25/20 1205 Budesonide/Formoterol Fumarate (Symbicort 160-4.5 Mcg Inhaler) 160 Mcg-4.5 Mcg/Actuation Hfa.aer.ad, 2 PUFF IH BID, (Reported) Entered as Reported by: CHU NESS on 09/19/21 105 Buspirone HCl (Buspirone HCl) 10 Mg Tablet, 30 MG PO DAILY, (Reported) Entered as Reported by: GREY GORMAN on 10/25/20 120 Cariprazine Hydrochloride (Vraylar) 4.5 Mg Capsule, 4.5 MG PO DAILY, (Reported) Entered as Reported by: GREY GORMAN on 10/25/20 120 Cyclobenzaprine HCl (Cyclobenzaprine HCl) 10 Mg Tablet, 10 MG PO TID PRN for MUSCLE SPASMS, (Reported) Entered as Reported by: GREY GORMAN on 10/25/20 120 Dabigatran Etexilate Mesylate (Pradaxa) 150 Mg Capsule, 150 MG PO BID, (Reported) Entered as Reported by: CHU NESS on 09/19/21 105 Dapagliflozin/Metformin HCl (Xigduo Xr 5 mg-1,000 mg Tablet) 5 Mg-1,000 Mg Tab.bp.24h, 2 EACH PO DAILY, (Reported) Entered as Reported by: CHU NESS on 09/19/21 105 Diltiazem HCl (Diltiazem 24Hr ER) 120 Mg Cap.er.24h, 120 MG PO DAILY, (Reported) Entered as Reported by: GREY GORMAN on 10/25/20 120 Dulaglutide (Trulicity) 4.5 Mg/0.5 Ml Pen.injctr, 4.5 MG SQ WEEK, (Reported) Entered as Reported by: CHU NESS on 09/19/21 105 Fexofenadine HCl (Fexofenadine HCl) 100 % Powder, 1 GM MC DAILY, (Reported) Entered as Reported by: CHU NESS on 09/19/21 105 Hydrocodone Bit/Acetaminophen (HYDROcodone/APAP 5 MG/325 MG TAB) 1 Tab Tab, 1 TAB PO Q8H PRN for PAIN-MODERATE (5-7) Prescribed by: ADELINA VICTORIA on 10/23/21 1013 Hydrocortisone (Proctocort) 1 % Cream..g., 28.4 GM TP BID Prescribed by: NEO MONTIEL on 09/15/21 0138 Lisinopril (Lisinopril) 2.5 Mg Tablet, 2.5 MG PO DAILY, (Reported) Entered as Reported by: CHU NESS on 09/19/21 105 Multivitamin/Iron/Folic Acid (Multivitamin with Iron Tablet) 18 Mg Iron-400 Mcg Tablet, 1 EACH PO DAILY, (Reported) Entered as Reported by: CHU NESS on 09/19/21 105 Ondansetron HCl (Ondansetron HCl) 4 Mg Tablet, 4 MG PO Q8H PRN for NAUSEA/VOMITING-1ST LINE, (Reported) Entered as Reported by: GREY GORMAN on 10/25/20 1205 Pantoprazole Sodium (Pantoprazole Sodium) 40 Mg Tablet.dr, 40 MG PO BID, (Reported) Entered as Reported by: GREY GORMAN on 10/25/20 120 Pravastatin Sodium (Pravastatin Sodium) 20 Mg Tablet, 20 MG PO HS, (Reported) Entered as Reported by: GREY GORMAN on 10/25/20 120 Sertraline HCl (Zoloft) 100 Mg Tablet, 100 MG PO DAILY, (Reported) Entered as Reported by: RITO HADLEY on 12/06/20 0827 Sulfamethoxazole/Trimethoprim (Bactrim Ds Tablet) 800 Mg-160 Mg Tablet, 1 EACH PO BID Prescribed by: Florina Wiggins on 10/27/21 194 Sumatriptan Succinate (Sumatriptan Succinate) 100 Mg Tablet, 100 MG PO UD PRN for MIGRAINE, (Reported) Entered as Reported by: GREY GORMAN on 10/25/20 120 Tiotropium [place] (Spiriva) 18 Mcg Aerp, 1 INH IH DAILY, (Reported) Entered as Reported by: CHU NESS on 09/19/21 105 Review of Systems Review of Systems Constitutional: No dizziness, No fever, No malaise, No weakness Respiratory: Denies Shortness of Air, Denies SOA With Exertion, Denies SOA at Rest, Denies Stridor, Denies Wheezing Cardiovascular: Chest Pain; Denies Edema, Denies Irregular Heart Rate, Denies Lightheadedness, Denies Palpitations, Denies Syncope Gastrointestinal: Denies Abdominal Pain, Denies Diarrhea, Denies Nausea, Denies Vomiting Musculoskeletal: No back pain, No joint pain Skin: No pruritus, No rash All Other Systems Reviewed Negative Unless Noted: Yes Past Yecodgw-Gbgjdw-Bmgjem Hx Immunizations Up To Date First/Initial COVID19 Vaccinat: 05-02-20 Second COVID19 Vaccination Edwin: 05-31-20 Third COVID19 Vaccination Date: 12-28-20 Seasonal Allergies Seasonal Allergies: Yes Past Medical History Surgery/Hospitalization HX: DM 2, COPD, CARDIAC ABLATION AGE 25 FOR SVT IN 2005, C-SECTIONS, OVARIAN CYST REMOVED 10/2009, CARDIOVERSION FOR A FLUTTER IN NOV 2020, SPLENECTOMY, TONSILECTOMY Surgeries: Yes (c-sections; ovarian cyst; CARDIAC ABLATIONS) Cardiac, Section, Hysterectomy, Tonsillectomy Respiratory: Yes (ALLERGY INDUCED ASTHMA, BRONCHITIS) Asthma, COPD Currently Using CPAP: No Currently Using BIPAP: No Cardiac: Yes (ATRIAL FLUTTER DX 09/14/20; HX OF CARDIAC ABLATION AGE 25 FOR SVT) Aneurysm, Atrial Fibrillation, High Cholesterol, Hypertension, Irregular Heartbeat Neurological: Yes Headaches /Migraines Reproductive Disorders: Yes (OVARIAN CYSTS (removed 2009)) Female Reproductive Disorders: Denies, Ovarian Cyst Sexually Transmitted Disease: No Genitourinary: No Gastrointestinal: Yes (ACUTE PANCREATITIS/ADMITTED 12/24/09, 12/28/09 & 01/04/10) Hemorrhoids, Pancreatitis Musculoskeletal: Yes Chronic Back Pain Endocrine: Yes (OBESITY) Diabetes, Insulin dep HEENT: No Loss of Vision: Denies Hearing Impairment: Denies Cancer: Yes (PRE-CANCEROUS CELLS) Cervical Did You Recieve Any Treatments: No What Type of Treatment Did You: Surgical Intervention Psychosocial: Yes (BI-POLAR; POST TRAMATIC STRESS DISORDER) Anxiety, PTSD, Bipolar, Depression Integumentary: No Blood Disorders: No Adverse Reaction/Blood Tranf: No Family Medical History Reviewed Nursing Family Hx No Pertinent Family Hx Physical Exam Vital Signs Vital Signs - First Documented 11/28/21 11:00 Temp 37.2 Pulse 83 Resp 14 B/P (MAP) 107/84 (92) Pulse Ox 98 Capillary Refill : Height, Weight, BMI Height: 5'7" Weight: 279lbs. oz. 126.061491nu; 41.00 BMI Method:Stated General Appearance: No Apparent Distress, WD/WN Neck: Full Range of Motion, Normal Inspection, Non Tender, Supple Respiratory: Chest Non Tender, Lungs Clear, Normal Breath Sounds, No Accessory Muscle Use, No Respiratory Distress Cardiovascular: Regular Rate, Rhythm, No Edema, Normal Peripheral Pulses Gastrointestinal: Normal Bowel Sounds, No Organomegaly, No Pulsatile Mass, Non Tender Extremity: Normal Capillary Refill, Normal Inspection, Normal Range of Motion Neurologic/Psychiatric: Alert, Oriented x3 Skin: Normal Color, Warm/Dry Progress/Results/Core Measures Results/Orders Lab Results Laboratory Tests Test 11/28/21 11:05 11/28/21 13:11 Range/Units White Blood Count 14.7 H 4.3-11.0 10^3/uL Red Blood Count 5.96 H 3.80-5.11 10^6/uL Hemoglobin 16.0 11.5-16.0 g/dL Hematocrit 49 35-52 % Mean Corpuscular Volume 83 80-99 fL Mean Corpuscular Hemoglobin 27 25-34 pg Mean Corpuscular Hemoglobin Concent 32 32-36 g/dL Red Cell Distribution Width 16.5 H 10.0-14.5 % Platelet Count 397 130-400 10^3/uL Mean Platelet Volume 9.3 9.0-12.2 fL Immature Granulocyte % (Auto) 0 % Neutrophils (%) (Auto) 56 42-75 % Lymphocytes (%) (Auto) 35 12-44 % Monocytes (%) (Auto) 7 0-12 % Eosinophils (%) (Auto) 2 0-10 % Basophils (%) (Auto) 1 0-10 % Neutrophils # (Auto) 8.2 H 1.8-7.8 10^3/uL Lymphocytes # (Auto) 5.1 H 1.0-4.0 10^3/uL Monocytes # (Auto) 1.1 H 0.0-1.0 10^3/uL Eosinophils # (Auto) 0.3 0.0-0.3 10^3/uL Basophils # (Auto) 0.1 0.0-0.1 10^3/uL Immature Granulocyte # (Auto) 0.0 0.0-0.1 10^3/uL Neutrophils % (Manual) 55 % Lymphocytes % (Manual) 36 % Monocytes % (Manual) 5 % Eosinophils % (Manual) 2 % Basophils % (Manual) 2 % Band Neutrophils 0 % Anisocytosis SLIGHT Prothrombin Time 15.0 H 12.2-14.7 SEC INR Comment 1.1 0.8-1.4 Activated Partial Thromboplast Time 57 H 24-35 SEC Sodium Level 138 135-145 MMOL/L Potassium Level 3.9 3.6-5.0 MMOL/L Chloride Level 105 98-107 MMOL/L Carbon Dioxide Level 24 21-32 MMOL/L Anion Gap 9 5-14 MMOL/L Blood Urea Nitrogen 11 7-18 MG/DL Creatinine 0.77 0.60-1.30 MG/DL Estimat Glomerular Filtration Rate 99 BUN/Creatinine Ratio 14 Glucose Level 109 H 70-105 MG/DL Calcium Level 9.4 8.5-10.1 MG/DL Corrected Calcium 9.2 8.5-10.1 MG/DL Magnesium Level 1.7 1.6-2.4 MG/DL Total Bilirubin 0.3 0.1-1.0 MG/DL Aspartate Amino Transf (AST/SGOT) 17 5-34 U/L Alanine Aminotransferase (ALT/SGPT) 31 0-55 U/L Alkaline Phosphatase 77 40-136 U/L Myoglobin 26.5 10.0-92.0 NG/ML Troponin I < 0.028 < 0.028 <0.028 NG/ML B-Type Natriuretic Peptide 10.0 <100.0 PG/ML Total Protein 7.3 6.4-8.2 GM/DL Albumin 4.2 3.2-4.5 GM/DL Lipase 33 8-78 U/L My Orders Orders - FLORINA WIGGINS E IRA Cbc With Automated Diff (11/28/21 11:06) Magnesium (11/28/21 11:06) Chest 1 View, Ap/Pa Only (11/28/21 11:06) Comprehensive Metabolic Panel (11/28/21 11:06) Myoglobin Serum (11/28/21 11:06) Protime With Inr (11/28/21 11:06) Partial Thromboplastin Time (11/28/21 11:06) O2 (11/28/21 11:06) Monitor-Rhythm Ecg Trace Only (11/28/21 11:06) Lipid Panel (11/29/21 06:00) Ed Iv/Invasive Line Start (11/28/21 11:06) Lipase (11/28/21 11:06) Bnp [place] (11/28/21 11:06) Troponin I [place] (11/28/21 11:06) Aspirin Chewable Tablet (Baby Aspirin Ch (11/28/21 11:15) Manual Differential (11/28/21 11:05) Troponin I [place] (11/28/21 12:19) Medications Given in ED Current Medications Medications Dose Ordered Sig/Sabine Route Start Time Stop Time Status Last Admin Dose Admin Aspirin 324 mg ONCE ONCE PO 11/28/21 11:15 11/28/21 11:16 DC 11/28/21 11:23 324 MG Vital Signs/I&O 11/28/21 11:00 Temp 37.2 Pulse 83 Resp 14 B/P (MAP) 107/84 (92) Pulse Ox 98 Progress Progress Note : Progress Note Patient arrives to the department with intermittent chest pain since around 745 this morning. Denies pain currently. Has a history of atrial flutter in the past. Will obtain labs and imaging and determine further plan of care from there. 1220: Went and spoke to patient in regards to current labs and XR. Reports that she is feeling a little better at this time. Instructed that we will repeat Troponin now. As long as that stays negative then we will discharge her home to follow up with PCP/lamina searcher. 1347: Spoke to patient in regards to repeat troponin and remaining negative. Discharge instructions reviewed with patient along with reasons to return to the ER. Continues to deny chest pain at discharge. Initial ECG Impression Date: Nov 28, 2021 Initial ECG Impression Time: 11:09 Initial ECG Rate: 77 Initial ECG Rhythm: Normal Sinus Initial ECG Intervals: Normal Initial ECG Impression: 1st Degree AV Block Comment reviewed with Dr. Nieves Departure Impression Primary Impression: Chest pain Qualified Codes: R07.9 - Chest pain, unspecified Disposition: 01 HOME, SELF-CARE Condition: Stable Departure-Patient Inst. Decision time for Depature: 13:51 Referrals: [facility] (PCP/Family) Primary Care Physician Patient Instructions: Chest Pain That Is Not Caused by the Heart (DC) Add. Discharge Instructions: 1. Home and rest. 2. Push fluids. 3. Alternate Tylenol/Ibuprofen as needed for pain. 4. Follow up with PCP as needed. 5. Return here if worse or concerns. All discharge instructions reviewed with patient and/or family. Voiced understanding. FLORINA WIGGINS APRN Nov 28, 2021 11:06
[2021-11-28] MEDS ORDERED: ASPIRIN 81 MG CHEW (CHILDREN'S ASA) PO ONE (11:15)
[2021-11-28 11:23] LABS: BASOPHILS # (AUTO) 0.1 10^3/uL (0.0-0.1); BASOPHILS % (AUTO) 1 % (0-10); EOSINOPHILS # (AUTO) 0.3 10^3/uL (0.0-0.3); EOSINOPHILS % (AUTO) 2 % (0-10); HEMATOCRIT 49 % (35-52); LYMPHOCYTES # (AUTO) 5.1 10^3/uL (1.0-4.0); LYMPHOCYTES % (AUTO) 35 % (12-44); MEAN CORPUSCULAR HEMOGLOBIN 27 pg (25-34); MEAN CORPUSCULAR HGB CONC 32 g/dL (32-36); MEAN CORPUSCULAR VOLUME 83 fL (80-99); MEAN PLATELET VOLUME 9.3 fL (9.0-12.2); MONOCYTES # (AUTO) 1.1 10^3/uL (0.0-1.0); MONOCYTES % (AUTO) 7 % (0-12); NEUTROPHILS # (AUTO) 8.2 10^3/uL (1.8-7.8); NEUTROPHILS % (AUTO) 56 % (42-75); PLATELET COUNT 397 10^3/uL (130-400); WHITE BLOOD COUNT 14.7 10^3/uL (4.3-11.0)
[2021-11-28 11:34] LABS: ALBUMIN 4.2 GM/DL (3.2-4.5); POTASSIUM 3.9 MMOL/L (3.6-5.0)
[2021-11-28 11:35] LABS: CALCIUM 9.4 MG/DL (8.5-10.1)
[2021-11-28 11:36] LABS: TOTAL PROTEIN 7.3 GM/DL (6.4-8.2)
[2021-11-28 11:38] LABS: BILIRUBIN,TOTAL 0.3 MG/DL (0.1-1.0)
[2021-11-28 11:40] LABS: CREATININE SERUM 0.77 MG/DL (0.60-1.30)
[2021-11-28 11:43] LABS: MAGNESIUM 1.7 MG/DL (1.6-2.4)
[2021-11-28 11:58] LABS: INR 1.1 (0.8-1.4)
--- NOTE | 2021-11-28 12:00 | Diagnostic Imaging Report ---
EXAMINATION: Chest 1 view HISTORY: Chest pain COMPARISON: 01/26/2021 FINDINGS: Heart size and pulmonary vasculature are normal. The lungs are clear without consolidation, pleural effusion, or pneumothorax. The osseous structures are intact. IMPRESSION: 1. No acute radiographic abnormality in the chest. Dictated by: Dictated on workstation # [id number]
[2021-11-28 12:03] LABS: ANISOCYTOSIS SLIGHT; BAND NEUTROPHILS 0 %; BASOPHILS % (MANUAL) 2 %; EOSINOPHILS % (MANUAL) 2 %; LYMPHOCYTES % (MANUAL) 36 %; MONOCYTES % (MANUAL) 5 %; NEUTROPHILS % (MANUAL) 55 %
[2021-11-28 14:05] VITALS: BP 107/80
== END 2021-11-28 14:11 | disposition home or self-care (01) ==
LOC: EDUNIT# 11:00 → ER 11:01
DX: R07.9 Chest pain, unspecified (principal); E11.9 Type 2 diabetes mellitus without complications; E66.9 Obesity, unspecified; Z68.42 Body mass index [BMI] 45.0-49.9, adult; Z79.4 Long term (current) use of insulin
CPT/HCPCS: 36415; 71045; 80053; 83690; 83735; 83874; 83880; 84484; 85007; 85027; 85610; 85730; 93005; 93041

== ENCOUNTER 2022-03-17 17:55 | Emergency (ER) | payer MEDICARE, MEDICAID ==
[~2022-03-17] VITALS: Ht 170.1 cm; Wt 117.9 kg
--- NOTE | 2022-03-17 18:11 | ED Chest Pain ---
General Chief Complaint: Chest Pain Stated Complaint: CHEST PAIN/INDIGESTION Source: patient Exam Limitations: no limitations History of Present Illness Date Seen by Provider: Mar 17, 2022 Time Seen by Provider: 18:00 Initial Comments Patient is a 41-year-old female who presents to the emergency department for evaluation of chest pain that began 30 to 45 minutes ago. Patient states the pain is substernal. States it does not radiate. She endorses a history of SVT in the past. States she had an ablation done and has had no issues since that time. Patient denies any significant shortness of air, diaphoresis, or exertional intolerance. She denies any lower extremity edema. States the pain has improved from its onset. Allergies and Home Medications Allergies Coded Allergies: diclofenac (Verified Allergy, Severe, BURNING, 08/06/14) ondansetron HCl (Verified Allergy, Severe, 11/03/11) INTERACTS WITH OTHER MEDS risperidone (Verified Allergy, Severe, 11/03/11) meloxicam (Verified Allergy, Intermediate, 11/03/11) COVID-19 vaccine, mRNA, [id number], (Verified Allergy, Mild, Rash, 05/31/20) Rash and itching of the left arm pseudoephedrine (Unverified Allergy, Mild, 12/20/08) tramadol (Unverified Allergy, Mild, 12/20/08) Pertussis Vaccines (Verified Allergy, Unknown, 09/14/21) Uncoded Allergies: NSA (Allergy, Intermediate, 11/03/11) Patient Home Medication List Home Medication List Reviewed: Yes Albuterol Sulfate (Proventil Hfa) 6.7 Gm Hfa.aer.ad, 2 PUFF INH Q6H PRN for SHORTNESS OF BREATH, (Reported) Entered as Reported by: GREY GORMAN on 10/25/20 1205 Budesonide/Formoterol Fumarate (Symbicort 160-4.5 Mcg Inhaler) 160 Mcg-4.5 Mcg/Actuation Hfa.aer.ad, 2 PUFF IH BID, (Reported) Entered as Reported by: CHU NESS on 09/19/21 1053 Buspirone HCl (Buspirone HCl) 10 Mg Tablet, 30 MG PO DAILY, (Reported) Entered as Reported by: GREY GORMAN on 10/25/20 1205 Cariprazine Hydrochloride (Vraylar) 4.5 Mg Capsule, 4.5 MG PO DAILY, (Reported) Entered as Reported by: GREY GORMAN on 10/25/20 1205 Cyclobenzaprine HCl (Cyclobenzaprine HCl) 10 Mg Tablet, 10 MG PO TID PRN for MUSCLE SPASMS, (Reported) Entered as Reported by: GREY GORMAN on 10/25/20 1205 Dabigatran Etexilate Mesylate (Pradaxa) 150 Mg Capsule, 150 MG PO BID, (Reported) Entered as Reported by: CHU NESS on 09/19/21 105 Dapagliflozin/Metformin HCl (Xigduo Xr 5 mg-1,000 mg Tablet) 5 Mg-1,000 Mg Tab.b p.24h, 2 EACH PO DAILY, (Reported) Entered as Reported by: CHU NESS on 09/19/21 105 Diltiazem HCl (Diltiazem 24Hr ER) 120 Mg Cap.er.24h, 120 MG PO DAILY, (Reported) Entered as Reported by: GREY GORMAN on 10/25/20 120 Dulaglutide (Trulicity) 4.5 Mg/0.5 Ml Pen.injctr, 4.5 MG SQ WEEK, (Reported) Entered as Reported by: CHU NESS on 09/19/21 105 Fexofenadine HCl (Fexofenadine HCl) 100 % Powder, 1 GM MC DAILY, (Reported) Entered as Reported by: CHU NESS on 09/19/21 105 Hydrocodone Bit/Acetaminophen (HYDROcodone/APAP 5 MG/325 MG TAB) 1 Tab Tab, 1 TAB PO Q8H PRN for PAIN-MODERATE (5-7) Prescribed by: ADELINA VICTORIA on 10/23/21 1013 Hydrocortisone (Proctocort) 1 % Cream..g., 28.4 GM TP BID Prescribed by: NEO MONTIEL on 09/15/21 0138 Lisinopril (Lisinopril) 2.5 Mg Tablet, 2.5 MG PO DAILY, (Reported) Entered as Reported by: CHU NESS on 09/19/21 105 Multivitamin/Iron/Folic Acid (Multivitamin with Iron Tablet) 18 Mg Iron-400 Mcg Tablet, 1 EACH PO DAILY, (Reported) Entered as Reported by: CHU NESS on 09/19/21 1053 Ondansetron HCl (Ondansetron HCl) 4 Mg Tablet, 4 MG PO Q8H PRN for NAUSEA/VOMITING-1ST LINE, (Reported) Entered as Reported by: GREY GORMAN on 10/25/20 120 Pantoprazole Sodium (Pantoprazole Sodium) 40 Mg Tablet.dr, 40 MG PO BID, (Reported) Entered as Reported by: GREY GORMAN on 10/25/20 120 Pravastatin Sodium (Pravastatin Sodium) 20 Mg Tablet, 20 MG PO HS, (Reported) Entered as Reported by: GREY GORMAN on 10/25/20 120 Sertraline HCl (Zoloft) 100 Mg Tablet, 100 MG PO DAILY, (Reported) Entered as Reported by: RITO HADLEY on 12/06/20 0827 Sulfamethoxazole/Trimethoprim (Bactrim Ds Tablet) 800 Mg-160 Mg Tablet, 1 EACH PO BID Prescribed by: Florina Malave on 10/27/211940 Sumatriptan Succinate (Sumatriptan Succinate) 100 Mg Tablet, 100 MG PO UD PRN for MIGRAINE, (Reported) Entered as Reported by: GREY GORMAN on 10/25/20 120 Tiotropium [place] (Spiriva) 18 Mcg Aerp, 1 INH IH DAILY, (Reported) Entered as Reported by: CHU NESS on 09/19/21 105 Review of Systems Review of Systems Constitutional: no symptoms reported EENTM: No Symptoms Reported Respiratory: No Symptoms Reported Cardiovascular: See HPI, Chest Pain Gastrointestinal: No Symptoms Reported Genitourinary: No Symptoms Reported Musculoskeletal: no symptoms reported Skin: no symptoms reported Psychiatric/Neurological: No Symptoms Reported Endocrine: No Symptoms Reported Hematologic/Lymphatic: No Symptoms Reported Past Tkl[place]ye-Rheqop-Przzdl Hx Immunizations Up To Date First/Initial COVID19 Vaccinat: 05-02-20 Second COVID19 Vaccination Edwin: 05-31-20 Third COVID19 Vaccination Date: 12-28-20 Seasonal Allergies Seasonal Allergies: Yes Past Medical History Surgery/Hospitalization HX: DM 2, COPD, CARDIAC ABLATION AGE 25 FOR SVT IN 2005, C-SECTIONS, OVARIAN CYST REMOVED 10/2009, CARDIOVERSION FOR A FLUTTER IN NOV 2020, SPLENECTOMY, TONSILECTOMY Surgeries: Yes (c-sections; ovarian cyst; CARDIAC ABLATIONS) Cardiac, Section, Hysterectomy, Tonsillectomy Respiratory: Yes (ALLERGY INDUCED ASTHMA, BRONCHITIS) Asthma, COPD Currently Using CPAP: No Currently Using BIPAP: No Cardiac: Yes (ATRIAL FLUTTER DX 09/14/20; HX OF CARDIAC ABLATION AGE 25 FOR SVT) Aneurysm, Atrial Fibrillation, High Cholesterol, Hypertension, Irregular Heartbeat Neurological: Yes Headaches /Migraines Reproductive Disorders: Yes (OVARIAN CYSTS (removed 2009)) Female Reproductive Disorders: Denies, Ovarian Cyst Sexually Transmitted Disease: No Genitourinary: No Gastrointestinal: Yes (ACUTE PANCREATITIS/ADMITTED 12/24/09, 12/28/09 & 01/04) Hemorrhoids, Pancreatitis Musculoskeletal: Yes Chronic Back Pain Endocrine: Yes (OBESITY) Diabetes, Insulin dep HEENT: No Loss of Vision: Denies Hearing Impairment: Denies Cancer: Yes (PRE-CANCEROUS CELLS) Cervical Did You Recieve Any Treatments: No What Type of Treatment Did You: Surgical Intervention Psychosocial: Yes (BI-POLAR; POST TRAMATIC STRESS DISORDER) Anxiety, PTSD, Bipolar, Depression Integumentary: No Blood Disorders: No Adverse Reaction/Blood Tranf: No Family Medical History No Pertinent Family Hx Physical Exam Vital Signs Vital Signs - First Documented 03/17/22 18:01 Temp 37.0 Pulse 96 Resp 17 B/P (MAP) 138/95 (109) Pulse Ox 96 O2 Delivery Room Air Capillary Refill : Height, Weight, BMI Height: 5'7" Weight: 279lbs. oz. 126.720685bk; 40.00 BMI Method:Stated General Appearance: No Apparent Distress, WD/WN HEENT: PERRL/EOMI, TMs Normal, Normal ENT Inspection, Pharynx Normal Neck: Full Range of Motion, Normal Inspection, Non Tender Respiratory: Chest Non Tender, Lungs Clear, Normal Breath Sounds, No Accessory Muscle Use, No Respiratory Distress Cardiovascular: Regular Rate, Rhythm Gastrointestinal: Non Tender, Soft Neurologic/Psychiatric: Alert, Oriented x3, No Motor/Sensory Deficits, Normal Mood/Affect Skin: Normal Color, Warm/Dry Progress/Results/Core Measures Results/Orders Lab Results Laboratory Tests Test 03/17/22 18:10 03/17/22 20:06 Range/Units White Blood Count 12.3 H 4.3-11.0 10^3/uL Red Blood Count 5.84 H 3.80-5.11 10^6/uL Hemoglobin 16.6 H 11.5-16.0 g/dL Hematocrit 50 35-52 % Mean Corpuscular Volume 85 80-99 fL Mean Corpuscular Hemoglobin 28 25-34 pg Mean Corpuscular Hemoglobin Concent 34 32-36 g/dL Red Cell Distribution Width 14.8 H 10.0-14.5 % Platelet Count 385 130-400 10^3/uL Mean Platelet Volume 9.1 9.0-12.2 fL Immature Granulocyte % (Auto) 0 % Neutrophils (%) (Auto) 46 42-75 % Lymphocytes (%) (Auto) 43 12-44 % Monocytes (%) (Auto) 8 0-12 % Eosinophils (%) (Auto) 2 0-10 % Basophils (%) (Auto) 1 0-10 % Neutrophils # (Auto) 5.7 1.8-7.8 10^3/uL Lymphocytes # (Auto) 5.3 H 1.0-4.0 10^3/uL Monocytes # (Auto) 1.0 0.0-1.0 10^3/uL Eosinophils # (Auto) 0.2 0.0-0.3 10^3/uL Basophils # (Auto) 0.1 0.0-0.1 10^3/uL Immature Granulocyte # (Auto) 0.0 0.0-0.1 10^3/uL Prothrombin Time 13.7 12.2-14.7 SEC INR Comment 1.0 0.8-1.4 Activated Partial Thromboplast Time 45 H 24-35 SEC Sodium Level 141 135-145 MMOL/L Potassium Level 3.9 3.6-5.0 MMOL/L Chloride Level 107 98-107 MMOL/L Carbon Dioxide Level 22 21-32 MMOL/L Anion Gap 12 5-14 MMOL/L Blood Urea Nitrogen 9 7-18 MG/DL Creatinine 0.73 0.60-1.30 MG/DL Estimat Glomerular Filtration Rate 106 BUN/Creatinine Ratio 12 Glucose Level 107 H 70-105 MG/DL Calcium Level 9.0 8.5-10.1 MG/DL Corrected Calcium 9.1 8.5-10.1 MG/DL Magnesium Level 1.9 1.6-2.4 MG/DL Total Bilirubin 0.2 0.1-1.0 MG/DL Aspartate Amino Transf (AST/SGOT) 16 5-34 U/L Alanine Aminotransferase (ALT/SGPT) 27 0-55 U/L Alkaline Phosphatase 55 40-136 U/L Troponin I < 0.028 < 0.028 <0.028 NG/ML Total Protein 6.9 6.4-8.2 GM/DL Albumin 3.9 3.2-4.5 GM/DL My Orders Orders - ISAIAH DEL REAL 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 Cbc With Automated Diff (03/17/22 18:09) Magnesium (03/17/22 18:09) Chest 1 View, Ap/Pa Only (03/17/22 18:09) Ekg Tracing (03/17/22 18:09) Comprehensive Metabolic Panel (03/17/22 18:09) Protime With Inr (03/17/22 18:09) Partial Thromboplastin Time (03/17/22 18:09) O2 (03/17/22 18:09) Monitor-Rhythm Ecg Trace Only (03/17/22 18:09) Ed Iv/Invasive Line Start (03/17/22 18:09) Troponin I [place] (03/17/22 18:09) Aspirin Chewable Tablet (Baby Aspirin Ch (03/17/22 18:15) Troponin I [place] (03/17/22 20:15) Medications Given in ED Vital Signs/I&O 03/17/22 03/17/22 18:01 20:49 Temp 37.0 Pulse 96 87 Resp 17 20 B/P (MAP) 138/95 (109) 138/102 Pulse Ox 96 96 O2 Delivery Room Air Room Air Progress Progress Note : Progress Note Patient is nontoxic and well-hydrated on exam. Vital signs are reassuring. No adventitious lung sounds or increased work of breathing noted. Patient is awake alert and oriented answers all questions appropriately. She ambulated to the room without issue. Orders placed for chest pain work-up including CBC, CMP, troponin, coagulation studies, EKG, and chest x-ray. Patient was given a 324 mg dose of aspirin. CBC is notable for very mild leukocytosis as well as some hemoconcentration with mildly elevated hemoglobin. CMP is reassuring without any significant metabolic derangements. Troponin was negative initially as well as negative 3 hours after the onset of pain. Patient studies are reassuring without any marked abnormality. EKG reveals a first-degree heart block which is consistent with prior EKGs obtained at this facility. No obvious acute ischemic change noted. Chest x-ray reveals no acute abnormality although some pre-existing cardiomegaly is noted. No indication for further testing at this time. ACS seems unlikely etiology of symptoms. Discussed importance of close follow-up with cardiology. Return precautions for symptomology discussed. Patient verbalized understanding. EKG : EKG Time: 18:04 Rate: 85 Rhythm: Normal Sinus Intervals: OR (prolonged) ECG Impression: Nonspecific Changes, 1st Degree AV Block Departure Impression Primary Impression: Chest pain Qualified Codes: R07.9 - Chest pain, unspecified Disposition: 01 HOME, SELF-CARE Condition: Stable Departure-Patient Inst. Decision time for Depature: 20:35 Referrals: [facility] (PCP/Family) Primary Care Physician Patient Instructions: Chest Pain, Adult ED ISAIAH DEL REAL APRN Mar 17, 2022 18:11
[2022-03-17] MEDS ORDERED: ASPIRIN 81 MG CHEW (CHILDREN'S ASA) PO ONE (18:15)
[2022-03-17 18:22] LABS: BASOPHILS # (AUTO) 0.1 10^3/uL (0.0-0.1); BASOPHILS % (AUTO) 1 % (0-10); EOSINOPHILS # (AUTO) 0.2 10^3/uL (0.0-0.3); EOSINOPHILS % (AUTO) 2 % (0-10); HEMATOCRIT 50 % (35-52); HEMOGLOBIN 16.6 g/dL (11.5-16.0); LYMPHOCYTES # (AUTO) 5.3 10^3/uL (1.0-4.0); LYMPHOCYTES % (AUTO) 43 % (12-44); MEAN CORPUSCULAR HEMOGLOBIN 28 pg (25-34); MEAN CORPUSCULAR HGB CONC 34 g/dL (32-36); MEAN CORPUSCULAR VOLUME 85 fL (80-99); MEAN PLATELET VOLUME 9.1 fL (9.0-12.2); MONOCYTES % (AUTO) 8 % (0-12); NEUTROPHILS # (AUTO) 5.7 10^3/uL (1.8-7.8); NEUTROPHILS % (AUTO) 46 % (42-75); PLATELET COUNT 385 10^3/uL (130-400); WHITE BLOOD COUNT 12.3 10^3/uL (4.3-11.0)
--- NOTE | 2022-03-17 18:28 | Diagnostic Imaging Report ---
INDICATION: Chest pain. Comparison is made with prior examination of 11/28/2021. FINDINGS: There is cardiomegaly. Lungs are clear. There is no pleural effusion or pneumothorax. The mediastinum is unremarkable. IMPRESSION: No acute cardiopulmonary abnormality Cardiomegaly. Dictated by: Dictated on workstation # [id number]
[2022-03-17 18:34] LABS: PROTHROMBIN TIME PATIENT 13.7 SEC (12.2-14.7)
[2022-03-17 18:36] LABS: ALBUMIN 3.9 GM/DL (3.2-4.5); POTASSIUM 3.9 MMOL/L (3.6-5.0)
[2022-03-17 18:39] LABS: TOTAL PROTEIN 6.9 GM/DL (6.4-8.2)
[2022-03-17 18:40] LABS: BILIRUBIN,TOTAL 0.2 MG/DL (0.1-1.0)
[2022-03-17 18:42] LABS: CREATININE SERUM 0.73 MG/DL (0.60-1.30)
[2022-03-17 18:45] LABS: MAGNESIUM 1.9 MG/DL (1.6-2.4)
[2022-03-17 20:49] VITALS: BP 138/102
== END 2022-03-17 20:51 | disposition home or self-care (01) ==
LOC: EDUNIT# 17:55 → ER 17:57
DX: R07.9 Chest pain, unspecified (principal); E66.9 Obesity, unspecified; Z86.79 Personal history of other diseases of the circulatory system; Z68.41 Body mass index [BMI] 40.0-44.9, adult; Z88.6 Allergy status to analgesic agent
CPT/HCPCS: 36415; 71045; 80053; 83735; 84484; 85025; 85610; 85730; 93005; 93041

== ENCOUNTER 2022-07-12 17:23 | Emergency (ER) | payer MEDICARE, MEDICAID ==
[~2022-07-12] VITALS: Ht 172 cm; Wt 117.0 kg
[2022-07-12 17:40] LABS: BASOPHILS # (AUTO) 0.1 10^3/uL (0.0-0.1); BASOPHILS % (AUTO) 1 % (0-10); EOSINOPHILS # (AUTO) 0.1 10^3/uL (0.0-0.3); EOSINOPHILS % (AUTO) 1 % (0-10); HEMATOCRIT 47 % (35-52); HEMOGLOBIN 15.9 g/dL (11.5-16.0); LYMPHOCYTES # (AUTO) 5.4 10^3/uL (1.0-4.0); LYMPHOCYTES % (AUTO) 34 % (12-44); MEAN CORPUSCULAR HEMOGLOBIN 29 pg (25-34); MEAN CORPUSCULAR HGB CONC 34 g/dL (32-36); MEAN CORPUSCULAR VOLUME 87 fL (80-99); MONOCYTES # (AUTO) 1.1 10^3/uL (0.0-1.0); MONOCYTES % (AUTO) 7 % (0-12); NEUTROPHILS % (AUTO) 57 % (42-75); PLATELET COUNT 373 10^3/uL (130-400); WHITE BLOOD COUNT 15.8 10^3/uL (4.3-11.0)
--- NOTE | 2022-07-12 17:44 | ED Chest Pain ---
General Chief Complaint: Chest Pain Stated Complaint: CHEST PAIN Nursing Triage Note: PT AMB TO RM 7 PT STATES HAS INTERMITTENT CHEST PAIN FOR APPROX 1 HOUR. PT RATES 5/10 STATES DOES HAVE SOME DIZZINESS, SWEATING AND NAUSEA. PT HAS HX OF A-FIB. Source: patient Exam Limitations: no limitations (BRIGITTE PLASENCIA APRN) History of Present Illness Date Seen by Provider: Jul 12, 2022 Time Seen by Provider: 17:26 Initial Comments 41-year-old female presents to the ER with complaints of intermittent sharp stabbing left-sided chest pain starting around 4:15 PM. She also reports nausea and intermittent dizziness. She states she had 1 episode of sweating which has improved. She states she currently does not have any pain. She states that the chest pain is not related to exertion, states that sometimes it occurs when she is walking, states sometimes it occurs when she is resting. She denies fevers, cough, shortness of air. Past medical history includes type 2 diabetes, hypertension, hyperlipidemia, atrial flutter. She also has history of SVT, had an ablation in 2006. She currently smokes tobacco and uses marijuana. 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 (BRIGITTE PLASENCIA APRN) Allergies and Home Medications Allergies Coded Allergies: diclofenac (Verified Allergy, Severe, BURNING, 08/06/14) ondansetron HCl (Verified Allergy, Severe, 11/03/11) INTERACTS WITH OTHER MEDS risperidone (Verified Allergy, Severe, 11/03/11) meloxicam (Verified Allergy, Intermediate, 11/03/11) COVID-19 vaccine, mRNA, [id number], (Verified Allergy, Mild, Rash, 05/31/20) Rash and itching of the left arm pseudoephedrine (Unverified Allergy, Mild, 12/20/08) tramadol (Unverified Allergy, Mild, 12/20/08) Pertussis Vaccines (Verified Allergy, Unknown, 09/14/21) Uncoded Allergies: NSA (Allergy, Intermediate, 11/03/11) Patient Home Medication List Home Medication List Reviewed: Yes (BRIGITTE PLASENCIA APRN) Albuterol Sulfate (Proventil Hfa) 6.7 Gm Hfa.aer.ad, 2 PUFF INH Q6H PRN for SHORTNESS OF BREATH, (Reported) Entered as Reported by: GREY VITA on 10/25/20 1205 Budesonide/Formoterol Fumarate (Symbicort 160-4.5 Mcg Inhaler) 160 Mcg-4.5 Mcg/Actuation Hfa.aer.ad, 2 PUFF IH BID, (Reported) Entered as Reported by: CHU NESS on 09/19/21 105 Buspirone HCl (Buspirone HCl) 10 Mg Tablet, 30 MG PO DAILY, (Reported) Entered as Reported by: GREY GORMAN on 10/25/20 120 Cariprazine Hydrochloride (Vraylar) 4.5 Mg Capsule, 4.5 MG PO DAILY, (Reported) Entered as Reported by: GREY GORMAN on 10/25/20 120 Cyclobenzaprine HCl (Cyclobenzaprine HCl) 10 Mg Tablet, 10 MG PO TID PRN for MUSCLE SPASMS, (Reported) Entered as Reported by: GREY GORMAN on 10/25/20 120 Dabigatran Etexilate Mesylate (Pradaxa) 150 Mg Capsule, 150 MG PO BID, (Reported) Entered as Reported by: CHU NESS on 09/19/21 105 Dapagliflozin/Metformin HCl (Xigduo Xr 5 mg-1,000 mg Tablet) 5 Mg-1,000 Mg Tab.bp.24h, 2 EACH PO DAILY, (Reported) Entered as Reported by: CHU NESS on 09/19/21 105 Diltiazem HCl (Diltiazem 24Hr ER) 120 Mg Cap.er.24h, 120 MG PO DAILY, (Reported) Entered as Reported by: GREY GORMAN on 10/25/20 120 Dulaglutide (Trulicity) 4.5 Mg/0.5 Ml Pen.injctr, 4.5 MG SQ WEEK, (Reported) Entered as Reported by: CHU NESS on 09/19/21 105 Fexofenadine HCl (Fexofenadine HCl) 100 % Powder, 1 GM MC DAILY, (Reported) Entered as Reported by: CHU NESS on 09/19/21 105 Hydrocodone Bit/Acetaminophen (HYDROcodone/APAP 5 MG/325 MG TAB) 1 Tab Tab, 1 TAB PO Q8H PRN for PAIN-MODERATE (5-7) Prescribed by: ADELINA VICTORIA on 10/23/21 1013 Hydrocortisone (Proctocort) 1 % Cream..g., 28.4 GM TP BID Prescribed by: NEO MONTIEL on 09/15/21 0138 Lisinopril (Lisinopril) 2.5 Mg Tablet, 2.5 MG PO DAILY, (Reported) Entered as Reported by: CHU NESS on 09/19/21 1053 Multivitamin/Iron/Folic Acid (Multivitamin with Iron Tablet) 18 Mg Iron-400 Mcg Tablet, 1 EACH PO DAILY, (Reported) Entered as Reported by: CHU NESS on 09/19/21 1053 Ondansetron HCl (Ondansetron HCl) 4 Mg Tablet, 4 MG PO Q8H PRN for NAUSEA/VOMITING-1ST LINE, (Reported) Entered as Reported by: GREY GORMAN on 10/25/20 1205 Pantoprazole Sodium (Pantoprazole Sodium) 40 Mg Tablet.dr, 40 MG PO BID, (Reported) Entered as Reported by: GREY GORMAN on 10/25/20 1205 Pravastatin Sodium (Pravastatin Sodium) 20 Mg Tablet, 20 MG PO HS, (Reported) Entered as Reported by: GREY GORMAN on 10/25/20 1205 Sertraline HCl (Zoloft) 100 Mg Tablet, 100 MG PO DAILY, (Reported) Entered as Reported by: RITO HADLEY on 12/06/20 0827 Sulfamethoxazole/Trimethoprim (Bactrim Ds Tablet) 800 Mg-160 Mg Tablet, 1 EACH PO BID Prescribed by: Florina Malave on 10/27/21 194 Sumatriptan Succinate (Sumatriptan Succinate) 100 Mg Tablet, 100 MG PO UD PRN for MIGRAINE, (Reported) Entered as Reported by: GREY GORMAN on 10/25/20 1205 Tiotropium Counce (Spiriva) 18 Mcg Aerp, 1 INH IH DAILY, (Reported) Entered as Reported by: CHU NESS on 09/19/21 105 Review of Systems Review of Systems Constitutional: see HPI (BRIGITTE PLASENCIA DIRECTOR OF ENTERPRISE STRATEGY) Past Jvuznpo-Znihxe-Wfkwkf Hx Patient Social History Tobacco Use?: Yes Tobacco type used: Cigarettes Smoking Status: Current Everyday Smoker Substance use?: Yes Substance type: Marijuana Additional substance use comme: 6 YEARS FREE FROM METH Substance frequency: Daily Alcohol Use?: No Pt feels they are or have been: No (BRIGITTE PLASENCIA APRN) Immunizations Up To Date First/Initial COVID19 Vaccinat: 05-02-20 Second COVID19 Vaccination Edwin: 05-31-20 Third COVID19 Vaccination Date: 12-28-20 (BRIGITTE PLASENCIA APRN) Seasonal Allergies Seasonal Allergies: Yes (BRIGITTE PLASENCIA APRN) Past Medical History Surgery/Hospitalization HX: DM 2, COPD, CARDIAC ABLATION AGE 25 FOR SVT IN 2005, C-SECTIONS, OVARIAN CYST REMOVED 10/2009, CARDIOVERSION FOR A FLUTTER IN NOV 2020, SPLENECTOMY, TONSILECTOMY Surgeries: Yes (c-sections; ovarian cyst; CARDIAC ABLATIONS) Cardiac, Section, Hysterectomy, Tonsillectomy Respiratory: Yes (ALLERGY INDUCED ASTHMA, BRONCHITIS) Asthma, COPD Currently Using CPAP: No Currently Using BIPAP: No Cardiac: Yes (ATRIAL FLUTTER DX 09/14/20; HX OF CARDIAC ABLATION AGE 25 FOR SVT) Aneurysm, Atrial Fibrillation, High Cholesterol, Hypertension, Irregular Heartbeat Neurological: Yes Headaches /Migraines Reproductive Disorders: Yes (OVARIAN CYSTS (removed 2009)) Female Reproductive Disorders: Denies, Ovarian Cyst Sexually Transmitted Disease: No Genitourinary: No Gastrointestinal: Yes (ACUTE PANCREATITIS/ADMITTED 12/24/09, 12/28/09 & 01/04/10) Hemorrhoids, Pancreatitis Musculoskeletal: Yes Chronic Back Pain Endocrine: Yes (OBESITY) Diabetes, Insulin dep HEENT: No Loss of Vision: Denies Hearing Impairment: Denies Cancer: Yes (PRE-CANCEROUS CELLS) Cervical Did You Recieve Any Treatments: No What Type of Treatment Did You: Surgical Intervention Psychosocial: Yes (BI-POLAR; POST TRAMATIC STRESS DISORDER) Anxiety, PTSD, Bipolar, Depression Integumentary: No Blood Disorders: No Adverse Reaction/Blood Tranf: No (BRIGITTE PLASENCIA APRN) Family Medical History No Pertinent Family Hx (BRIGITTE PLASENCIA APRN) Physical Exam Vital Signs Vital Signs - First Documented 07/12/22 17:28 Temp 36.7 Pulse 84 Resp 16 B/P (MAP) 123/83 (96) Pulse Ox 95 (JOSE CARLOS BELLO MD) Vital Signs Capillary Refill : Less Than 3 Seconds (BRIGITTE PLASENCIA APRN) Height, Weight, BMI Height: 5'7" Weight: 279lbs. oz. 126.037864si; 39.00 BMI Method:Stated General Appearance: No Apparent Distress, WD/WN Neck: Normal Inspection, Supple Respiratory: Lungs Clear, Normal Breath Sounds, No Accessory Muscle Use, No Respiratory Distress, Other (Mild tenderness to palpation of left chest) Cardiovascular: Regular Rate, Rhythm, No Edema Extremity: Normal Inspection, Normal Range of Motion Neurologic/Psychiatric: Alert, Normal Mood/Affect Skin: Normal Color, Warm/Dry (BRIGITTE PLASENCIA APRN) Progress/Results/Core Measures Results/Orders Lab Results Laboratory Tests Test 07/12/22 17:30 07/12/22 19:10 Range/Units White Blood Count 15.8 H 4.3-11.0 10^3/uL Red Blood Count 5.45 H 3.80-5.11 10^6/uL Hemoglobin 15.9 11.5-16.0 g/dL Hematocrit 47 35-52 % Mean Corpuscular Volume 87 80-99 fL Mean Corpuscular Hemoglobin 29 25-34 pg Mean Corpuscular Hemoglobin Concent 34 32-36 g/dL Red Cell Distribution Width 14.0 10.0-14.5 % Platelet Count 373 130-400 10^3/uL Mean Platelet Volume 9.0 9.0-12.2 fL Immature Granulocyte % (Auto) 0 % Neutrophils (%) (Auto) 57 42-75 % Lymphocytes (%) (Auto) 34 12-44 % Monocytes (%) (Auto) 7 0-12 % Eosinophils (%) (Auto) 1 0-10 % Basophils (%) (Auto) 1 0-10 % Neutrophils # (Auto) 9.0 H 1.8-7.8 10^3/uL Lymphocytes # (Auto) 5.4 H 1.0-4.0 10^3/uL Monocytes # (Auto) 1.1 H 0.0-1.0 10^3/uL Eosinophils # (Auto) 0.1 0.0-0.3 10^3/uL Basophils # (Auto) 0.1 0.0-0.1 10^3/uL Immature Granulocyte # (Auto) 0.1 0.0-0.1 10^3/uL Neutrophils % (Manual) 58 % Lymphocytes % (Manual) 35 % Monocytes % (Manual) 6 % Eosinophils % (Manual) 1 % Blood Morphology Comment NORMAL Prothrombin Time 14.8 H 12.2-14.7 SEC INR Comment 1.1 0.8-1.4 Activated Partial Thromboplast Time 51 H 24-35 SEC Sodium Level 140 135-145 MMOL/L Potassium Level 3.6 3.6-5.0 MMOL/L Chloride Level 107 98-107 MMOL/L Carbon Dioxide Level 22 21-32 MMOL/L Anion Gap 11 5-14 MMOL/L Blood Urea Nitrogen 8 7-18 MG/DL Creatinine 0.97 0.60-1.30 MG/DL Estimat Glomerular Filtration Rate 75 BUN/Creatinine Ratio 8 Glucose Level 142 H 70-105 MG/DL Calcium Level 10.0 8.5-10.1 MG/DL Corrected Calcium 9.7 8.5-10.1 MG/DL Magnesium Level 1.6 1.6-2.4 MG/DL Total Bilirubin 0.2 0.1-1.0 MG/DL Aspartate Amino Transf (AST/SGOT) 15 5-34 U/L Alanine Aminotransferase (ALT/SGPT) 22 0-55 U/L Alkaline Phosphatase 52 40-136 U/L Troponin I < 0.028 < 0.028 <0.028 NG/ML Total Protein 7.3 6.4-8.2 GM/DL Albumin 4.4 3.2-4.5 GM/DL (JOSE CARLOS BELLO MD) My Orders Orders - JOSE CARLOS BELLO MD Ekg Tracing (07/12/22 17:26) (JOSE CARLOS BELLO MD) Vital Signs/I&O 07/12/22 07/12/22 17:28 20:00 Temp 36.7 36.7 Pulse 84 74 Resp 16 16 B/P (MAP) 123/83 (96) 112/82 Pulse Ox 95 96 (JOSE CARLOS BELLO MD) Blood Pressure Mean: 96 Progress Progress Note : Progress Note Patient seen and evaluated, resting comfortably in bed, no acute distress. Based on exam and symptoms, work-up initiated including CBC, CMP, troponin, magnesium, coags, chest x-ray, EKG. 1830 Labs and x-ray reviewed. CBC shows elevated WBC 15.8, this could be related to patient's tobacco use. CMP also normal, elevated blood glucose 142. Magnesium normal at 1.6. Troponin negative. PT slightly elevated 14.8. INR normal. APTT elevated 51. Chest x-ray reviewed. Negative for acute cardiopulmonary process. Will repeat a 3-hour troponin at 7:15pm. 1951 repeat troponin negative. Results discussed with patient. Her chest pain is atypical and is likely not related to her heart. Patient is comfortable discharge plan. Discharge instructions and return precautions provided. (BRIGITTE PLASENCIA APRN) Initial ECG Impression Date: Jul 12, 2022 Initial ECG Impression Time: 17:28 Initial ECG Rate: 84 Initial ECG Rhythm: Normal Sinus Initial ECG Intervals: NJ (307) Initial ECG Impression: 1st Degree AV Block Initial ECG Comparisson: Unchanged Comment First-degree block, this is not new. No Q waves, ST elevation, or T wave inversion. (BRIGITTE PLASENCIA APRN) Diagnostic Imaging Diagonstic Imaging: Xray Plain Films/CT/US/NM/MRI: chest Comments [facility], [place] NAME: ELAINE LEVIN [facility] REC#: [id number] PT STATUS: REG ER : 1980 PHYSICIAN: BRIGITTE PLASENCIA APRN ADMIT DATE: 07/12/22/ER Signed Date of Exam:07/12/22 CHEST 1 VIEW, AP/PA ONLY EXAMINATION: Chest radiograph, portable AP view. DATE: 07/12/2022 5:44 PM INDICATION: 41-year-old female, chest pain. COMPARISON: March 17, 2022. FINDINGS: Heart size and mediastinal contours are unchanged. There is no identified pneumothorax. There is no large pleural effusion. There is no identified interval focal airspace consolidation. IMPRESSION: No identified acute cardiopulmonary abnormality. Dictated by: Dictated on workstation # [id number] Dict: 07/12/221744 Trans: 07/12/221747 [facility] [id number] Interpreted by: GATO WIGGINS MD Electronically signed by: GATO WIGGINS MD 07/12/221747 (BRIGITTE PLASENCIA APRN) Departure Impression Primary Impression: Chest pain Qualified Codes: R07.9 - Chest pain, unspecified Disposition: 01 HOME, SELF-CARE Condition: Stable Departure-Patient Inst. Decision time for Depature: 19:53 (BRIGITTE PLASENCIA APRN) Referrals: [facility] [place] ([place]/Family) Primary Care Physician KALEB BOOTHE MD [facility] SYLVIE LANDIS MD Patient Instructions: Chest Pain That Is Not Caused by the Heart (DC) Add. Discharge Instructions: Establish care with Dr. Landis or Dr. Boothe. Call them on Thursday to schedule an appointment. Return for severe chest pain, shortness of air, or any other new, concerning, or worsening symptoms. All discharge instructions reviewed with patient and/or family. Voiced understanding. ATTENDING PHYSICIAN NOTE: I was physically present as attending physician in the emergency department during the care of this patient, but I was not directly involved in the decision making or delivery of care for this patient. (JOSE CARLOS BELLO MD) BRIGITTE PLASENCIA APRN Jul 12, 2022 17:44 JOSE CARLOS BELLO MD Jul 15, 2022 11:55
--- NOTE | 2022-07-12 17:48 | Diagnostic Imaging Report ---
EXAMINATION: Chest radiograph, portable AP view. DATE: 07/12/2022 5:44 PM INDICATION: 41-year-old female, chest pain. COMPARISON: March 17, 2022. FINDINGS: Heart size and mediastinal contours are unchanged. There is no identified pneumothorax. There is no large pleural effusion. There is no identified interval focal airspace consolidation. IMPRESSION: No identified acute cardiopulmonary abnormality. Dictated by: Dictated on workstation # [id number]
[2022-07-12 17:49] LABS: ALBUMIN 4.4 GM/DL (3.2-4.5)
[2022-07-12 17:50] LABS: CHLORIDE 107 MMOL/L (98-107); POTASSIUM 3.6 MMOL/L (3.6-5.0); SODIUM 140 MMOL/L (135-145)
[2022-07-12 17:52] LABS: GLUCOSE 142 MG/DL (70-105); TOTAL PROTEIN 7.3 GM/DL (6.4-8.2)
[2022-07-12 17:53] LABS: CARBON DIOXIDE 22 MMOL/L (21-32)
[2022-07-12 17:54] LABS: BILIRUBIN,TOTAL 0.2 MG/DL (0.1-1.0)
[2022-07-12 17:55] LABS: INR 1.1 (0.8-1.4); PROTHROMBIN TIME PATIENT 14.8 SEC (12.2-14.7)
[2022-07-12 17:56] LABS: ALKALINE PHOSPHATASE 52 U/L (40-136); CREATININE SERUM 0.97 MG/DL (0.60-1.30); GFR ESTIMATED 75
[2022-07-12 17:57] LABS: BUN/CREATININE RATIO 8
[2022-07-12 17:59] LABS: ALANINE AMINOTRANSFERASE 22 U/L (0-55); MAGNESIUM 1.6 MG/DL (1.6-2.4)
[2022-07-12] MEDS ORDERED: ONDANSETRON 4 MG/2 ML (SDV) Z0FRAN IVP ONE (18:00)
[2022-07-12 18:02] LABS: EOSINOPHILS % (MANUAL) 1 %; LYMPHOCYTES % (MANUAL) 35 %; MONOCYTES % (MANUAL) 6 %; NEUTROPHILS % (MANUAL) 58 %; RBC MORPH NORMAL
[2022-07-12] MEDS ORDERED: ACETAMINOPHEN 500 MG TAB (TYLENOL) PO ONE (19:45)
[2022-07-12 20:00] VITALS: BP 112/82
== END 2022-07-12 20:00 | disposition home or self-care (01) ==
LOC: EDUNIT# 17:23 → ER 17:26
DX: R07.89 Other chest pain (principal); E66.9 Obesity, unspecified; E11.9 Type 2 diabetes mellitus without complications; D72.829 Elevated white blood cell count, unspecified; F17.210 Nicotine dependence, cigarettes, uncomplicated; Z79.4 Long term (current) use of insulin; Z68.39 Body mass index [BMI] 39.0-39.9, adult
CPT/HCPCS: 36415; 71045; 80053; 83735; 84484; 85007; 85027; 85610; 85730; 93005; 93041

== ENCOUNTER 2022-07-25 19:45 | Outpatient (CLI) | payer MEDICARE, MEDICAID | END 2022-07-26 05:45 | disposition home or self-care (01) | LOC: SLEEP 19:45 | PROVIDERS: ATTEND Nurse Practitioner Family | DX: G47.33 Obstructive sleep apnea (adult) (pediatric) (principal); Z78.9 Other specified health status; E66.01 Morbid (severe) obesity due to excess calories | CPT/HCPCS: 95811 ==

== ENCOUNTER → 2022-09-15 | Outpatient (CLI) | payer MEDICARE, MEDICAID | LOC: CARD 14:09 | PROVIDERS: ATTEND Internal Medicine Cardiovascular Disease | DX: I11.9 Hypertensive heart disease without heart failure (principal); I25.10 Atherosclerotic heart disease of native coronary artery without angina pectoris | CPT/HCPCS: 93306 ==